=== PATIENT | female | born 1955 | race Caucasian/White ===

== ENCOUNTER → 2021-03-07 08:02 | Outpatient (CLI) | payer OTHER, SELFPAY ==
--- NOTE | ~2021-03-07 | XR_ITS ---
EXAMINATION: XR hip RT min 2V EXAM DATE: 03/07/2021 08:42 INDICATION: Pain in right hip joint . TECHNIQUE: Right hip frontal, 'frog leg' projections for interpretation. There is no prior study fo r comparison. FINDINGS: Smooth right hip femoral head contour, no radiographic evidence of avascular necrosis. The re is mild to moderate right hip primary osteoarthritis. There are no acute fractures or dislocations identified. There is no subcutaneous gas. The soft tissue is unremarkable. There are no radiopaq ue foreign bodies. IMPRESSION: Mild to moderate right hip osteoarthritis. Reviewed, dictated and finalized at location B.
--- NOTE | ~2021-03-07 | XR_ITS ---
EXAMINATION: XR shoulder LT min 2V EXAM DATE: 03/07/2021 08:42 INDICATION: Pain of left shoulder joint. TECHNIQUE: The following left shoulder projections obtained: frontal projection with internal rotatio n, frontal projection with external rotation, Grashey, and axillary (4+ views). There is no prior st udy for comparison. FINDINGS: No evidence of left shoulder rotator cuff calcific tendinosis. There is minimal glenohum eral joint, mild to moderate acromioclavicular joint primary osteoarthritis. There are no acute fract ures or dislocations identified. There is no subcutaneous gas. The soft tissue is unremarkable. T here are no radiopaque foreign bodies. IMPRESSION: Mild to moderate left acromioclavicular joint osteoarthritis. Reviewed, dictated and finalized at location B.
== END ==
PROVIDERS: PCP Nurse Practitioner Family; Visit Provider Nurse Practitioner Family
DX: M19.012 Primary osteoarthritis, left shoulder (principal); M16.11 Unilateral primary osteoarthritis, right hip
CPT/HCPCS: 73030; 73502

== ENCOUNTER → 2021-04-13 18:08 | Outpatient (CLI) | payer OTHER, SELFPAY ==
--- NOTE | ~2021-04-13 | DEXA_ITS ---
Bone Density Report Name: Celi Velasco Age: 65 Sex: Female Ethnicity: White Date of : 1955 Indication: postmenopausal; screening for osteoporosis; Referring Provider: Sonja, Deidra Sierra Study: Bone densitometry was performed. Exam Date: April 13, 2021 Accession number: [id number] Bone Density: Region BMD T-score Z-score Classification AP Spine (L1-L4) 1.060 0.1 1.8 Normal Femoral Neck (Left) 0.756 -0.8 0.6 Normal Total Hip (Left) 0.978 0.3 1.5 Normal Femoral Neck (Right) 0.764 -0.8 0.7 Normal Total Hip (Right) 0.937 0.0 1.2 Normal Total Hip Mean 0.958 0.2 1.4 Normal World Health Organization criteria for BMD impression classify patients as: Normal (T-score at or above -1.0), Osteopenia (T-score between -1.0 and -2.5), or Osteoporosis (T-score at or below -2.5). 10-year Fracture Risk: FRAX not reported because: All T-scores for Spine Total, Hip Total, Femoral Neck at or above -1.0 Previous Exams: Region Exam Age BMD T-score BMD Change BMD Change Date g/cm2 vs Baseline vs Previous AP Spine(L1-L4) 04/13/2021 65 1.060 0.1 -0.018 -0.018 02/11/2014 58 1.079 0.3 Total Hip(Left) 04/13/2021 65 0.978 0.3 -0.037* -0.005 02/11/2014 58 0.983 0.3 -0.032* -0.014 02/22/2010 54 0.997 0.4 -0.018 -0.018 01/28/2008 52 1.015 0.6 Total Hip(Right) 04/13/2021 65 0.937 0.0 -0.055* -0.031* 02/11/2014 58 0.969 0.2 -0.024 -0.006 02/22/2010 54 0.975 0.3 -0.017 -0.017 01/28/2008 52 0.993 0.4 *Denotes significance at 95% confidence level, LSC for AP Spine = 0.022 g/cm2, LSC for Total Hip = 0.027 g/cm2 Clinical Information Provided by Patient: Has used the following medications: Vitamin D, Calcium Patient maximum height was 67.7 Menopause Age: 49 No regular weight bearing exercise Drinks caffeinated beverages Onset of menses at age 13 Number of children 3 Impression: The patient has normal bone mass. The BMD for the Total Hip(Right) decreased, changing by -0.031 since the last DXA exam. Discussion: BONE DENSITY IS ABOVE THE MINIMUM DESIRABLE LEVEL AT ALL SKELETAL SITES TESTED. This patient?s bone mineral density is above the minimum desirable level (T-score -1.0 or better) at all sites measured. The patient should follow a healthful lifestyle (good nutrition with adequate calciu
== END ==
PROVIDERS: PCP Nurse Practitioner Family; Visit Provider Nurse Practitioner Family
DX: Z78.0 Asymptomatic menopausal state (principal)
CPT/HCPCS: 77080

== ENCOUNTER 2022-06-14 08:52 | Emergency (ER) | payer MEDICARE, SELFPAY ==
--- NOTE | ~2022-06-14 | CT_ITS ---
EXAMINATION: CTA chest PE protocol DATE: 06/14/2022 11:03 INDICATION: Chest pain. Elevated d-dimer. TECHNIQUE: Computed tomography (CT) pulmonary angiogram of the chest was performed with 100 mL Omnipa que-350 intravenous contrast. Additional 3D reconstructions utilizing coronal maximum intensity proje ction (MIP) were performed. Automated exposure control and iterative reconstruction technique were em ployed. The dose-length product was 342.49 mGy-cm. COMPARISON: None FINDINGS: Excellent contrast opacification of the pulmonary arteries. There is mild streak artifact from dense contrast in the superior vena cava and right atrium. Mild scattered respiratory motion artifact which does not significantly limit evaluation. No pulmonary embolism. Mild dependent atelectasis in the bi lateral lower lobes with additional small region of discoid atelectasis at the anterobasilar left low er lobe. Tiny left pleural effusion. No pneumonia, pulmonary edema, pneumothorax or right pleural eff usion. Heart size is normal. No pericardial effusion. Thoracic aorta is normal in caliber with no dis section. No pathologically enlarged thoracic lymphadenopathy. Bilateral breast implants. Visualized u pper abdomen is unremarkable. Minimal thoracic spondylosis. Nondisplaced lateral left fourth rib frac ture and mildly displaced lateral left fifth and sixth rib fractures. IMPRESSION: 1. Bilateral left fourth-sixth rib fractures with tiny left pleural effusion. No pulmonary embolism, pneumothorax or other acute cardiopulmonary disease. Reviewed, dictated and finalized at location B. IMPRESSION: 1. Bilateral left fourth-sixth rib fractures with tiny left pleural effusion. N o pulmonary embolism, pneumothorax or other acute cardiopulmonary disease.
--- NOTE | ~2022-06-14 | XR_ITS ---
EXAMINATION: XR ribs LT 2V w CXR 2V DATE: 06/14/2022 10:17 INDICATION: Left chest pain. TECHNIQUE: Frontal and lateral views of the chest and 2 views on 3 radiographs of the left ribs were obtained. COMPARISON: Chest radiograph 07/14/2018 FINDINGS: CHEST TWO VIEWS: There are airspace opacities at left lung base. There is a small left pleural effusi on. There is mild scarring at the lung apices. No pneumothorax. The heart size is normal. LEFT RIBS: There are fractures of left fourth-sixth ribs. IMPRESSION: 1. Acute fractures of left fourth-sixth ribs. 2. Small left pleural effusion. 3. Airspace opacities at left lung base, likely atelectasis. Reviewed, dictated and finalized at location A.
[2022-06-14 08:56] VITALS: PULSE 75; RESP 20; TEMP 36.8; O2SAT 99
--- NOTE | 2022-06-14 09:02 | ECG_ITS ---
Measurements Intervals Brick Rate: 68 P: 53 MO: 151 QRS: 2 QRSD: 89 T: 31 QT: 381 QTc: 408 Interpretive Statements SINUS RHYTHM LOW QRS VOLTAGE IN PRECORDIAL LEADS [QRS DEFLECTION < 1.0 mV IN CHEST LEADS] POSSIBLE ANTERIOR MYOCARDIAL INFARCTION , OF INDETERMINATE AGE [30 ms Q WAVE IN V3/V4, OR R < 0.2 mV IN V4] NO PREVIOUS ECG AVAILABLE FOR COMPARISON Electronically Signed On 06-14-2022 14:51:52 CDT by Hoang Winston M.D.
--- NOTE | 2022-06-14 09:12 | ED.FALL ---
HPI - Fall General Chief Complaint: Fall <BELÉN Townsend Last Filed: 06/14/22 14:19> Stated Complaint: Fall on saturday, chest pain <BELÉN Townsend Last Filed: 06/14/22 14:19> Time Seen by Provider: 06/14/22 08:57 <BELÉN Townsend Last Filed: 06/14/22 14:19> Source: patient <BELÉN Townsend Last Filed: 06/14/22 14:19> Mode of arrival: ambulatory <BELÉN Townsend Last Filed: 06/14/22 14:19> Limitations: no limitations <BELÉN Townsend Last Filed: 06/14/22 14:19> History of Present Illness HPI Narrative: Patient is a 66 y/o female who presents to the ED with c/o a fall. Patient reports she was walking down a hill at [facility] presents today which she tripped and fell. She did not hit her head or lose consciousness. No prodromal symptoms. She is unsure how she landed exactly. Since then, she has had pain in her left anterior chest pain under her left breast, radiating to her lateral chest wall. She states the pain aggravated with talking, movement, coughing, taking deep breaths. Patient takes meloxicam for arthritis and has not tried anything further for pain. Denies chest pain at rest. Denies shortness of breath. Denies abdominal pain, nausea, vomiting, headache. Patient has history of hyperlipidemia, but denies hypertension, diabetes, smoking, family history of heart disease. <BELÉN Townsend Last Filed: 06/14/22 14:19> Related Data Allergies/Adverse Reactions: Allergies Allergy/AdvReac Type Severity Reaction Status Date / Time naproxen AdvReac Unknown Nausea and Unverified 07/14/18 14:25 Vomiting <BELÉN Townsend Last Filed: 06/14/22 14:19> Review of Systems Review of Systems: CONSTITUTIONAL: Denies fever, chills, or sweats. EYES: Denies visual changes. CARDIOVASCULAR: Denies CP. RESPIRATORY: Reports pleuritic pain. Denies cough or dyspnea. GASTROINTESTINAL: Denies abdominal pain, nausea, vomiting, or diarrhea. MUSCULOSKELETAL: Reports L chest wall, rib pain. NEUROLOGIC: Denies HI, LOC, headache, numbness, or weakness. <Tila Acuña PA-C - Last Filed: 06/14/22 14:19> All systems reviewed & are unremarkable except as noted in HPI and below <Tila Acuña PA-C - Last Filed: 06/14/22 14:19> PMFSH Past Medical History Medical History: Medical History (Updated 06/14/22 @ 11:38 by Tila Acuña PA-C) Depression Glaucoma HLD (hyperlipidemia) <Tila Acuña PA-C - Last Filed: 06/14/22 14:19> Surgical History Surgical History: Surgical History (Updated 06/14/22 @ 09:16 by Tila Acuña PA-C) No pertinent past surgical history <Tila Acuña PA-C - Last Filed: 06/14/22 14:19> Social History Social History: Social History (Updated 06/14/22 @ 09:16 by Tila Acuña PA-C) Smoking status: Never smoker <Tila Acuña PA-C - Last Filed: 06/14/22 14:19> Exam Narrative: GENERAL: Well appearing, well-nourished, non-toxic, in no acute distress. HEAD: Normocephalic, atraumatic. NECK: Supple. No adenopathy, no masses. No midline spinal tenderness. RESPIRATORY: Airway patent, respirations nonlabored. Clear to auscultation bilaterally, no rales, rhonchi, wheezing. No splinting or decreased lung sounds. CARDIOVASCULAR: Regular rate and rhythm without murmurs, rubs, or gallops. Peripheral pulses 2+ and equal bilaterally. ABDOMINAL: Soft, nontender, nondistended, no hepatosplenomegaly. Normoactive BS. MUSCULOSKELETAL: Moves all extremities. Strength/ROM intact without gross deformities or TTP. No edema. No calf tenderness. TTP over left sided anterior chest wall, under left breast, laterally below axillary region. No significant posterior chest wall/rib cage tenderness. No midline spinal tenderness. SKIN: Warm, dry, normal color. No rashes. NEURO: A&O X3. Speech clear. Cranial nerves II-XI
[2022-06-14 09:48] LABS: Basophils Absolute Auto 0.1 K/mm3 (0.0-0.1); Basophils Percent Auto 1.2 % (0.2-1.2); Eosinophils Absolute Auto 0.2 K/mm3 (0-0.3); Eosinophils Percent Auto 3.6 % (0-4.4); Hematocrit 37.3 % (37.0-47.0); Hemoglobin 12.3 g/dL (12.0-15.0); Immature Granulocyte Absolute 0.01 K/mm3 (0.00-0.031); Immature Granulocyte Percent A 0.2 % (0-0.5); Lymphocytes Absolute Auto 1.32 K/mm3 (0.9-3.2); Lymphocytes Percent Auto 23.5 % (18.3-44.2); Mean Corpuscular Hemoglobin 30.4 pg (26-34); Mean Corpuscular Volume 92.3 fl (80-100); Mean Platelet Volume 9.1 fl (7.4-10.4); Monocytes Absolute Auto 0.4 K/mm3 (0.1-0.6); Monocytes Percent Auto 6.8 % (2.6-8.5); Neutrophils Absolute Auto 3.6 K/mm3 (1.3-6.7); Neutrophils Percent Auto 64.7 % (45.5-73.1); Platelet Count Result 210 k/mm3 (150-375); Red Blood Count 4.04 M/mm3 (4.2-5.4); Red Cell Distribution Width 12.6 % (11.5-14.5); White Blood Count 5.6 K/mm3 (4.5-10.0)
[2022-06-14 10:12] LABS: Alanine Aminotransferase 36 U/L (6-35); Albumin Level 4.2 g/dL (3.5-5.1); Alkaline Phosphatase 110 U/L (38-126); Anion Gap 6 mmol/L (8-16); Aspartate Amino Transferase 41 U/L (14-36); Bilirubin,Total 0.5 mg/dL (0.2-1.3); Blood Urea Nitrogen 21 mg/dL (7-17); Calcium 9.2 mg/dL (8.4-10.2); Carbon Dioxide 28 mmol/L (22-30); Chloride 102 mmol/L (98-107); Estimated Glomerular Filt Rate 56; Glucose 105 mg/dL (65-110); Potassium 4.3 mmol/L (3.4-5.0); Sodium 136 mmol/L (137-145)
[2022-06-14 10:14] LABS: Ovalocytes 1+ (NORMAL); Platelet Estimate Adequate (Adequate)
[2022-06-14 10:15] LABS: D Dimer 1.72 ug/mL (<0.48)
[2022-06-14 10:15] LABS: Schistocytes None Seen (NORMAL)
[2022-06-14 10:23] LABS: Troponin I < 0.012 ng/mL (0.000-0.034)
[2022-06-14 11:02] VITALS: BP 142/94; PULSE 70; RESP 18; O2SAT 99
[2022-06-14] MEDS: MORPHINE SULFATE (*CRX) 4 MG/ML INJ IV PUSH (12:01)
[2022-06-14] MEDS: ONDANSETRON INJ 4 MG/2 ML VIAL IV PUSH (12:02)
== END 2022-06-14 12:10 | disposition home or self-care (01) ==
PROVIDERS: Physician Assistant; Emergency Provider Emergency Medicine; PCP Nurse Practitioner Family
DX: S22.42XA Multiple fractures of ribs, left side, initial encounter for closed fracture (principal); E78.5 Hyperlipidemia, unspecified; M19.90 Unspecified osteoarthritis, unspecified site; H40.9 Unspecified glaucoma; R94.31 Abnormal electrocardiogram [ECG] [EKG]; W10.2XXA Fall (on)(from) incline, initial encounter
CPT/HCPCS: 36415; 71046; 71100; 71275; 80053; 84484; 85025; 85380; 93005; 96365; 96375; 99284; J0131; J2270; J2405; Q9967

== ENCOUNTER → 2022-12-25 10:56 | Outpatient (CLI) | payer MEDICARE, SELFPAY ==
--- NOTE | ~2022-12-25 | XR_ITS ---
EXAMINATION: XR hip RT min 2V DATE: 12/25/2022 11:31 INDICATION: Right hip pain TECHNIQUE: Two views of right hip were obtained. COMPARISON: 03/07/2021 FINDINGS: Bone alignment is normal. There is moderate osteoarthritis of the hip. No fracture is ident ified. IMPRESSION: 1. Moderate hip osteoarthritis without acute findings. Reviewed, dictated and finalized at location L.
== END ==
PROVIDERS: PCP Nurse Practitioner Family; Visit Provider Nurse Practitioner Family
DX: M16.11 Unilateral primary osteoarthritis, right hip (principal); M25.551 Pain in right hip
CPT/HCPCS: 73502

== ENCOUNTER 2023-05-03 10:02 | Inpatient (IN) | payer MEDICARE, SELFPAY ==
[2023-05-03] VITALS (15 sets, daily range): BP systolic 115–131; BP diastolic 64–85; PULSE 68–93; RESP 18–20; TEMP 36.6–36.9; O2SAT 92–100; BMI 25.1
--- NOTE | ~2023-05-03 | MR_ITS ---
EXAMINATION: MR MRCP wo/w con/w 3D wo ind DATE: 05/04/2023 09:25 INDICATION: Right upper quadrant pain TECHNIQUE: Magnetic resonance imaging (MRI) of the abdomen was performed without and with intravenous contrast. Sequences included coronal T2-weighted SS-FSE ARC, coronal T2-weighted FS SS-FSE, coronal T2-weighted 2D FS FIESTA, Water:Coronal LAVA-Flex, sagittal T2-weighted SS-FSE ARC, axial SSFSE ARC, axial 3D DualEcho, axial DWI B=600, axial T1-weighted LAVA, FAT:Coronal LAVA-Flex, and coronal in and opposed phase LAVA-Flex. Thick-slab T2-weighted FRFSE-XL images were obtained for magnetic resonance cholangiopancreatography (MRCP). Maximum intensity projection 3-D reconstructions of the volumetric data were created by the technologist. Postcontrast sequences included a time course of axial T1-weig hted LAVA, FAT:Coronal LAVA-Flex, coronal in and opposed phase LAVA-Flex, and Water:Coronal LAVA-Flex . COMPARISON: CT, 05/03/2023 CONTRAST: Multihance, 14 cc FINDINGS: ABDOMEN MRI: Bilateral breast implants are noted. The gallbladder is distended and contains multiple stones. There is wall thickening the gallbladder with small amount of pericholecystic fluid. The live r, spleen, pancreas, and adrenal glands are normal. There is no abnormal enhancement after contrast a dministration. No pathologically enlarged abdominal lymph nodes are identified. There are no dilated loops of bowel. ABDOMEN MRCP: There are no stones or stricture of the common bile duct. The pancreatic duct is normal in caliber. The normal common bile duct measures 6 mm. IMPRESSION: 1. Findings consistent with acute cholecystitis. 2. No stones or stricture of the common bile duct. Reviewed, dictated and finalized at location A.
--- NOTE | ~2023-05-03 | CT_ITS ---
CT of the Abdomen and Pelvis: Indication: Right upper quadrant pain Technique: 2.5 mm axial scans were obtained through the abdomen and pelvis following intravenous adm inistration of 100 cc of Omnipaque 350. Dose reduction technique was used on this scan by utilizing a utomated exposure control and iterative reconstruction technique. The dose-length product (DLP) was 5 92.12 mGy-cm. COMPARISON: 10/11/2008 Findings: Scans through the lung bases are unremarkable. The liver, spleen, pancreas, adrenals and kidneys are within normal limits. There is mild gallbladder wall thickening. Small gallstone present near the gallbladder neck. No evidence of aortic aneurysm. No lymphadenopathy. No bowel obstruction or bowel wall thickening. There is no evidence to suggest acute appendicitis. Th ere is colonic diverticulosis. Images through the pelvis were performed. Urinary bladder unremarkable. No adnexal mass seen. No asci aric. Impression: Cholelithiasis and mild gallbladder wall thickening. Findings could reflect acute cholecystitis. Taqueria elate clinically. Consider ultrasound and/or HIDA scan as indicated. Reviewed, dictated and finalized at location . Impression: Cholelithiasis and mild gallbladder wall thickening. Findings could reflect acu te cholecystitis. Correlate clinically. Consider ultrasound and/or HIDA scan as indicated.
--- NOTE | ~2023-05-03 | US_ITS ---
EXAMINATION: US right upper quadrant DATE: 05/03/2023 11:33 INDICATION: Cholecystitis TECHNIQUE: Multiple grayscale and Doppler ultrasound images of the abdomen were obtained. COMPARISON: 02/15/2014 FINDINGS: The body and visualized tail the pancreas are normal. Portions of the pancreatic head and distal most tail are excluded from the [id number]. The proximal abdominal aorta and inferior vena cava are no rmal. Liver has normal contour, with a smooth surface. There is increased parenchymal echogenicity an d coarsened echotexture consistent with diffuse hepatic steatosis. No intrahepatic biliary duct dilat ion suspected. Portal venous flow was seen in the hepatopetal, normal direction and has normal Dopple r waveform. There are a few small shadowing gallstones in the dependent aspect of the gallbladder whi ch is dilated to 4.3 cm in maximal diameter with borderline gallbladder wall thickening. The common b ile duct measures 5 mm, which is normal. Sonographic Kendrick sign was reported as positive by the sono grapher. IMPRESSION: 1. Mildly dilated gallbladder with borderline wall thickening, cholelithiasis and positive sonographi c Kendrick's sign consistent with acute cholecystitis. Reviewed, dictated and finalized at location A. IMPRESSION: 1. Mildly dilated gallbladder with borderline wall thickening, cholelithiasis a nd positive sonographic Kendrick's sign consistent with acute cholecystitis.
--- NOTE | 2023-05-03 10:21 | ED.NAVMDI ---
HPI - Nausea/Vomiting/Diarrhea General Chief complaint: Nausea/Vomiting/Diarrhea Stated complaint: Dr sent for gallbladder Time Seen by Provider: 05/03/23 10:20 Source: patient and family (boyfriend) Mode of arrival: ambulatory Limitations: no limitations History of Present Illness HPI Narrative: Patient is a pleasant 67-year-old female with a past medical hx of depression, glaucoma, thyroid disease and HLD who presents to the emergency department today ambulatory with a steady gait by private vehicle for evaluation of having a gallbladder attack. She has had 2 days of nausea, vomiting, pain. she denies diarrhea. she states that she has had this happen in the past 2-3 times. She denies fever, chills, urinary symptoms, alcohol use, chest pain, shortness of breath, dizziness, back pain, urinary symptoms. Related Data Home Medications Medication Instructions Recorded Confirmed atorvastatin 10 mg tablet 10 mg PO DIRECTED 05/03/23 05/03/23 brimonidine 0.2 %-timolol 0.5 % 2 drp EACH EYE DAILY 05/03/23 05/03/23 eye drops (Combigan) doxycycline monohydrate 100 mg 100 mg PO DAILY 05/03/23 05/03/23 tablet levothyroxine 75 mcg tablet 75 mcg PO DAILY 05/03/23 05/03/23 Allergies Allergy/AdvReac Type Severity Reaction Status Date / Time naproxen AdvReac Unknown Nausea and Verified 05/03/23 10:15 Vomiting Review of Systems Review of Systems: CONSTITUTIONAL: Denies fever, chills, or sweats. EYES: Denies visual changes, redness, or discharge. ENT: Denies rhinorrhea, congestion, sore throat, or otalgia. CARDIOVASCULAR: Denies chest pain, palpitations, or edema. RESPIRATORY: Denies cough or dyspnea. GASTROINTESTINAL: RUQ and epigastric abdominal pain, nausea, vomiting. denies diarrhea. GENITOURINARY: Denies dysuria or hematuria. SKIN: Denies rash or itching. MUSCULOSKELETAL: Denies back pain, joint pain, or myalgia. NEUROLOGIC: Denies headache, numbness, or weakness. PSYCHIATRIC: Denies anxiety or depression. All systems reviewed & are unremarkable except as noted in HPI and below PMFSH Past Medical History Medical History Depression Glaucoma HLD (hyperlipidemia) Mitral valve prolapse Osteoarthritis Surgical History Surgical History No pertinent past surgical history Family History Family History Mother Cholecystitis Sibling Cholecystitis Postoperative acute deep vein thrombosis (DVT) of lower extremity Social History Social History Smoking status: Never smoker Alcohol intake: never Substance use: never Lack of Transportation: No Lack of Food: Never True Current Housing: I Have Housing Concerned About Future Housing: No Difficulty Paying Gas/Electric Bills: No Difficulty Paying for Meds: No Currently Unemployed: YES Education: High School Diploma/GED Difficulty w/ Childcare or Family Care: No Living arrangements: with family Spiritual care concerns: No Exam Narrative: GENERAL: Well-appearing, well-nourished, and in no acute distress. HEAD: Normocephalic, atraumatic. EYES: PERRLA and EOMI. ENT: Nares clear, no rhinorrhea or epistaxis. Mucous membranes moist. NECK: Supple. CHEST: Clear to auscultation. No respiratory distress. HEART: Regular rate and rhythm. No murmur heard. Normal peripheral pulses. ABDOMEN: Soft, TTP to epigastric and RUQ, nondistended, normal active bowel sounds. EXTREMITIES: Normal range of motion. No edema. SKIN: Warm, dry, no rash. NEURO: No focal deficits. Alert and oriented x3. CN II-XII grossly intact PSYCH: Normal mood and affect. Course PALS SPECIALIST/PA Physician Supervision discussed admission with Mechelle Ambriz MD ED attending, aware of admission and agreeable Reevaluation(s) Reevaluation #1:
[2023-05-03 10:25] LABS: Basophils Percent Auto 0.6 % (0.2-1.2); Eosinophils Absolute Auto 0.2 K/mm3 (0-0.3); Eosinophils Percent Auto 2.2 % (0-4.4); Hematocrit 36.4 % (37.0-47.0); Hemoglobin 12.2 g/dL (12.0-15.0); Immature Granulocyte Absolute 0.02 K/mm3 (0.00-0.031); Immature Granulocyte Percent A 0.3 % (0-0.5); Lymphocytes Percent Auto 13.3 % (18.3-44.2); Mean Corpuscular HGB Conc 33.5 g/dl (32-36); Mean Corpuscular Hemoglobin 31.9 pg (26-34); Mean Platelet Volume 9.2 fl (7.4-10.4); Monocytes Absolute Auto 0.5 K/mm3 (0.1-0.6); Monocytes Percent Auto 6.7 % (2.6-8.5); Neutrophils Absolute Auto 5.2 K/mm3 (1.3-6.7); Neutrophils Percent Auto 76.9 % (45.5-73.1); Platelet Count Result 230 k/mm3 (150-375); Red Blood Count 3.83 M/mm3 (4.2-5.4); Red Cell Distribution Width 12.4 % (11.5-14.5); White Blood Count 6.8 K/mm3 (4.5-10.0)
[2023-05-03 10:27] LABS: Appearance Urine Clear (Clear); Bilirubin Urine Negative (Negative); Blood Urine Negative (Negative); Color Urine Yellow (Yellow); Glucose Urine UA Negative (Negative); Ketones Urine Negative (Negative); Leukocyte Esterase Ur Negative LEU/UL (Negative); Nitrate Urine Negative (Negative); Protein Urine Negative (Negative); Specific Grav Ur 1.015 (1.001-1.035); Urobilinogen Urine 0.2 mg/dL (<2.0)
[2023-05-03 10:31] LABS: Add Urine Microscopic? NO
[2023-05-03 10:41] LABS: Alanine Aminotransferase 517 U/L (6-35); Albumin Level 4.4 g/dL (3.5-5.1); Alkaline Phosphatase 99 U/L (38-126); Anion Gap 3 mmol/L (8-16); Aspartate Amino Transferase 613 U/L (14-36); Bilirubin,Total 0.9 mg/dL (0.2-1.3); Blood Urea Nitrogen 18 mg/dL (7-17); Calcium 9.6 mg/dL (8.4-10.2); Carbon Dioxide 32 mmol/L (22-30); Chloride 101 mmol/L (98-107); Estimated CRCL calculation 52 ml/min; Estimated Glomerular Filt Rate > 60; Glucose 108 mg/dL (65-110); Potassium 3.7 mmol/L (3.4-5.0); Sodium 136 mmol/L (137-145)
[2023-05-03 10:55] LABS: Amylase 1655 U/L (30-110)
[2023-05-03 11:33] LABS: Lipase 14579 U/L (23-300)
[2023-05-03] MEDS: SODIUM CHLORIDE 0.9% IV 1,000 ML 999 ML IV CONT (12:51)
[2023-05-03] MEDS: fentaNYL CITRATE INJ (*CRX) 100 MCG/2 ML VIAL 75 MCG IV PUSH (12:53)
[2023-05-03] MEDS: ONDANSETRON INJ 4 MG/2 ML VIAL IV PUSH (12:55)
[2023-05-03] MEDS: FAMOTIDINE 20 MG/2 ML VIAL IV PUSH (12:56)
[2023-05-03] MEDS: ceFAZolin 2 GM/D5W 50 ML 2 GM/50 ML BAG IVPB (13:07)
--- NOTE | 2023-05-03 13:56 | PM.IMHP ---
H&P: HPI History of Present Illness Date/Time: 05/03/23 13:56 Chief Complaint: Nausea, vomiting, abdominal pain Narrative: Patient is a 67-year-old female with past med history of hyperlipidemia, depression, osteoarthritis, mitral valve prolapse who presents to ED complaints of abdominal pain, nausea, and vomiting. This is patient's 3rd episode of having the symptoms of nausea, vomiting, diaphoresis, and abdominal pain. Her symptoms are yesterday started to ease up around 4:30. She called her PCP who directed her to the ED. patient is otherwise very active, lives with her is independent. She has family history of gallbladder issues with her mother and sister both having episodes of cholecystitis. She reports that her sister diet from a DVT after back surgery she is concerned that she is hypercoagulable. In the ED: No leukocytosis, she has significant elevated LFTs AST 613, ALT 517, amylase 1655, lipase 14,000. Right upper quadrant ultrasound shows mildly dilated gallbladder with wall thickening consistent with acute cholecystitis. Abdominal CT scan shows cholelithiasis and mild gallbladder thickening. General surgery was consulted who recommended ordering an MRCP and will see patient in consultation for cholecystectomy. Gastroenterology has been informed patient may need ERCP with concern of gallstone pancreatitis. Patient being admitted for further evaluation and treatment of acute cholecystitis, choledocholithiasis, gallstone pancreatitis. Review of Systems Review of Systems: Constitutional: No Fever, No Chills, No Night Sweats, endorses episode of diaphoresis ENT/Mouth: No Hearing Changes, No Ear Pain, No Nasal Congestion, No Sinus Pain, No Hoarseness, No sore throat, No Rhinorrhea, No Swallowing Difficulty Eyes: No Eye Pain, No Redness, No Vision Changes Cardiovascular: No Chest Pain, No Palpitations, No Dyspnea on Exertion, No Orthopnea, No Claudication, No Edema Respiratory: No Cough, No Sputum, No Wheezing, No Shortness of Breath Gastrointestinal: Endorses nausea, vomiting, abdominal pain Genitourinary: No Dysuria, No Urinary Frequency, No Hematuria, No Urinary Incontinence, No Urgency Musculoskeletal: No Arthralgias, No Myalgias, No Joint Swelling, No Joint Stiffness, No Back Pain Skin: No Skin Lesions, No Pruritis, No Hair Changes Neuro: No Weakness, No Numbness, No Paresthesias, No Loss of Consciousness, No Syncope, No Dizziness, No Headache Psych: No Anxiety/Panic, No Depression, No Insomnia Heme: No Bruising, No Bleeding Lymph: No Adenopathy Endocrine: No Polyuria, No Polydipsia, No Temperature Intolerance PMF Past Medical History Medical History Depression Glaucoma HLD (hyperlipidemia) Mitral valve prolapse Osteoarthritis Surgical History Surgical History No pertinent past surgical history Family History Family History Mother Cholecystitis Sibling Cholecystitis Postoperative acute deep vein thrombosis (DVT) of lower extremity Social History Social History Smoking status: Never smoker Substance use: never Living arrangements: with family Meds Home Medications and Allergies Home Medications Medication Instructions Recorded Confirmed Type hydrocodone 5 mg-acetaminophen 325 1 tablet PO Q6H PRN pain #20 tabs 06/14/22 Rx mg tablet Allergies Allergy/AdvReac Type Severity Reaction Status Date / Time naproxen AdvReac Unknown Nausea and Verified 05/03/23 10:15 Vomiting Vital Signs Vital Signs - 24 hr 05/03/23 10:10 05/03/23 12:11 05/03/23 12:12 Temperature 36.9 C Pulse Rate 93 Respiratory Rate 18 Blood Pressure 121/65 126/78 Pulse Oximetry 97 99 100 Oxygen Delivery Room Air 05/03/23 12:15 05/03/23
[2023-05-03] MEDS: LACTATED RINGERS 1,000 ML 100 ML IV CONT (16:16)
[2023-05-03] MEDS: MORPHINE SULFATE (*CRX) 2 MG/ML INJ IV PUSH (19:10)
[2023-05-03] MEDS: HYDROcodone/acetaminophen (*CRX) 5-325 MG TABLET 1 TAB PO (22:56)
[2023-05-04] MEDS: MORPHINE SULFATE (*CRX) 2 MG/ML INJ IV PUSH ×2 (04:01→11:05)
[2023-05-04 04:13] VITALS: BP 127/54; PULSE 81; RESP 20; TEMP 36.6; O2SAT 99
[2023-05-04 06:49] LABS: Basophils Percent Auto 0.8 % (0.2-1.2); Eosinophils Absolute Auto 0.2 K/mm3 (0-0.3); Eosinophils Percent Auto 5.3 % (0-4.4); Hematocrit 33.5 % (37.0-47.0); Hemoglobin 10.8 g/dL (12.0-15.0); Immature Granulocyte Absolute 0.01 K/mm3 (0.00-0.031); Immature Granulocyte Percent A 0.3 % (0-0.5); Lymphocytes Absolute Auto 0.88 K/mm3 (0.9-3.2); Lymphocytes Percent Auto 22.2 % (18.3-44.2); Mean Corpuscular HGB Conc 32.2 g/dl (32-36); Mean Corpuscular Hemoglobin 31.4 pg (26-34); Mean Corpuscular Volume 97.4 fl (80-100); Mean Platelet Volume 9.1 fl (7.4-10.4); Monocytes Absolute Auto 0.4 K/mm3 (0.1-0.6); Monocytes Percent Auto 10.3 % (2.6-8.5); Neutrophils Absolute Auto 2.4 K/mm3 (1.3-6.7); Neutrophils Percent Auto 61.1 % (45.5-73.1); Platelet Count Result 182 k/mm3 (150-375); Red Blood Count 3.44 M/mm3 (4.2-5.4); Red Cell Distribution Width 12.3 % (11.5-14.5)
[2023-05-04 06:57] LABS: Alanine Aminotransferase 331 U/L (6-35); Albumin Level 3.6 g/dL (3.5-5.1); Alkaline Phosphatase 93 U/L (38-126); Anion Gap 6 mmol/L (8-16); Aspartate Amino Transferase 274 U/L (14-36); Bilirubin,Total 0.5 mg/dL (0.2-1.3); Blood Urea Nitrogen 14 mg/dL (7-17); Calcium 8.7 mg/dL (8.4-10.2); Carbon Dioxide 31 mmol/L (22-30); Chloride 102 mmol/L (98-107); Estimated CRCL calculation 52 ml/min; Estimated Glomerular Filt Rate > 60; Glucose 89 mg/dL (65-110); Lipase 1913 U/L (23-300); Magnesium 2.1 mg/dL (1.6-2.3); Potassium 3.6 mmol/L (3.4-5.0); Sodium 139 mmol/L (137-145)
--- NOTE | 2023-05-04 08:19 | PM.IMPN ---
Progress Note: A&P Assessment and Plan (1) Acute gallstone pancreatitis: Code(s): K85.10 - Biliary acute pancreatitis without necrosis or infection Status: Acute Assessment and Plan: Third episode of abdominal pain likely recurrent cholecystitis. Now with acute cholecystitis now with elevated LFTs and pancreatic enzymes Abdominal CT scan and ultrasound consistent with acute cholecystitis AST and ALT on admission were 613/517 continue to trend Amylase elevated at 1655 and lipase elevated at 14,579; lipase trending down Will check MRCP to evaluate for possible retained stone and choledocholithiasis General surgery Dr. Frazier consulted for cholecystectomy GI Dr. Reyes consulted for possible ERCP (2) Cholelithiasis with acute cholecystitis: Qualifiers: Biliary obstruction: without biliary obstruction Qualified Code(s): K80.00 - Calculus of gallbladder with acute cholecystitis without obstruction Code(s): K80.00 - Calculus of gallbladder with acute cholecystitis without obstruction Status: Acute Assessment and Plan: Monitor vital signs, I and O's, check stool output, neuro status and patient is a fall risk Monitor serum electrolytes and CBC IV pain management IV fluid resuscitation Zosyn 3.375 mg every 6 hours Consult general surgery and GI for further evaluation, appreciate assistance and recommendation Diet:NPO MRCP ordered Plan chronic conditions -osteoarthritis -history of depression -history of hyperlipidemia -history of mitral valve prolapse -history of hypothyroidism continue Synthroid Subjective Date/time seen: 05/04/23 08:19 Interval history: Patient experiencing active nausea and headache. Abdominal pain has improved as well as her bloating but she is somewhat tender to palpation in the right upper quadrant. Awaiting further instruction from General surgery whether she will undergo cholecystectomy or not. Denies any fevers, vomiting, diarrhea, body aches and chills. Exam Narrative: GENERAL: uncomfortable, no acute distress HENMT: moist mucous membranes EYES: EOM intact b/l NECK: no lymphadenopathy RESPIRATORY: clear to auscultation CARDIO: RRR GI: soft, mild right upper quadrant tenderness to palpation, bowel sounds present SKIN: no rashes EXTREMITIES: no edema, redness or tenderness Objective Data Vital Signs Vital Signs: Vital Signs - 24 hr 05/03/23 10:10 05/03/23 12:11 05/03/23 12:12 Temperature 98.5 F Pulse Rate 93 Respiratory Rate 18 Blood Pressure 121/65 126/78 Pulse Oximetry 97 99 100 Oxygen Delivery Room Air 05/03/23 12:15 05/03/23 12:16 05/03/23 12:30 Temperature Pulse Rate Respiratory Rate Blood Pressure 115/68 131/67 Pulse Oximetry 100 100 99 Oxygen Delivery 05/03/23 12:31 05/03/23 12:45 05/03/23 13:00 Temperature Pulse Rate Respiratory Rate Blood Pressure Pulse Oximetry 99 99 98 Oxygen Delivery 05/03/23 13:17 05/03/23 13:30 05/03/23 14:32 Temperature Pulse Rate 68 80 Respiratory Rate 18 18 Blood Pressure 124/64 130/76 Pulse Oximetry 95 100 99 Oxygen Delivery 05/03/23 17:06 05/03/23 19:45 05/03/23 19:48 Temperature 97.8 F 97.8 F Pulse Rate 80 80 Respiratory Rate 20 20 Blood Pressure 131/75 131/75 Pulse Oximetry 100 100 Oxygen Delivery Room Air 05/03/23 19:55 05/03/23 19:55 05/03/23 20:00 Temperature 97.8 F 97.8 F Pulse Rate 76 86 Respiratory Rate 20 20 Blood Pressure 124/67 120/85 Pulse Oximetry 100 92 Oxygen Delivery Room Air 05/04/23 04:13 Temperature 97.8 F Pulse Rate 81 Respiratory Rate 20 Blood Pressure 127/54 L Pulse Oximetry 99 Oxygen Delivery Intake/Output Intake/Output: Intake & Output 05/01/23 05/02/23 05/03/23 05/04/23 23:59 23:59 23:59 23:59 Intake Total 50 0 Balance 50 0 Meds/Results Medications: Active Medications Generic Name Dose Rout
--- NOTE | 2023-05-04 08:55 | WPDGICN ---
Assessment and Plan Assessment and plan (1) Acute gallstone pancreatitis: Code(s): K85.10 - Biliary acute pancreatitis without necrosis or infection Status: Acute Assessment and Plan: admitted to hospital, pain is better denies alcohol use surgery to see will order MRCP to assess biliary system and rule out bile duct stones (2) Cholelithiasis with acute cholecystitis: Qualifiers: Biliary obstruction: without biliary obstruction Qualified Code(s): K80.00 - Calculus of gallbladder with acute cholecystitis without obstruction Code(s): K80.00 - Calculus of gallbladder with acute cholecystitis without obstruction Status: Acute Assessment and Plan: medical support surgery will assess (3) Elevated liver enzymes: Code(s): R74.8 - Abnormal levels of other serum enzymes Status: Acute Assessment and Plan: from acute presentation monitor and repeat liver enzymes normal bili (4) Upper abdominal pain: Code(s): R10.10 - Upper abdominal pain, unspecified Status: Acute Assessment and Plan: npo, GS pancreatitis GI Consult Note Consult date/time: 05/04/23 08:55 Reason for consult: GS pancreatitis, elevated liver enzymes HPI: Celi Velasco is a 67 year old female with almost 2 days of dyspepsia and intermittent abdominal discomfort, she had 2 episodes of moderate pain but was not enough to come to ER until she had severe pain in upper abdomen with nausea and vomiting, she finally came to ER after she talked to her PCP. ER evaluation without leukocytosis, she has significant elevated LFTs AST 613, ALT 517, amylase 1655, lipase 14,000. Right upper quadrant ultrasound shows mildly dilated gallbladder with wall thickening consistent with acute cholecystitis.? Abdominal CT scan shows cholelithiasis and mild gallbladder thickening. She has family history of gallbladder issues with her mother and sister both having episodes of cholecystitis.?Pain is better now. Review of Systems Constitutional: Constitutional: Denies chills Eyes: Eyes: Denies blurry vision ENT: Reports Normal hearing present Cardiovascular: Cardiovascular: Denies lightheadedness Respiratory: Respiratory: Denies cough Gastrointestinal: Gastrointestinal: Reports abdominal pain, Reports nausea and Reports vomiting Genitourinary: Genitourinary: Denies hematuria Musculoskeletal: Musculoskeletal: Denies neck pain Integumentary/Breasts: Skin/Breast: Denies rash Neurologic: Denies confusion Psychiatric: Psychiatric: Denies behavioral changes [facility] Past Medical History Medical History (Updated 05/04/23 @ 09:01 by Andrew Love MD) Depression Elevated liver enzymes Glaucoma HLD (hyperlipidemia) Mitral valve prolapse Osteoarthritis Upper abdominal pain Surgical History Surgical History No pertinent past surgical history Family History Family History Mother Cholecystitis Sibling Cholecystitis Postoperative acute deep vein thrombosis (DVT) of lower extremity Social History Social History Smoking status: Never smoker Alcohol intake: never Substance use: never Lack of Transportation: No Lack of Food: Never True Current Housing: I Have Housing Concerned About Future Housing: No Difficulty Paying Gas/Electric Bills: No Difficulty Paying for Meds: No Currently Unemployed: YES Education: High School Diploma/GED Difficulty w/ Childcare or Family Care: No Living arrangements: with family Spiritual care concerns: No Meds Home Medications and Allergies Home Medications Medication Instructions Recorded Confirmed Type All Day Calcium 600 mg PO DAILY 05/03/23 05/03/23 History [place] 3 Fish Oil 1,000 mg PO DAILY 05/03/23 05/03/23 History One-A-Da
[2023-05-04] MEDS: ONDANSETRON INJ 4 MG/2 ML VIAL IV PUSH (11:04)
[2023-05-04] MEDS: PIPERACILLN/TAZ 3.375GM/NS50ML 3.375 GM/50 ML BAG IVPB ×3 (11:15→22:05)
--- NOTE | 2023-05-04 11:44 | PHAR ---
Home med verified: Retaine MGD PF eye drops. No Rx information as the product is OTC
--- NOTE | 2023-05-04 13:54 | PM.CNGS ---
Assessment and Plan Assessment and plan (1) Acute gallstone pancreatitis: Code(s): K85.10 - Biliary acute pancreatitis without necrosis or infection Status: Acute Assessment and Plan: await ERCP, exam already improved, continue IV antibiotics, discussed with patient will need interval cholecystectomy History of Present Illness Consult details Consult date: 05/04/23 Reason for consult: abdominal pain Requesting physician: Siddharth Novak DO Narrative: The patient is a 67-year-old female that presented to the emergency department complaining of severe upper abdominal pain. The patient reports the pain has been ongoing for the last few days, however worsened acutely yesterday. Patient reports associated bloating, nausea, poor appetite. The patient reports intermittent symptoms in the past, however nothing this severe or long-lasting. Workup in the emergency department, including imaging, is significant for acute cholecystitis, biliary pancreatitis. The patient reports a strong family history of biliary disease. Review of Systems Review of Systems: All systems reviewed & are unremarkable except as noted in HPI and below PMFSH Past Medical History Medical History Depression Elevated liver enzymes Glaucoma HLD (hyperlipidemia) Mitral valve prolapse Osteoarthritis Upper abdominal pain Surgical History Surgical History No pertinent past surgical history Family History Family History Mother Cholecystitis Sibling Cholecystitis Postoperative acute deep vein thrombosis (DVT) of lower extremity Social History Social History Smoking status: Never smoker Alcohol intake: never Substance use: never Lack of Transportation: No Lack of Food: Never True Current Housing: I Have Housing Concerned About Future Housing: No Difficulty Paying Gas/Electric Bills: No Difficulty Paying for Meds: No Currently Unemployed: YES Education: High School Diploma/GED Difficulty w/ Childcare or Family Care: No Living arrangements: with family Spiritual care concerns: No Meds Home Medications and Allergies Home Medications Medication Instructions Recorded Confirmed Type All Day Calcium 600 mg PO DAILY 05/03/23 05/03/23 History [place] 3 Fish Oil 1,000 mg PO DAILY 05/03/23 05/03/23 History One-A-Day 50 Plus 1 tablet PO DAILY 05/03/23 05/03/23 History Retaine MGD (PF) 1 drp EACH EYE QID 05/03/23 05/03/23 History atorvastatin 10 mg tablet 10 mg PO DAILY 05/03/23 05/04/23 History brimonidine 0.2 %-timolol 0.5 % 2 drp EACH EYE DAILY 05/03/23 05/03/23 History eye drops (Combigan) cyclosporine 0.05 % eye drops in a 1 drp EACH EYE BID 05/03/23 05/04/23 History dropperette (Restasis) doxycycline monohydrate 100 mg 100 mg PO DAILY 05/03/23 05/03/23 History tablet levothyroxine 75 mcg tablet 75 mcg PO DAILY 05/03/23 05/03/23 History meloxicam 15 mg tablet 15 mg PO DAILY 05/03/23 05/03/23 History prednisolone acetate 1 % eye 1 drp EACH EYE QID PRN Eye 05/03/23 05/03/23 History drops,suspension Irritation travoprost 0.004 % eye drops 1 drp EACH EYE HS 05/03/23 05/03/23 History (Travatan Z) Ocuvite Adult 50 Plus 1 tablet BYMOUTH DAILY 05/04/23 05/04/23 History Allergies Allergy/AdvReac Type Severity Reaction Status Date / Time naproxen AdvReac Unknown Nausea and Verified 05/03/23 10:15 Vomiting Vital Signs Vital Signs - 24 hr 05/03/23 14:32 05/03/23 17:06 05/03/23 19:45 Temperature 36.6 C Pulse Rate 80 80 Respiratory Rate 18 20 Blood Pressure 130/76 131/75 Pulse Oximetry 99 100 Oxygen Delivery Room Air 05/03/23 19:48 05/03/23 19:55 05/03/23 19:55 Temperature 36.6 C 36.6 C 36.6 C Pulse Rate 80 76 86 Respiratory Rate 20 20 20 Blood Press
[2023-05-04] MEDS: KETOROLAC 30 MG/ML VIAL (*BKC) IV PUSH (13:58)
[2023-05-04 14:00] VITALS: BP 131/68; PULSE 68; RESP 16; TEMP 36.8; O2SAT 99
[2023-05-04] MEDS: LACTATED RINGERS 1,000 ML 100 ML IV CONT (14:10)
[2023-05-04] MEDS: BRIMONIDINE TARTRATE 0.2% OP SOLN 5 ML BTL 1 DROP EACH EYE (14:22)
[2023-05-04] MEDS: TIMOLOL MALEATE 0.5% OP SOLN 5 ML BOTTLE 1 DROP EACH EYE (14:22)
[2023-05-04] MEDS: cycloSPORINE 0.4 ML OPHTH SOLUTION 1 DROP EACH EYE (14:24)
[2023-05-04] MEDS: LEVOTHYROXINE SODIUM 75 MCG TABLET PO (18:01)
[2023-05-04 21:06] VITALS: BP 120/58; PULSE 73; RESP 18; TEMP 36.4; O2SAT 97
[2023-05-04] MEDS: LATANOPROST 0.005% OP SOLN 2.5 ML BTL 1 DROP EACH EYE (22:13)
[2023-05-05] MEDS: LACTATED RINGERS 1,000 ML 100 ML IV CONT ×2 (02:58→23:42)
[2023-05-05] MEDS: PIPERACILLN/TAZ 3.375GM/NS50ML 3.375 GM/50 ML BAG IVPB ×4 (02:58→20:59)
[2023-05-05] MEDS: ACETAMINOPHEN 325 MG TABLET 650 MG PO (02:59)
[2023-05-05] MEDS: ONDANSETRON INJ 4 MG/2 ML VIAL IV PUSH ×2 (02:59→09:35)
[2023-05-05] MEDS: LEVOTHYROXINE SODIUM 75 MCG TABLET PO (06:12)
[2023-05-05 06:17] VITALS: BP 118/60; PULSE 73; RESP 16; TEMP 36.5; O2SAT 96
[2023-05-05 06:28] LABS: Basophils Percent Auto 0.6 % (0.2-1.2); Eosinophils Absolute Auto 0.2 K/mm3 (0-0.3); Hemoglobin 10.2 g/dL (12.0-15.0); Immature Granulocyte Absolute 0.01 K/mm3 (0.00-0.031); Immature Granulocyte Percent A 0.2 % (0-0.5); Lymphocytes Absolute Auto 1.01 K/mm3 (0.9-3.2); Lymphocytes Percent Auto 19.2 % (18.3-44.2); Mean Corpuscular HGB Conc 32.9 g/dl (32-36); Mean Corpuscular Hemoglobin 31.6 pg (26-34); Mean Platelet Volume 8.9 fl (7.4-10.4); Monocytes Absolute Auto 0.5 K/mm3 (0.1-0.6); Monocytes Percent Auto 9.1 % (2.6-8.5); Neutrophils Absolute Auto 3.6 K/mm3 (1.3-6.7); Neutrophils Percent Auto 67.9 % (45.5-73.1); Platelet Count Result 169 k/mm3 (150-375); Red Blood Count 3.23 M/mm3 (4.2-5.4); Red Cell Distribution Width 11.9 % (11.5-14.5); White Blood Count 5.3 K/mm3 (4.5-10.0)
[2023-05-05 06:38] LABS: Alanine Aminotransferase 222 U/L (6-35); Albumin Level 3.4 g/dL (3.5-5.1); Alkaline Phosphatase 91 U/L (38-126); Anion Gap 10 mmol/L (8-16); Aspartate Amino Transferase 143 U/L (14-36); Bilirubin,Total 0.6 mg/dL (0.2-1.3); Blood Urea Nitrogen 18 mg/dL (7-17); Calcium 8.2 mg/dL (8.4-10.2); Carbon Dioxide 24 mmol/L (22-30); Chloride 102 mmol/L (98-107); Estimated CRCL calculation 59 ml/min; Estimated Glomerular Filt Rate > 60; Glucose 65 mg/dL (65-110); Lipase 934 U/L (23-300); Potassium 3.6 mmol/L (3.4-5.0); Sodium 136 mmol/L (137-145)
[2023-05-05] MEDS: TIMOLOL MALEATE 0.5% OP SOLN 5 ML BOTTLE 1 DROP EACH EYE ×2 (09:42→17:29)
[2023-05-05] MEDS: BRIMONIDINE TARTRATE 0.2% OP SOLN 5 ML BTL 1 DROP EACH EYE ×2 (09:42→17:29)
[2023-05-05] MEDS: cycloSPORINE 0.4 ML OPHTH SOLUTION 1 DROP EACH EYE ×2 (09:58→17:45)
--- NOTE | 2023-05-05 10:00 | PM.PNGS ---
Progress Note: A&P Assessment and Plan (1) Acute gallstone pancreatitis: Code(s): K85.10 - Biliary acute pancreatitis without necrosis or infection Status: Acute Assessment and Plan: labs and exam improving, MRCP reviewed, plan for interval cholecystectomy in am, clears today Subjective Subjective Date/Time Seen: 05/05/23 10:00 Interval history: feels ok, still c/o upper abd pressure/bloating, nausea Review of Systems Review of Systems: All systems reviewed & are unremarkable except as noted in HPI and below Exam Const: General: cooperative, no acute distress and uncomfortable Resp: Auscultation: clear to auscultation bilaterally Cardio: Rate: regular rate Rhythm: regular rhythm GI: Inspection: normal to inspection and distended GI Palp: Yes abdominal tenderness, Yes Soft to palpation, Yes Tenderness to palpation present (GI), No Guarding due to palpation present (GI) and No Rigid due to palpation Objective Data Vital Signs Vital Signs: Vital Signs - 24 hr 05/04/23 14:00 05/04/23 19:44 05/04/23 21:06 Temperature 36.8 C 36.4 C Pulse Rate 68 73 Respiratory Rate 16 18 Blood Pressure 131/68 120/58 L Pulse Oximetry 99 97 Oxygen Delivery Room Air 05/05/23 06:17 Temperature 36.5 C Pulse Rate 73 Respiratory Rate 16 Blood Pressure 118/60 Pulse Oximetry 96 Oxygen Delivery Intake/Output Intake/Output: Intake & Output 05/02/23 05/03/23 05/04/23 05/05/23 23:59 23:59 23:59 23:59 Intake Total 50 1150 1050 Output Total 4 Balance 50 1146 1050 Meds/Results Medications: Active Medications Generic Name Dose Route Start Last Admin Trade Name Freq PRN Reason Stop Dose Admin Acetaminophen 650 mg 05/03/23 13:55 05/05/23 02:59 Acetaminophen 325 Mg Tablet PO 650 mg Q4H PRN Administration Mild Pain (1-3) or Fever Hydrocodone Bitart/Acetaminophen 1 tab 05/03/23 13:55 05/03/23 22:56 Hydrocodone/Acetaminophen (*Crx) 5-325 Mg Tablet PO 1 tab Q4H PRN Administration Moderate Pain (4-6) Brimonidine Tartrate 1 drop 05/04/23 09:00 05/05/23 09:42 Brimonidine Tartrate 0.2% Op Soln 5 Ml Btl EACH EYE 1 drop BID ALEX Administration Cyclosporine 1 drop 05/04/23 09:00 05/05/23 09:58 Cyclosporine 0.4 Ml Ophth Solution EACH EYE 1 drop BID ALEX Administration Lactated Ringer's 1,000 mls @ 100 mls/hr 05/03/23 13:55 05/05/23 02:58 Lr - Lactated Ringers Iv IV CONT 100 mls/hr .Q10H ALEX Administration Piperacillin/Tazobactam/Dextrose 3.375 gm in 50 mls @ 100 mls/hr 05/04/23 09:00 05/05/23 09:43 Zosyn 3.375 Gm/Ns 50 Ml IVPB 100 mls/hr Q6H ALEX Administration Ketorolac Tromethamine 15 mg 05/05/23 09:23 Ketorolac 15 Mg/Ml Vial (*Bkc) IV PUSH Q6H PRN Headache Latanoprost 1 drop 05/04/23 21:00 05/04/23 22:13 Latanoprost 0.005% Op Soln 2.5 Ml Btl EACH EYE 1 drop HS ALEX Administration Levothyroxine Sodium 75 mcg 05/04/23 06:00 05/05/23 06:12 Levothyroxine Sodium 75 Mcg Tablet PO 75 mcg DAILY@0600 ALEX Administration Morphine Sulfate 2 mg 05/03/23 13:55 05/04/23 11:05 Morphine Sulfate (*Crx) 2 Mg/Ml Inj IV PUSH 2 mg Q4H PRN Administration Pain Rated 7-10 Naloxone HCl 0.1 mg 05/03/23 13:55 Naloxone Hcl 0.4 Mg/Ml Vial IV PUSH Q2M PRN Opiate Reversal Retaine Mgd (Pf) Eye 1 drop 05/04/23 13:00 05/04/23 22:14 Drops 1 Drop Each EACH EYE 06/03/23 12:59 1 drop Eye Qid Home Med QID ALEX Administration Ondansetron HCl 4 mg 05/03/23 13:55 05/05/23 09:35 Ondansetron Inj 4 Mg/2 Ml Vial IV PUSH 4 mg Q6H PRN Administration Nausea And Vomiting Prednisolone Acetate 1 drop 05/04/23 10:55 Prednisolone Acetate 1% Ophth 5 Ml EACH EYE QID PRN Eye Irritation Timolol Maleate 1 drop 05/04/23 09:00 05/05/23 09:42 Timolol Maleate 0.5% Op Soln 5 Ml Bottle EACH EYE 1 drop BID ALEX Administration Radiology Results: ITS
--- NOTE | 2023-05-05 10:07 | WPDGIPROGNO ---
Progress Note: A&P Assessment and Plan (1) Acute gallstone pancreatitis: Code(s): K85.10 - Biliary acute pancreatitis without necrosis or infection Status: Acute Assessment and Plan: normal bile duct without stones or stricture- no need of ercp mrcp reviewed, c/w cholecystitis surgery is planning lap kris soon (2) Elevated liver enzymes: Code(s): R74.8 - Abnormal levels of other serum enzymes Status: Acute Assessment and Plan: normal bili slowly trending down from cholecystitis (3) Upper abdominal pain: Code(s): R10.10 - Upper abdominal pain, unspecified Status: Acute (4) Nausea & vomiting: Code(s): R11.2 - Nausea with vomiting, unspecified Status: Acute Assessment and Plan: still symptomatic npo Subjective Date/time seen: 05/05/23 10:08 Interval history: earlier has headache that improved, still with nausea and some abdominal discomfort Review of Systems Review of Systems: All systems reviewed & are unremarkable except as noted in HPI and below Exam Const: General: cooperative, no acute distress and uncomfortable HENMT: Face/Nose/Sinus: Normal nares present Eyes: Sclera: sclerae normal Neck: Neck: supple Resp: Auscultation: clear to auscultation bilaterally Cardio: Rate: regular rate Rhythm: regular rhythm GI: Inspection: normal to inspection and distended GI Palp: Yes abdominal tenderness, Yes Soft to palpation, Yes Tenderness to palpation present (GI), No Guarding due to palpation present (GI) and No Rigid due to palpation Skin: General skin exam: normal color Neuro: Speech: normal speech Motor exam (neuro): 5/5 motor strength present throughout Extrem: General: normal to inspection Objective Data Vital Signs Vital Signs: Vital Signs - 24 hr 05/04/23 14:00 05/04/23 19:44 05/04/23 21:06 Temperature 98.3 F 97.6 F Pulse Rate 68 73 Respiratory Rate 16 18 Blood Pressure 131/68 120/58 L Pulse Oximetry 99 97 Oxygen Delivery Room Air 05/05/23 06:17 Temperature 97.7 F Pulse Rate 73 Respiratory Rate 16 Blood Pressure 118/60 Pulse Oximetry 96 Oxygen Delivery Intake/Output Intake/Output: Intake & Output 05/02/23 05/03/23 05/04/23 05/05/23 23:59 23:59 23:59 23:59 Intake Total 50 1150 1050 Output Total 4 Balance 50 1146 1050 Meds/Results Medications: Active Medications Generic Name Dose Route Start Last Admin Trade Name [place] PRN Reason Stop Dose Admin Acetaminophen 650 mg 05/03/23 13:55 05/05/23 02:59 Acetaminophen 325 Mg Tablet PO 650 mg Q4H PRN Administration Mild Pain (1-3) or Fever Hydrocodone Bitart/Acetaminophen 1 tab 05/03/23 13:55 05/03/23 22:56 Hydrocodone/Acetaminophen (*Crx) 5-325 Mg Tablet PO 1 tab Q4H PRN Administration Moderate Pain (4-6) Brimonidine Tartrate 1 drop 05/04/23 09:00 05/05/23 09:42 Brimonidine Tartrate 0.2% Op Soln 5 Ml Btl EACH EYE 1 drop BID ALEX Administration Cyclosporine 1 drop 05/04/23 09:00 05/05/23 09:58 Cyclosporine 0.4 Ml Ophth Solution EACH EYE 1 drop BID ALEX Administration Lactated Ringer's 1,000 mls @ 100 mls/hr 05/03/23 13:55 05/05/23 02:58 Lr - Lactated Ringers Iv IV CONT 100 mls/hr .Q10H ALEX Administration Piperacillin/Tazobactam/Dextrose 3.375 gm in 50 mls @ 100 mls/hr 05/04/23 09:00 05/05/23 09:43 Zosyn 3.375 Gm/Ns 50 Ml IVPB 100 mls/hr Q6H ALEX Administration Ketorolac Tromethamine 15 mg 05/05/23 09:23 Ketorolac 15 Mg/Ml Vial (*Bkc) IV PUSH Q6H PRN Headache Latanoprost 1 drop 05/04/23 21:00 05/04/23 22:13 Latanoprost 0.005% Op Soln 2.5 Ml Btl EACH EYE 1 drop HS ALEX Administration Levothyroxine Sodium 75 mcg 05/04/23 06:00 05/05/23 06:12 Levothyroxine Sodium 75 Mcg Tablet PO 75 mcg DAILY@0600 ALEX Administration Morphine Sulfate 2 mg 05/03/23 13:55 05/04/23 11:05 Morphine Sulfate (*Crx) 2 Mg/Ml Inj IV PUSH 2 m
--- NOTE | 2023-05-05 13:01 | PM.IMPN ---
Progress Note: A&P Assessment and Plan (1) Acute gallstone pancreatitis: Code(s): K85.10 - Biliary acute pancreatitis without necrosis or infection Status: Acute Assessment and Plan: Third episode of abdominal pain likely recurrent cholecystitis. Now with acute cholecystitis now with elevated LFTs and pancreatic enzymes Abdominal CT scan and ultrasound consistent with acute cholecystitis AST and ALT on admission were 613/517 continue to trend Amylase elevated at 1655 and lipase elevated at 14,579; lipase trending down General surgery Dr. Frazier consulted for cholecystectomy GI Dr. Reyes consulted MRCP did not reveal any stones or stricture in the common bile duct. (2) Cholelithiasis with acute cholecystitis: Qualifiers: Biliary obstruction: without biliary obstruction Qualified Code(s): K80.00 - Calculus of gallbladder with acute cholecystitis without obstruction Code(s): K80.00 - Calculus of gallbladder with acute cholecystitis without obstruction Status: Acute Assessment and Plan: Monitor vital signs, I and O's, check stool output, neuro status and patient is a fall risk Monitor serum electrolytes and CBC IV pain management IV fluid resuscitation Zosyn 3.375 mg every 6 hours Consult general surgery and GI for further evaluation, appreciate assistance and recommendation MRCP did not reveal any stones in the common bile duct. Surgery likely tomorrow. Plan chronic conditions -osteoarthritis -history of depression -history of hyperlipidemia -history of mitral valve prolapse -history of hypothyroidism continue Synthroid Subjective Date/time seen: 05/05/23 13:01 Interval history: Patient continues to have nausea and headache. MRCP did not reveal any common bile duct stones or strictures thus ERCP was not necessary. She is tentatively planned to have surgery tomorrow. She has not had any emesis, diarrhea, shortness of breath, chest pain, lightheadedness and dizziness. Her abdominal pain is manageable but there is some tenderness to epigastric and right upper quadrant palpation. Exam Narrative: GENERAL: uncomfortable, no acute distress HENMT: moist mucous membranes EYES: EOM intact b/l NECK: no lymphadenopathy RESPIRATORY: clear to auscultation CARDIO: RRR GI: soft, mild right upper quadrant tenderness to palpation, bowel sounds present SKIN: no rashes EXTREMITIES: no edema, redness or tenderness Objective Data Vital Signs Vital Signs: Vital Signs - 24 hr 05/04/23 14:00 05/04/23 19:44 05/04/23 21:06 Temperature 98.3 F 97.6 F Pulse Rate 68 73 Respiratory Rate 16 18 Blood Pressure 131/68 120/58 L Pulse Oximetry 99 97 Oxygen Delivery Room Air 05/05/23 06:17 Temperature 97.7 F Pulse Rate 73 Respiratory Rate 16 Blood Pressure 118/60 Pulse Oximetry 96 Oxygen Delivery Intake/Output Intake/Output: Intake & Output 05/02/23 05/03/23 05/04/23 05/05/23 23:59 23:59 23:59 23:59 Intake Total 50 1150 1050 Output Total 4 Balance 50 1146 1050 Meds/Results Medications: Active Medications Generic Name Dose Route Start Last Admin Trade Name Freq PRN Reason Stop Dose Admin Acetaminophen 650 mg 05/03/23 13:55 05/05/23 02:59 Acetaminophen 325 Mg Tablet PO 650 mg Q4H PRN Administration Mild Pain (1-3) or Fever Hydrocodone Bitart/Acetaminophen 1 tab 05/03/23 13:55 05/03/23 22:56 Hydrocodone/Acetaminophen (*Crx) 5-325 Mg Tablet PO 1 tab Q4H PRN Administration Moderate Pain (4-6) Brimonidine Tartrate 1 drop 05/04/23 09:00 05/05/23 09:42 Brimonidine Tartrate 0.2% Op Soln 5 Ml Btl EACH EYE 1 drop BID ALEX Administration Cyclosporine 1 drop 05/04/23 09:00 05/05/23 09:58 Cyclosporine 0.4 Ml Ophth Solution EACH EYE 1 drop BID ALEX Administration Lactated Ringer's 1,000 mls @ 100 mls/hr 05/03/23 13:55 05/05/23 02:58 Lr - Lactated Ringers
[2023-05-05 14:00] VITALS: BP 116/58; PULSE 76; RESP 18; TEMP 36.6; O2SAT 98
[2023-05-05] MEDS: LATANOPROST 0.005% OP SOLN 2.5 ML BTL 1 DROP EACH EYE (20:59)
[2023-05-05 21:59] VITALS: BP 111/90; PULSE 77; RESP 20; TEMP 36.3; O2SAT 100
[2023-05-05] MEDS: KETOROLAC 15 MG/ML VIAL (*BKC) IV PUSH (22:49)
[2023-05-05] MEDS: HYDROcodone/acetaminophen (*CRX) 5-325 MG TABLET 1 TAB PO (23:43)
[2023-05-06] VITALS (14 sets, daily range): BP systolic 118–160; BP diastolic 48–92; PULSE 62–95; RESP 12–18; TEMP 36.3–37.1; O2SAT 92–100
[2023-05-06] MEDS: PIPERACILLN/TAZ 3.375GM/NS50ML 3.375 GM/50 ML BAG IVPB (03:50)
[2023-05-06] MEDS: ONDANSETRON INJ 4 MG/2 ML VIAL IV PUSH ×3 (04:09→11:17)
[2023-05-06] MEDS: KETOROLAC 15 MG/ML VIAL (*BKC) IV PUSH ×2 (04:50→11:12)
[2023-05-06 05:50] LABS: Hemoglobin 9.9 g/dL (12.0-15.0); Mean Corpuscular Hemoglobin 31.3 pg (26-34); Mean Corpuscular Volume 94.9 fl (80-100); Mean Platelet Volume 9.1 fl (7.4-10.4); Platelet Count Result 171 k/mm3 (150-375); Red Blood Count 3.16 M/mm3 (4.2-5.4); Red Cell Distribution Width 12.1 % (11.5-14.5); White Blood Count 5.7 K/mm3 (4.5-10.0)
[2023-05-06 06:02] LABS: Alanine Aminotransferase 160 U/L (6-35); Albumin Level 3.2 g/dL (3.5-5.1); Alkaline Phosphatase 85 U/L (38-126); Anion Gap 4 mmol/L (8-16); Aspartate Amino Transferase 84 U/L (14-36); Bilirubin,Total 0.5 mg/dL (0.2-1.3); Blood Urea Nitrogen 11 mg/dL (7-17); Carbon Dioxide 31 mmol/L (22-30); Chloride 103 mmol/L (98-107); Estimated CRCL calculation 52 ml/min; Estimated Glomerular Filt Rate > 60; Glucose 110 mg/dL (65-110); Potassium 3.5 mmol/L (3.4-5.0); Sodium 138 mmol/L (137-145)
--- NOTE | 2023-05-06 07:10 | WPDHPUPDATE1 ---
History and Physical Update Update Date/Time: 05/06/23 07:10 History and Physical has been reviewed, including an updated exam of the patient. There are NO changes in the patient's condition. Risks, benefits, and alternatives have been discussed and questions answered. Patient agrees to proceed with procedure.
--- NOTE | 2023-05-06 07:36 | WPDANESEPPF ---
Anes - Initial Pre Proc Eval Procedure: Operation Date: 05/06/23 08:00 Proposed Procedures p Laparoscopic Cholecystectomy - Sylvie Frazier MD Date/Time: 05/06/23 07:36 Surgeon: Simeon Novak DO Pre Op Diagnosis: Cholelithiasis w Acute Cholecystitis Patient Data Age: 67 Gender: F Height: 1.7 m Weight: 72.7 kg Last Vital Signs Temp 36.3 C L 05/06/23 05:26 Pulse 81 05/06/23 05:26 Resp 18 05/06/23 05:26 BP 124/48 L 05/06/23 05:26 Pulse Ox 99 05/06/23 05:26 O2 Del Method Room Air 05/05/23 19:25 Allergies Allergy/AdvReac Type Severity Reaction Status Date / Time naproxen AdvReac Unknown Nausea and Verified 05/03/23 10:15 Vomiting Anesthetics - Amide Type - AdvReac Vomiting Verified 05/05/23 18:27 Select A Anesthetics - Heena Type- AdvReac Vomiting Verified 05/05/23 18:27 Parabens Home Medications Medication Instructions Recorded Confirmed Type All Day Calcium 600 mg PO DAILY 05/03/23 05/03/23 History [place] 3 Fish Oil 1,000 mg PO DAILY 05/03/23 05/03/23 History One-A-Day 50 Plus 1 tablet PO DAILY 05/03/23 05/03/23 History Retaine MGD (PF) 1 drp EACH EYE QID 05/03/23 05/03/23 History atorvastatin 10 mg tablet 10 mg PO DAILY 05/03/23 05/04/23 History brimonidine 0.2 %-timolol 0.5 % 2 drp EACH EYE DAILY 05/03/23 05/03/23 History eye drops (Combigan) cyclosporine 0.05 % eye drops in a 1 drp EACH EYE BID 05/03/23 05/04/23 History dropperette (Restasis) doxycycline monohydrate 100 mg 100 mg PO DAILY 05/03/23 05/03/23 History tablet levothyroxine 75 mcg tablet 75 mcg PO DAILY 05/03/23 05/03/23 History meloxicam 15 mg tablet 15 mg PO DAILY 05/03/23 05/03/23 History prednisolone acetate 1 % eye 1 drp EACH EYE QID PRN Eye 05/03/23 05/03/23 History drops,suspension Irritation travoprost 0.004 % eye drops 1 drp EACH EYE HS 05/03/23 05/03/23 History (Travatan Z) Ocuvite Adult 50 Plus 1 tablet BYMOUTH DAILY 05/04/23 05/04/23 History Laboratory Tests 05/06/23 05:25 WBC 5.7 K/mm3 (4.5-10.0) RBC 3.16 L M/mm3 (4.2-5.4) Hgb 9.9 L g/dL (12.0-15.0) Hct 30.0 L % (37.0-47.0) MCV 94.9 fl (80-100) MCH 31.3 pg (26-34) MCHC 33.0 g/dl (32-36) RDW 12.1 % (11.5-14.5) Plt Count 171 k/mm3 (150-375) MPV 9.1 fl (7.4-10.4) Sodium 138 mmol/L (137-145) Potassium 3.5 mmol/L (3.4-5.0) Chloride 103 mmol/L (98-107) Carbon Dioxide 31 H mmol/L (22-30) Anion Gap 4 L mmol/L (8-16) BUN 11 D mg/dL (7-17) Creatinine 0.90 mg/dL (0.7-1.0) Estim Creat Clear Calc 52 ml/min Estimated GFR > 60 (59 - ) Glucose 110 mg/dL (65-110) Calcium 8.0 L mg/dL (8.4-10.2) Total Bilirubin 0.5 mg/dL (0.2-1.3) AST 84 H U/L (14-36) ALT 160 H U/L (6-35) Alkaline Phosphatase 85 U/L (38-126) Total Protein 6.0 L g/dL (6.3-8.2) Albumin 3.2 L g/dL (3.5-5.1) Patient hx anesthesia problems: none Family hx anesthesia problems: none Results Review: All pre-operative results and documents have been reviewed as part of the pre-operative evaluation. [facility] Past Medical History Medical History Depression Elevated liver enzymes Glaucoma HLD (hyperlipidemia) Mitral valve prolapse Nausea & vomiting Osteoarthritis Upper abdominal pain Surgical History Surgical History (Updated 05/06/23 @ 07:37 by Ronn Cisneros MD) H/O breast augmentation History of section No pertinent past surgical history Family History Family History Mother Cholecystitis Sibling Cholecystitis Postoperative acute deep vein thrombosis (DVT) of lower extremity Social History Social History Smoking status: Never smoker Alcohol intake: never Substance use: never Lack of Transportation:
[2023-05-06] MEDS: LACTATED RINGERS 1,000 ML 30 ML IV CONT ×2 (07:40→09:35)
[2023-05-06] MEDS: BUPIVACAINE/EPINEPHRINE 0.25% 50 ML VIAL 30 ML INFILTRATE (08:18)
--- NOTE | 2023-05-06 08:35 | W.PM.PROC2 ---
Procedure Note - Detailed Date of Procedure 05/06/23 Pre-op Diagnosis acute cholecystitis, biliary pancreatitis Post-op Diagnosis Same Procedure Performed Laparoscopic cholecystectomy Surgeon Sylvie Frazier MD Anesthesia General Indications 67-year-old female presented to the hospital complaining of right upper quadrant abdominal pain associated with nausea and vomiting. Workup including imaging significant for biliary pancreatitis, acute cholecystitis, cholelithiasis. Findings acute cholecystitis with cholelithiasis Description of Procedure The patient was taken to the operating room placed in the supine position. After adequate induction of general anesthesia, the patient was prepped and draped in normal sterile fashion. A time-out was then performed to verify the patient's identity as well as the procedure being performed. I then made a 5 mm incision in the infraumbilical region. Through this, a Veress needle was placed into the peritoneal cavity and CO2 gas was then insufflated. After adequate pneumoperitoneum was achieved, the Veress needle was removed and a 5 mm optiview trocar was placed through this incision under direct visualization. I then placed the laparoscope through this trocar site and under direct visualization placed a further 12 mm subxiphoid port as well as 2 additional 5 mm ports in the right upper abdomen. The gallbladder was then identified and was noted to be inflamed, distended, and full of gallstones. I was able to place a grasper at the dome of the gallbladder and this was retracted anterior and cephalad up over the liver. A 2nd retractor was then placed at the infundibulum and retracted laterally, this allowed visualization of the triangle of Calot. I then was able to visualize the cystic duct in its entirety from its proximal insertion into the gallbladder, to its distal junction with the common hepatic/common bile duct junction. At this point, I carefully skeletonized the proximal cystic duct with the [place] dissector. I then clipped and transected the proximal cystic duct. Next I visualized the cystic artery. Again the artery was skeletonized, clipped, and transected. I then used the Bovie cautery to take down the peritoneal attachments of the gallbladder off the liver bed. This was somewhat difficult given the amount of inflammation in the posterior space. Once the gallbladder specimen was completely detached, an endo-pouch was placed through the 12 mm port site. I then placed the gallbladder specimen into the Endo pouch and removed the endo-pouch from the 12 mm port site. The specimen will now be sent to pathology for further review. I then copiously irrigated the right upper quadrant. Some mild oozing was noted in the liver bed and this was controlled with the bovie cautery. Hemostasis was noted in the liver bed, the clips were noted to be in good position on both the cystic duct stump and the cystic artery stump. No other pathology was noted in the right upper quadrant. I then moved the laparoscope to the subxiphoid port. No iatrogenic injury or other pathology was noted in the lower abdomen. I then closed the 12 mm trocar site under direct visualization using the Thony cone and 0 Vicryl suture. At this point, the abdomen was desufflated and all ports removed. All port sites were then closed with 4.O Monocryl subcuticular sutures. Dermabond was placed on each incision. The patient tolerated the procedure well, was extubated in the operating room postoperative and will be transferred to the recovery room in stable condition Estimated Blood Loss 5 Drains No Packing No Pathology Yes Complications No immediate complications Condition Stable Disposition PACU [facility] Billing Surgery - Charge Forward: Surgery Billing
[2023-05-06] MEDS: fentaNYL CITRATE INJ (*CRX) 100 MCG/2 ML VIAL 25 MCG IV PUSH ×4 (09:05→09:34)
[2023-05-06] MEDS: diphenhydrAMINE HCl INJ 50 MG/ML VIAL 6.25 MG IV PUSH ×2 (09:34→09:42)
[2023-05-06] MEDS: BRIMONIDINE TARTRATE 0.2% OP SOLN 5 ML BTL 1 DROP EACH EYE ×2 (11:18→17:58)
[2023-05-06] MEDS: TIMOLOL MALEATE 0.5% OP SOLN 5 ML BOTTLE 1 DROP EACH EYE ×2 (11:18→17:58)
--- NOTE | 2023-05-06 12:38 | PM.IMPN ---
Progress Note: A&P Assessment and Plan (1) Cholelithiasis with acute cholecystitis: Qualifiers: Biliary obstruction: without biliary obstruction Qualified Code(s): K80.00 - Calculus of gallbladder with acute cholecystitis without obstruction Code(s): K80.00 - Calculus of gallbladder with acute cholecystitis without obstruction Status: Acute Assessment and Plan: Monitor vital signs, I and O's, check stool output, neuro status and patient is a fall risk Monitor serum electrolytes and CBC IV pain management IV fluids discontinued. Pt tolerating diet. Consult general surgery and GI for further evaluation, appreciate assistance and recommendation MRCP did not reveal any stones in the common bile duct. Postop day 0 cholecystectomy Advanced diet as tolerated (2) Acute gallstone pancreatitis: Code(s): K85.10 - Biliary acute pancreatitis without necrosis or infection Status: Acute Assessment and Plan: Third episode of abdominal pain likely recurrent cholecystitis. Now with acute cholecystitis now with elevated LFTs and pancreatic enzymes Abdominal CT scan and ultrasound consistent with acute cholecystitis AST and ALT on admission were 613/517 continue to trend Amylase elevated at 1655 and lipase elevated at 14,579; lipase trending down General surgery Dr. Frazier consulted for cholecystectomy GI Dr. Reyes consulted MRCP did not reveal any stones or stricture in the common bile duct. Plan chronic conditions -osteoarthritis -history of depression -history of hyperlipidemia -history of mitral valve prolapse -history of hypothyroidism continue Synthroid Subjective Date/time seen: 05/06/23 12:38 Interval history: Doing well postoperatively. Still having some nausea and right upper quadrant pain. She has been started on clear liquids and will advance as tolerated. Continue to monitor her labs. Exam Narrative: GENERAL: uncomfortable, no acute distress HENMT: moist mucous membranes EYES: EOM intact b/l NECK: no lymphadenopathy RESPIRATORY: clear to auscultation CARDIO: RRR GI: soft, bowel sounds present, postsurgical tenderness, bandages dry and intact SKIN: no rashes EXTREMITIES: no edema, redness or tenderness Objective Data Vital Signs Vital Signs: Vital Signs - 24 hr 05/05/23 14:00 05/05/23 19:25 05/05/23 21:59 Temperature 98 F 97.4 F L Pulse Rate 76 77 Respiratory Rate 18 20 Blood Pressure 116/58 L 111/90 Pulse Oximetry 98 100 Oxygen Delivery Room Air Oxygen Flow Rate 05/06/23 05:26 05/06/23 08:50 05/06/23 09:05 Temperature 97.4 F L 97.8 F Pulse Rate 81 92 62 Respiratory Rate 18 12 12 Blood Pressure 124/48 L 145/76 H 160/79 H Pulse Oximetry 99 97 100 Oxygen Delivery Simple Face Mask Simple Face Mask Oxygen Flow Rate 8 8 05/06/23 09:20 05/06/23 09:35 05/06/23 09:50 Temperature Pulse Rate 65 74 71 Respiratory Rate 12 14 12 Blood Pressure 150/87 H 152/92 H 151/78 H Pulse Oximetry 100 94 95 Oxygen Delivery Simple Face Mask Room Air Room Air Oxygen Flow Rate 8 05/06/23 10:05 05/06/23 10:20 05/06/23 10:35 Temperature 97.9 F 98.1 F Pulse Rate 63 95 67 Respiratory Rate 18 14 14 Blood Pressure 140/82 149/68 H 143/79 H Pulse Oximetry 94 97 92 Oxygen Delivery Room Air Oxygen Flow Rate 05/06/23 11:05 05/06/23 12:05 Temperature 97.6 F 98.8 F Pulse Rate 72 70 Respiratory Rate 14 14 Blood Pressure 144/77 H 126/66 Pulse Oximetry 99 94 Oxygen Delivery Oxygen Flow Rate Intake/Output Intake/Output: Intake & Output 05/03/23 05/04/23 05/05/23 05/06/23 23:59 23:59 23:59 23:59 Intake Total 50 1150 3390 920 Output Total 4 Balance 50 1146 3390 920 Meds/Results Medications: Active Medications Generic Name Dose Route Start Last Admin Trade Name Freq PRN Reason Stop Dose Admin Acetaminophen 650 mg 05/03/23 13:55 05/05/23 02:59 Acetaminophen 325
--- NOTE | 2023-05-06 13:21 | WPDGIPROGNO ---
Progress Note: A&P Assessment and Plan (1) Acute gallstone pancreatitis: Code(s): K85.10 - Biliary acute pancreatitis without necrosis or infection Status: Acute Assessment and Plan: s/p lap kris diet per surgery did not require ercp will follow from [place] (2) Cholelithiasis with acute cholecystitis: Qualifiers: Biliary obstruction: without biliary obstruction Qualified Code(s): K80.00 - Calculus of gallbladder with acute cholecystitis without obstruction Code(s): K80.00 - Calculus of gallbladder with acute cholecystitis without obstruction Status: Acute Assessment and Plan: treated with surgery (3) Upper abdominal pain: Code(s): R10.10 - Upper abdominal pain, unspecified Status: Acute Subjective Date/time seen: 05/06/23 13:21 Interval history: lap kris this morning, expected abdominal discomfort from recent surgery Review of Systems Review of Systems: All systems reviewed & are unremarkable except as noted in HPI and below Exam Const: General: no acute distress Other: pain from recent surgery HENMT: Face/Nose/Sinus: Normal nares present Eyes: General: appearance normal, both eyes and all related structures Neck: Neck: supple Resp: Auscultation: clear to auscultation bilaterally Cardio: Rate: regular rate Rhythm: regular rhythm GI: Inspection: non-distended GI Palp: Yes Tenderness to palpation present (GI) (recent surgery) and No Guarding due to palpation present (GI) Skin: General skin exam: normal color Neuro: Speech: normal speech Motor exam (neuro): 5/5 motor strength present throughout Extrem: General: normal to inspection Psych: Mental Status: mental status grossly normal Objective Data Vital Signs Vital Signs: Vital Signs - 24 hr 05/05/23 14:00 05/05/23 19:25 05/05/23 21:59 Temperature 98 F 97.4 F L Pulse Rate 76 77 Respiratory Rate 18 20 Blood Pressure 116/58 L 111/90 Pulse Oximetry 98 100 Oxygen Delivery Room Air Oxygen Flow Rate 05/06/23 05:26 05/06/23 08:50 05/06/23 09:05 Temperature 97.4 F L 97.8 F Pulse Rate 81 92 62 Respiratory Rate 18 12 12 Blood Pressure 124/48 L 145/76 H 160/79 H Pulse Oximetry 99 97 100 Oxygen Delivery Simple Face Mask Simple Face Mask Oxygen Flow Rate 8 8 05/06/23 09:20 05/06/23 09:35 05/06/23 09:50 Temperature Pulse Rate 65 74 71 Respiratory Rate 12 14 12 Blood Pressure 150/87 H 152/92 H 151/78 H Pulse Oximetry 100 94 95 Oxygen Delivery Simple Face Mask Room Air Room Air Oxygen Flow Rate 8 05/06/23 10:05 05/06/23 10:20 05/06/23 10:35 Temperature 97.9 F 98.1 F Pulse Rate 63 95 67 Respiratory Rate 18 14 14 Blood Pressure 140/82 149/68 H 143/79 H Pulse Oximetry 94 97 92 Oxygen Delivery Room Air Oxygen Flow Rate 05/06/23 11:05 05/06/23 12:05 05/06/23 11:00 Temperature 97.6 F 98.8 F Pulse Rate 72 70 Respiratory Rate 14 14 Blood Pressure 144/77 H 126/66 Pulse Oximetry 99 94 Oxygen Delivery Room Air Oxygen Flow Rate Intake/Output Intake/Output: Intake & Output 05/03/23 05/04/23 05/05/23 05/06/23 23:59 23:59 23:59 23:59 Intake Total 50 1150 3390 1820 Output Total 4 1200 Balance 50 1146 3390 620 Meds/Results Medications: Active Medications Generic Name Dose Route Start Last Admin Trade Name Freq PRN Reason Stop Dose Admin Acetaminophen 650 mg 05/03/23 13:55 05/05/23 02:59 Acetaminophen 325 Mg Tablet PO 650 mg Q4H PRN Administration Mild Pain (1-3) or Fever Hydrocodone Bitart/Acetaminophen 1 tab 05/03/23 13:55 05/05/23 23:43 Hydrocodone/Acetaminophen (*Crx) 5-325 Mg Tablet PO 1 tab Q4H PRN Administration Moderate Pain (4-6) Brimonidine Tartrate 1 drop 05/04/23 09:00 05/06/23 11:18 Brimonidine Tartrate 0.2% Op Soln 5 Ml Btl EACH EYE 1 drop BID ALEX Administration Cyclosporine 1 drop 05/04/23 09:00 05/05/23 17:45 Cyclosporine 0.4 Ml Ophth Solu
[2023-05-06] MEDS: HYDROcodone/acetaminophen (*CRX) 5-325 MG TABLET 1 TAB PO (14:32)
[2023-05-06] MEDS: cycloSPORINE 0.4 ML OPHTH SOLUTION 1 DROP EACH EYE ×2 (14:34→18:08)
[2023-05-06] MEDS: LATANOPROST 0.005% OP SOLN 2.5 ML BTL 1 DROP EACH EYE (20:33)
[2023-05-07] MEDS: HYDROcodone/acetaminophen (*CRX) 5-325 MG TABLET 1 TAB PO ×2 (02:30→12:48)
[2023-05-07 05:19] VITALS: BP 109/51; PULSE 76; RESP 20; TEMP 36.4; O2SAT 97
[2023-05-07 05:50] LABS: Hematocrit 30.2 % (37.0-47.0); Hemoglobin 10.3 g/dL (12.0-15.0); Mean Corpuscular HGB Conc 34.1 g/dl (32-36); Mean Corpuscular Hemoglobin 32.4 pg (26-34); Mean Platelet Volume 9.5 fl (7.4-10.4); Platelet Count Result 193 k/mm3 (150-375); Red Blood Count 3.18 M/mm3 (4.2-5.4); Red Cell Distribution Width 12.6 % (11.5-14.5); White Blood Count 7.4 K/mm3 (4.5-10.0)
[2023-05-07] MEDS: LEVOTHYROXINE SODIUM 75 MCG TABLET PO (06:23)
[2023-05-07 06:29] LABS: Alanine Aminotransferase 135 U/L (6-35); Albumin Level 3.4 g/dL (3.5-5.1); Alkaline Phosphatase 87 U/L (38-126); Anion Gap 4 mmol/L (8-16); Aspartate Amino Transferase 85 U/L (14-36); Bilirubin,Total 0.4 mg/dL (0.2-1.3); Blood Urea Nitrogen 6 mg/dL (7-17); Calcium 8.1 mg/dL (8.4-10.2); Carbon Dioxide 31 mmol/L (22-30); Chloride 102 mmol/L (98-107); Estimated CRCL calculation 66 ml/min; Estimated Glomerular Filt Rate > 60; Glucose 111 mg/dL (65-110); Lipase 134 U/L (23-300); Potassium 3.4 mmol/L (3.4-5.0); Sodium 137 mmol/L (137-145)
[2023-05-07] MEDS: BRIMONIDINE TARTRATE 0.2% OP SOLN 5 ML BTL 1 DROP EACH EYE (10:04)
[2023-05-07] MEDS: TIMOLOL MALEATE 0.5% OP SOLN 5 ML BOTTLE 1 DROP EACH EYE (10:04)
[2023-05-07] MEDS: cycloSPORINE 0.4 ML OPHTH SOLUTION 1 DROP EACH EYE (10:11)
--- NOTE | 2023-05-07 13:30 | PM.DS ---
DS: Admitting Diagnosis Discharge Date 05/07/23 Admitting Diagnosis acute cholecystitis DS: Discharge Diagnosis Discharge Diagnosis (1) Cholelithiasis with acute cholecystitis: Qualifiers: Biliary obstruction: without biliary obstruction Qualified Code(s): K80.00 - Calculus of gallbladder with acute cholecystitis without obstruction Code(s): K80.00 - Calculus of gallbladder with acute cholecystitis without obstruction Status: Acute (2) Acute gallstone pancreatitis: Code(s): K85.10 - Biliary acute pancreatitis without necrosis or infection Status: Acute DS: Summary Hospital Course Hospital Course: This is a 67 year old female with a past medical history of hyperlipidemia, mitral valve prolapse, //osteoarthritis and hypothyroidism that presented to the ED on 05/03/23 with chief complaint of abdominal pain, nausea and vomiting. She had significant elevated LFTs AST 613, ALT 517, amylase 1655, lipase 14,000. CT abdomen and pelvis showing cholelithiasis and mild gallbladder wall thickening consistant with acute cholecystitis. Due to elevated LFTs and lipase GI was consulted. General surgery consulted for acute cholecystectomy. MRCP preformed and did not reveal any stone. Her LFT's trended down. Pt likely had a stone that passed. ERCP was not necessary. Patient underwent acute cholecystectomy on 05/06/23 and tolerated it well. Her diet was advanced as tolerated and she did well postoperatively. Her labs and vital signs are stable and she is medically cleared for discharge. Time Spent with Patient Time attestation: Total time spent providing and/or coordinating discharge services: Exam Narrative: GENERAL: uncomfortable, no acute distress HENMT: moist mucous membranes EYES: EOM intact b/l NECK: no lymphadenopathy RESPIRATORY: clear to auscultation CARDIO: RRR GI: soft, bowel sounds present, postsurgical tenderness, bandages dry and intact SKIN: no rashes EXTREMITIES: no edema, redness or tenderness DS: Data Data Completed and Pending Pending studies at discharge: Pending at discharge 05/06/23 08:11 Surgical [PTH] Routine Labs on day of discharge: Labs from last 24 hours 05/07/23 05:33 WBC 7.4 RBC 3.18 L Hgb 10.3 L Hct 30.2 L MCV 95.0 MCH 32.4 MCHC 34.1 RDW 12.6 Plt Count 193 MPV 9.5 Sodium 137 Potassium 3.4 Chloride 102 Carbon Dioxide 31 H Anion Gap 4 L BUN 6 L D Creatinine 0.70 Estim Creat Clear Calc 66 Estimated GFR > 60 Glucose 111 H Calcium 8.1 L Total Bilirubin 0.4 AST 85 H ALT 135 H Alkaline Phosphatase 87 Total Protein 6.0 L Albumin 3.4 L Lipase 134 Preliminary micro results at discharge 05/03/23 12:44 Blood Culture - Preliminary Blood 05/03/23 12:44 Blood Culture - Preliminary Blood Discharge Plan Discharge Attending physician on discharge: Ismael Ramos Consulting providers: Sylvie Frazier; Andrew Love; Petrona Snow Discharging Clinician: Emily Rodriguez Patient Disposition: Home, Self-Care Activity: may shower Diet: as tolerated Wound Care Instructions: incision open to air Discharge Instructions: DISCHARGE INSTRUCTION SHEET FOR HERNIA, GALLBLADDER AND APPENDIX SURGERIES DR. FRAZIER PATIENT TO TAKE HOME 1. May shower in 24 hours, no soaking in bath x 2weeks. 2. Call office for: Wound increasingly painful or bleeding Vomiting Fever of greater than 101 degrees 3. If no bowel movement for three days, take 1 oz. (30 ml) Milk of Magnesia or MiraLax 17g 1 to 2 times daily. 4. No heavy lifting > 10-15 pounds x 6 weeks for hernia repairs and 2 weeks for laparoscopic cholecystectomy or appendectomy. 5. No driving for 3 days or while taking narcotic pain medications. 6. Ice to surgical site for 48 hours (30 min on, then 30 min off). 7. Up walking 10-30 minutes three times pe
--- NOTE | 2023-05-07 14:50 | WPDANESPN ---
Anes - Prog Note Post-Op Date/Time: 05/07/23 14:50 Cardiovascular status: normal Respiratory status: normal Airway patency: baseline Mental status: baseline Post-Op hydration status: normal Vital Signs: Last Vital Signs Temp 36.4 C 05/07/23 05:19 Pulse 76 05/07/23 05:19 Resp 20 05/07/23 05:19 BP 109/51 L 05/07/23 05:19 Pulse Ox 97 05/07/23 05:19 O2 Del Method Room Air 05/07/23 10:00 O2 Flow Rate 8 05/06/23 09:20 Pain Score (VAS): 4/10 well controlled with norco. patient is ambulatory and states pain is tolerable. I/O: Intake & Output 05/06/23 05/07/23 05/07/23 23:59 07:59 15:59 Intake Total 840 390 120 Output Total 300 800 Balance 540 -410 120 Laboratory Tests 05/07/23 05:33 05/07/23 05:33 05/07/23 05:33 WBC 7.4 RBC 3.18 L Hgb 10.3 L Hct 30.2 L MCV 95.0 MCH 32.4 MCHC 34.1 RDW 12.6 Plt Count 193 MPV 9.5 Sodium 137 Potassium 3.4 Chloride 102 Carbon Dioxide 31 H Anion Gap 4 L BUN 6 L D Creatinine 0.70 Estim Creat Clear Calc 66 Estimated GFR > 60 Glucose 111 H Calcium 8.1 L Total Bilirubin 0.4 AST 85 H ALT 135 H Alkaline Phosphatase 87 Total Protein 6.0 L Albumin 3.4 L Lipase 134 Patient Feedback: Patient satisfied with anesthetic care.
== END 2023-05-07 15:20 | disposition home or self-care (01) | DRG 417 ==
LOC: ANHED 13:27 → ANH2MED 14:16
PROVIDERS: Preventive Medicine Aerospace Medicine; Surgery; Admitting Provider Student in an Organized Health Care Education/Training Program; Emergency Provider Nurse Practitioner; PCP Nurse Practitioner Family; Visit Provider Internal Medicine Critical Care Medicine
PROC: 0FT44ZZ Resection of Gallbladder, Percutaneous Endoscopic Approach (ICD-10-PCS; CPT 47562; principal; 2023-05-06 08:00)
DX: K80.00 Calculus of gallbladder with acute cholecystitis without obstruction (principal); K85.10 Biliary acute pancreatitis without necrosis or infection; I34.1 Nonrheumatic mitral (valve) prolapse; E78.5 Hyperlipidemia, unspecified; M19.90 Unspecified osteoarthritis, unspecified site; H40.9 Unspecified glaucoma; F32.A Depression, unspecified
CPT/HCPCS: 36415; 74177; 74183; 76376; 76705; 80053; 81003; 82150; 83690; 83735; 84443; 85025; 85027; 87040; 88304; 96365; 96375; 96376; 99285; A9270; A9577; G0378; J0330; J0690; J1100; J1200; J1885; J2250; J2270; J2405; J2543; J2704; J3010; J7030; J7120; Q9967

== ENCOUNTER 2023-05-11 10:17 | Emergency (ER) | payer MEDICARE, SELFPAY ==
[2023-05-11] VITALS (11 sets, daily range): BP systolic 129–157; BP diastolic 64–88; PULSE 66–91; RESP 17–18; TEMP 36.2–36.8; O2SAT 97–100
--- NOTE | ~2023-05-11 | US_ITS ---
EXAMINATION: US venous doppler LE RT DATE: 05/11/2023 13:08 INDICATION: post op, calf pain . TECHNIQUE: Grayscale images without and with compression and Doppler images of the right lower extrem ity veins were obtained. COMPARISON: None FINDINGS: The right common femoral vein, profunda (deep) femoral vein, femoral vein, popliteal vein, peroneal v ein, posterior tibial veins, gastrocnemius vein, and greater saphenous vein are patent. IMPRESSION: Patent right lower extremity veins. No evidence of deep venous thrombosis. Reviewed, dictated and finalized at location K.
--- NOTE | ~2023-05-11 | CT_ITS ---
EXAMINATION: CT abdomen pelvis w con DATE: 05/11/2023 12:23 INDICATION: Nausea following recent cholecystectomy TECHNIQUE: Computed tomography (CT) of the abdomen and pelvis was performed with 100 CC Omnipaque 350 intravenous contrast. Automated exposure control and iterative reconstruction technique were employe d. Exam dose: 525.89 mGy-cm total exam DLP. COMPARISON: 05/04/2023 MR/MRCP 05/03/2023 CT abdomen pelvis FINDINGS: The lung bases are clear of infiltrate or consolidation. Status post bilateral augmentation mammoplasty. Normal heart size. No pericardial or pleural effusion. Status post cholecystectomy. There is minimal fat stranding in the gallbladder fossa and duodenal are a and some thickening of the wall of the duodenum. Is mild abnormal perihepatic fat stranding at the hepatic flexure. No abscess collection is identified. No intraperitoneal free air is noted. Normal caliber of the bile ducts and pancreatic duct. There is hepatic steatosis. No hepatic, splenic, pancreatic, and adrenal or renal space-occupying mass lesion is detected. Normal caliber of the abdominal aorta. No intraperitoneal or retroperitoneal or pelvic mass lesion or adenopathy or ascites. The urinary bladder, uterus and adnexal areas are unremarkable. There is diverticulosis throughout the left and right colon. No CT evidence of diverticulitis. Normal appendix. No evidence of appendicitis. No bowel obstruction. Small fat-containing umbilical hernia. Moderately severe degenerative disc disease at L4-5 IMPRESSION: Minimal fat stranding in the right upper quadrant, likely secondary to recent cholecyste ctomy. No abscess or intraperitoneal free air Diverticulosis of left and right colon; no CT evidence of diverticulitis Normal appendix Hepatic steatosis Reviewed, dictated and finalized at Location A. Reviewed, dictated and finalized at location A. IMPRESSION: Minimal fat stranding in the right upper quadrant, likely secondar y to recent cholecystectomy. No abscess or intraperitoneal free air Diverticulosis of left and right colon; no CT evidence of diverticulitis Normal appendix Hepatic steatosis
[2023-05-11 10:37] LABS: Basophils Percent Auto 0.6 % (0.2-1.2); Eosinophils Absolute Auto 0.2 K/mm3 (0-0.3); Hematocrit 36.1 % (37.0-47.0); Immature Granulocyte Absolute 0.01 K/mm3 (0.00-0.031); Immature Granulocyte Percent A 0.1 % (0-0.5); Lymphocytes Absolute Auto 1.36 K/mm3 (0.9-3.2); Lymphocytes Percent Auto 19.2 % (18.3-44.2); Mean Corpuscular HGB Conc 33.2 g/dl (32-36); Mean Corpuscular Hemoglobin 31.2 pg (26-34); Mean Corpuscular Volume 93.8 fl (80-100); Monocytes Absolute Auto 0.6 K/mm3 (0.1-0.6); Monocytes Percent Auto 7.8 % (2.6-8.5); Neutrophils Absolute Auto 4.9 K/mm3 (1.3-6.7); Neutrophils Percent Auto 69.3 % (45.5-73.1); Platelet Count Result 318 k/mm3 (150-375); Red Blood Count 3.85 M/mm3 (4.2-5.4); Red Cell Distribution Width 12.4 % (11.5-14.5); White Blood Count 7.1 K/mm3 (4.5-10.0)
[2023-05-11 10:49] LABS: Alanine Aminotransferase 60 U/L (6-35); Albumin Level 3.9 g/dL (3.5-5.1); Alkaline Phosphatase 106 U/L (38-126); Anion Gap 10 mmol/L (8-16); Aspartate Amino Transferase 37 U/L (14-36); Bilirubin,Total 0.6 mg/dL (0.2-1.3); Blood Urea Nitrogen 14 mg/dL (7-17); Calcium 9.2 mg/dL (8.4-10.2); Carbon Dioxide 28 mmol/L (22-30); Chloride 98 mmol/L (98-107); Estimated CRCL calculation 59 ml/min; Estimated Glomerular Filt Rate > 60; Glucose 124 mg/dL (65-110); Lipase 91 U/L (23-300); Potassium 3.6 mmol/L (3.4-5.0); Sodium 136 mmol/L (137-145)
--- NOTE | 2023-05-11 11:20 | ED.NAVMDI ---
HPI - Nausea/Vomiting/Diarrhea General Chief complaint: Nausea/Vomiting/Diarrhea Stated complaint: vomiting, post-op Time Seen by Provider: 05/11/23 11:00 History of Present Illness HPI Narrative: 67-year-old female with a history of hyperlipidemia, depression, mitral valve prolapse, osteoarthritis and hypothyroidism reports for evaluation for nausea and vomiting. Patient was admitted from this ER on 05/03 for acute gallstone pancreatitis. She had an MRCP performed which did not reveal a stone. Her LFTs trended down on admission, she likely passed a stone. She had a cholecystectomy performed by Dr. Frazier on 05/06, tolerated well. She was discharged home on 05/07. Patient states she was feeling nauseous at discharge, however it has exponentially worsened in the past few days. She states that she has not eaten anything since yesterday at 11 AM because she cannot keep anything down. She reports 2 episodes of emesis last night. She has been taking her Zofran without improvement. Her last dose this morning was at 7:45 AM along with a Wilder at 1030. She is not having any abdominal pain, but is reporting generalized abdominal soreness which she is attributing to vomiting. She is also reporting right calf pain for the past few days. She does report a history of a DVT in 1969. She is not currently anticoagulated. She denies fever, bodies or chills, chest pain or shortness of breath, dysuria or hematuria, lower extremity edema. Last bowel movement yesterday was normal. Related Data Home Medications Medication Instructions Recorded Confirmed All Day Calcium 600 mg PO DAILY 05/03/23 05/03/23 [place] 3 Fish Oil 1,000 mg PO DAILY 05/03/23 05/03/23 One-A-Day 50 Plus 1 tablet PO DAILY 05/03/23 05/03/23 Retaine MGD (PF) 1 drp EACH EYE QID 05/03/23 05/03/23 atorvastatin 10 mg tablet 10 mg PO DAILY 05/03/23 05/04/23 brimonidine 0.2 %-timolol 0.5 % 2 drp EACH EYE DAILY 05/03/23 05/03/23 eye drops (Combigan) cyclosporine 0.05 % eye drops in a 1 drp EACH EYE BID 05/03/23 05/04/23 dropperette (Restasis) doxycycline monohydrate 100 mg 100 mg PO DAILY 05/03/23 05/03/23 tablet levothyroxine 75 mcg tablet 75 mcg PO DAILY 05/03/23 05/03/23 meloxicam 15 mg tablet 15 mg PO DAILY 05/03/23 05/03/23 prednisolone acetate 1 % eye 1 drp EACH EYE QID PRN Eye 05/03/23 05/03/23 drops,suspension Irritation travoprost 0.004 % eye drops 1 drp EACH EYE HS 05/03/23 05/03/23 (Travatan Z) Ocuvite Adult 50 Plus 1 tablet BYMOUTH DAILY 05/04/23 05/04/23 Allergies Allergy/AdvReac Type Severity Reaction Status Date / Time naproxen AdvReac Unknown Nausea and Verified 05/03/23 10:15 Vomiting Anesthetics - Amide Type - AdvReac Vomiting Verified 05/05/23 18:27 Select A Anesthetics - Heena Type- AdvReac Vomiting Verified 05/05/23 18:27 Parabens Review of Systems Review of Systems: CONSTITUTIONAL: Denies fever, chills EYES: Denies visual changes, redness, or discharge. ENT: Denies rhinorrhea, congestion, sore throat, or otalgia. CARDIOVASCULAR: Denies chest pain, palpitations, or edema. RESPIRATORY: Denies cough or dyspnea. GASTROINTESTINAL: See HPI GENITOURINARY: Denies dysuria or hematuria. SKIN: Denies rash or itching. MUSCULOSKELETAL: See HPI NEUROLOGIC: Denies headache, numbness, dizziness, or weakness. PSYCHIATRIC: Denies anxiety or depression. [facility] Past Medical History Medical History Depression Elevated liver enzymes Glaucoma HLD (hyperlipidemia) Mitral valve prolapse Nausea & vomiting Osteoarthritis Upper abdominal pain Surgical History Surgical History H/O breast augmentation History of section No pertinent past surgical history Family History Family History Mother Cholecystitis Sibling Cholecystitis Postoperative acute deep vein thrombosis
[2023-05-11] MEDS: SODIUM CHLORIDE 0.9% IV 1,000 ML 999 ML IV CONT ×2 (11:40→13:50)
[2023-05-11] MEDS: ONDANSETRON INJ 4 MG/2 ML VIAL IV PUSH (11:41)
[2023-05-11 12:21] LABS: Appearance Urine Clear (Clear); Bacteria Urine None Seen /hpf; Bilirubin Urine 2+ (Negative); Blood Urine Negative (Negative); Color Urine Dark Yellow (Yellow); Glucose Urine UA Negative (Negative); Ketones Urine Trace mg/dL (Negative); Leukocyte Esterase Ur Negative LEU/UL (Negative); Need Manual Microscopic Reviewed; Nitrate Urine Negative (Negative); Protein Urine 1+ mg/dL (Negative); Specific Grav Ur 1.036 (1.001-1.035); Squamous Epithelial Cell Urine Few /hpf (Few); WBC Urine 0-5 /hpf; pH Urine 5.5 (5.0-9.0)
[2023-05-11 12:22] LABS: Add Urine Microscopic? YES
[2023-05-11] MEDS: MORPHINE SULFATE (*CRX) 4 MG/ML INJ IV PUSH (13:49)
[2023-05-11] MEDS: METOCLOPRAMIDE HCL INJ 10 MG/2 ML VIAL IV PUSH (13:50)
--- NOTE | 2023-05-11 15:22 | PC.NURSE ---
Marylou informed that pt c/o nausea.
[2023-05-11] MEDS: diphenhydrAMINE HCl INJ 50 MG/ML VIAL 25 MG IV PUSH (16:29)
--- NOTE | 2023-05-11 18:15 | PC.NURSE ---
Pt tolerated crackers, juice & pop cycle.
--- NOTE | 2023-05-14 13:54 | ECG_ITS ---
Measurements Intervals [place] Rate: 92 P: 26 FL: 139 QRS: 30 QRSD: 85 T: 6 QT: 357 QTc: 443 Interpretive Statements SINUS RHYTHM MINIMAL Q WAVES- HIGH LATERAL LEADS BORDERLINE T WAVE ABNORMALITY- INFERIOR LEADS BORDERLINE ECG COMPARED TO ECG 06/14/2022 08:59:05 NO SIGNIFICANT CHANGES Electronically Signed On 05-14-2023 14:06:54 CDT by Catrachito Bose D.O.
== END 2023-05-11 18:30 | disposition home or self-care (01) ==
PROVIDERS: Emergency Medicine; Emergency Provider Physician Assistant; PCP Nurse Practitioner Family
DX: R11.2 Nausea with vomiting, unspecified (principal); M79.661 Pain in right lower leg; I34.1 Nonrheumatic mitral (valve) prolapse; E78.5 Hyperlipidemia, unspecified; E03.9 Hypothyroidism, unspecified; M19.90 Unspecified osteoarthritis, unspecified site; H40.9 Unspecified glaucoma; Z90.49 Acquired absence of other specified parts of digestive tract; K76.0 Fatty (change of) liver, not elsewhere classified; K57.90 Diverticulosis of intestine, part unspecified, without perforation or abscess without bleeding; R94.31 Abnormal electrocardiogram [ECG] [EKG]
CPT/HCPCS: 36415; 74177; 80053; 81001; 83690; 85025; 93005; 93971; 96361; 96374; 96375; 99284; J1200; J2270; J2405; J2765; J7030; Q9967

== ENCOUNTER 2023-05-17 10:08 | Outpatient (CLI) | payer MEDICARE, SELFPAY ==
--- NOTE | ~2023-05-17 | NM_ITS ---
EXAMINATION: NM hepatobiliary wo pharm DATE: 05/17/2023 11:49 INDICATION: Nausea and vomiting after cholecystectomy. COMPARISON: CT abdomen and pelvis 05/11/2023 TECHNIQUE: 4.7 mCi Tc-99m mebrofenin (Choletec) was administered intravenously. Scintigraphic images of the abdomen were obtained for one hour. FINDINGS: There is normal clearance of radiotracer from the blood pool. There is increased activity i n the liver at the gallbladder fossa, consistent with inflammation. Activity progresses to the bowel. There is no bile leak. IMPRESSION: 1. No bile leak. Reviewed, dictated and finalized at location A. IMPRESSION: 1. No bile leak.
== END 2023-05-17 10:09 | disposition home or self-care (01) ==
PROVIDERS: PCP Nurse Practitioner Family; Visit Provider Surgery
DX: R11.2 Nausea with vomiting, unspecified (principal)
CPT/HCPCS: 78226; A9537

== ENCOUNTER 2023-05-17 12:07 | Inpatient (IN) | payer MEDICARE, SELFPAY ==
[2023-05-17] VITALS (13 sets, daily range): BP systolic 82–155; BP diastolic 52–88; PULSE 87–103; RESP 15–18; TEMP 36.8; O2SAT 98–100; BMI 25.8
[2023-05-17 13:01] LABS: Basophils Percent Auto 0.5 % (0.2-1.2); Eosinophils Absolute Auto 0.1 K/mm3 (0-0.3); Eosinophils Percent Auto 1.1 % (0-4.4); Hematocrit 38.4 % (37.0-47.0); Hemoglobin 12.7 g/dL (12.0-15.0); Immature Granulocyte Absolute 0.03 K/mm3 (0.00-0.031); Immature Granulocyte Percent A 0.4 % (0-0.5); Lymphocytes Absolute Auto 0.93 K/mm3 (0.9-3.2); Lymphocytes Percent Auto 11.7 % (18.3-44.2); Mean Corpuscular HGB Conc 33.1 g/dl (32-36); Mean Corpuscular Hemoglobin 31.1 pg (26-34); Mean Corpuscular Volume 94.1 fl (80-100); Mean Platelet Volume 8.6 fl (7.4-10.4); Monocytes Absolute Auto 0.6 K/mm3 (0.1-0.6); Monocytes Percent Auto 7.4 % (2.6-8.5); Neutrophils Absolute Auto 6.3 K/mm3 (1.3-6.7); Neutrophils Percent Auto 78.9 % (45.5-73.1); Platelet Count Result 431 k/mm3 (150-375); Red Blood Count 4.08 M/mm3 (4.2-5.4); Red Cell Distribution Width 12.1 % (11.5-14.5)
[2023-05-17 13:02] LABS: Alanine Aminotransferase 31 U/L (6-35); Albumin Level 4.5 g/dL (3.5-5.1); Alkaline Phosphatase 121 U/L (38-126); Anion Gap 14 mmol/L (8-16); Aspartate Amino Transferase 38 U/L (14-36); Bilirubin,Total 0.6 mg/dL (0.2-1.3); Blood Urea Nitrogen 14 mg/dL (7-17); Calcium 9.6 mg/dL (8.4-10.2); Carbon Dioxide 28 mmol/L (22-30); Chloride 93 mmol/L (98-107); Estimated CRCL calculation 60 ml/min; Estimated Glomerular Filt Rate > 60; Glucose 99 mg/dL (65-110); Lipase 71 U/L (23-300); Potassium 3.5 mmol/L (3.4-5.0); Sodium 135 mmol/L (137-145)
[2023-05-17 13:10] LABS: Appearance Urine Clear (Clear); Bacteria Urine None Seen /hpf; Bilirubin Urine Negative (Negative); Blood Urine Negative (Negative); Color Urine Yellow (Yellow); Glucose Urine UA Negative (Negative); Ketones Urine 4+ mg/dL (Negative); Leukocyte Esterase Ur Negative LEU/UL (Negative); Mucus Urine Present /lpf; Nitrate Urine Negative (Negative); Protein Urine 1+ mg/dL (Negative); Specific Grav Ur 1.028 (1.001-1.035); Squamous Epithelial Cell Urine Occasional /hpf (Few); WBC Urine 0-5 /hpf; pH Urine 5.5 (5.0-9.0)
[2023-05-17 13:11] LABS: Add Urine Microscopic? YES
--- NOTE | 2023-05-17 14:17 | ED.NAVMDI ---
HPI - Nausea/Vomiting/Diarrhea General Chief complaint: Nausea/Vomiting/Diarrhea <Shital Tillman APRN - Last Filed: 05/17/23 18:24> Stated complaint: nausea <Shital Tillman PATIENT ASSISTANT - Last Filed: 05/17/23 18:24> Time Seen by Provider: 05/17/23 13:50 <Shital Tillman PATIENT ASSISTANT - Last Filed: 05/17/23 18:24> Source: patient <Shital Tillman APRN - Last Filed: 05/17/23 18:24> Mode of arrival: ambulatory <Shital Tillman APRN - Last Filed: 05/17/23 18:24> Limitations: no limitations <Shital Tillman PATIENT ASSISTANT - Last Filed: 05/17/23 18:24> History of Present Illness HPI Narrative: 67-year-old female presents today with continued nausea and vomiting. Patient previously seen here in this ER on May 03 with complaints of abdominal pain and nausea. During the hospital stay patient did have a laparoscopic cholecystectomy done by Dr. Frazier. Patient was discharged on 05 07 states that she continued with nausea but was discharged followed up with Dr. Frazier then was seen here in the emergency department on 05/11 with continued nausea and vomiting. Patient was using Zofran and during that hospital stay prescribed Compazine. Since then patient is still continued with nausea vomiting unable to keep fluids down per patient HIDA scan done today. She was told by the surgeon that she could either go home and wait results or come to the ER. Patient decided to come to the ER. She is tired of being nauseated and vomiting. Appears unwell eyes sunken in and appears tired. Non toxic appearing. Denies any pain <Shital Tillman, PATIENT ASSISTANT - Last Filed: 05/17/23 18:24> Related Data Home medications: Home Medications Medication Instructions Recorded Confirmed All Day Calcium 600 mg PO DAILY 05/03/23 05/03/23 [place] 3 Fish Oil 1,000 mg PO DAILY 05/03/23 05/03/23 One-A-Day 50 Plus 1 tablet PO DAILY 05/03/23 05/03/23 Retaine MGD (PF) 1 drp EACH EYE QID 05/03/23 05/03/23 atorvastatin 10 mg tablet 10 mg PO DAILY 05/03/23 05/04/23 brimonidine 0.2 %-timolol 0.5 % 2 drp EACH EYE DAILY 05/03/23 05/03/23 eye drops (Combigan) cyclosporine 0.05 % eye drops in a 1 drp EACH EYE BID 05/03/23 05/04/23 dropperette (Restasis) doxycycline monohydrate 100 mg 100 mg PO DAILY 05/03/23 05/03/23 tablet levothyroxine 75 mcg tablet 75 mcg PO DAILY 05/03/23 05/03/23 meloxicam 15 mg tablet 15 mg PO DAILY 05/03/23 05/03/23 prednisolone acetate 1 % eye 1 drp EACH EYE QID PRN Eye 05/03/23 05/03/23 drops,suspension Irritation travoprost 0.004 % eye drops 1 drp EACH EYE HS 05/03/23 05/03/23 (Travatan Z) Ocuvite Adult 50 Plus 1 tablet BYMOUTH DAILY 05/04/23 05/04/23 <Shital Tillman, PATIENT ASSISTANT - Last Filed: 05/17/23 18:24> Allergies/Adverse reactions: Allergies Allergy/AdvReac Type Severity Reaction Status Date / Time naproxen AdvReac Unknown Nausea and Verified 05/03/23 10:15 Vomiting Anesthetics - Amide Type - AdvReac Vomiting Verified 05/05/23 18:27 Select A Anesthetics - Heena Type- AdvReac Vomiting Verified 05/05/23 18:27 Parabens <Shital Tillman, PATIENT ASSISTANT - Last Filed: 05/17/23 18:24> Review of Systems Review of Systems: All systems reviewed & are unremarkable except as noted in HPI and below <Shital Tillman, PATIENT ASSISTANT - Last Filed: 05/17/23 18:24> FOR[facility]LY [facility] Past Medical History Medical History: Medical History Depression Elevated liver enzymes Glaucoma HLD (hyperlipidemia) Mitral valve prolapse Nausea & vomiting Osteoarthritis Upper abdominal pain <Shital Tillman PATIENT ASSISTANT - Last Filed: 05/17/23 18:24> Surgical History Surgical History: Surgical History H/O breast augmentation History of section No pertinent past surgical history <Shital Tillman, PATIENT ASSISTANT - Last Filed: 05/17/23 18:24> Family History Family History: Family History (Reviewed 05/11/23 @ 11:25 by Marylou Smith
[2023-05-17] MEDS: LACTATED RINGERS 1,000 ML 999 ML IV CONT (14:32)
[2023-05-17] MEDS: PROCHLORPERAZINE EDISYLATE 10 MG/2 ML VIAL IV PUSH (14:33)
[2023-05-17] MEDS: PANTOPRAZOLE SODIUM IV 40 MG VIAL IV PUSH (14:34)
[2023-05-17] MEDS: LACTATED RINGERS 1,000 ML 125 ML IV CONT (17:55)
--- NOTE | 2023-05-17 21:00 | ADMGEN ---
This patient, Celi Velasco, was admitted to Medical Room 342-01. Patient/family oriented to hospital policies and general routines including ID bracelet, bed and alarms, visiting hours, pain management, procedures, bathroom and other care routines, personal items, smoking policy, room service/diet, and visiting hours. Information on how to activate the Rapid Response Team has been discussed. Patient/Family are encouraged to report perceived risks to care and to ask questions if they do not understand what they are told or what they should do.
--- NOTE | 2023-05-17 23:20 | PM.IMHP ---
H&P: HPI History of Present Illness Date/Time: 05/17/23 23:20 Chief Complaint: Nausea/Vomiting Narrative: 67 y/o F presents here with persistent nausea and vomiting for 3 weeks with PMH recent gallstone pancreatitis with subsequent cholecystectomy on 05/06, HLD, depression, MVP, OA, and hypothyroidism. Patient presents here with persistent nausea/vomiting for the past 3 weeks. home interventions include brat diet, ODT Zofran, PO Compazine without effect. Endorsing epigastric pain which she describes as constant. Can obtain some relief when she lays on her left side. due to nausea has not been able to take her oral medications. Denies diarrhea or constipation. No recent foreign travel. Recent cholecystectomy, see below summary of care. Patient was seen on 05/03 with nausea, vomiting, RUQ tenderness, and abdominal pain and subsequently admitted. CT of abdomen showed cholelithiasis and mild gallbladder wall thickening. Ultrasound showed mildly dilated gallbladder with borderline wall thickening cholelithiasis and positive Kendrick sign. LFTs were elevated, trended down during stay, r/t suspected acute gallstone pancreatitis. Cholecystectomy done on 05/06 and discharged home on 05/07. Per chart review, patient was nauseous at discharge, however nausea has worsened and persisted since d/c. Returned to the ER on 05/11 with nausea, vomiting, abdominal soreness, and right calf pain. No changes in bowel movements. Ultrasound of right lower extremity negative for DVT. Repeat CT of abdomen pelvis showed minimal fat stranding in the right upper quadrant, likely secondary to recent choley, no abscess or intraperitoneal free air, diverticulosis of left and right colon without evidence of diverticulitis, normal appendix, hepatic steatosis. AST and ALT back at baseline. UA consistent with dehydration. Patient offered admission, declined and would like to trial symptomatic control at home. discharge home with the oral Compazine. Review of Systems Review of Systems: All systems reviewed & are unremarkable except as noted in HPI and below PMFSH Past Medical History Medical History (Updated 05/18/23 @ 00:25 by Princess Diego APRN) Depression Elevated liver enzymes secondary to gallstone, LFTs returned to baseline. 05/03-05/08 admission. Glaucoma HLD (hyperlipidemia) Mitral valve prolapse Nausea & vomiting Osteoarthritis Surgical History Surgical History (Updated 05/18/23 @ 00:25 by Princess Diego APRN) History of breast augmentation History of section History of cholecystectomy 05/06/23 Family History Family History Mother Cholecystitis Sibling Cholecystitis Postoperative acute deep vein thrombosis (DVT) of lower extremity Social History Social History (Updated 05/18/23 @ 00:26 by Princess Diego APRN) Social History: Currently lives at home with her . Full code. Surrogate decision maker - Meliton Velasco (). Smoking status: Never smoker Alcohol intake: current Alcohol use details: occasional Substance use: never Substance use type: does not use Lack of Transportation: No Lack of Food: Never True Current Housing: I Have Housing Concerned About Future Housing: No Difficulty Paying Gas/Electric Bills: No Difficulty Paying for Meds: No Currently Unemployed: No Education: Associate Degree Difficulty w/ Childcare or Family Care: No Living arrangements: with family Spiritual care concerns: No Meds Home Medications and Allergies Home Medications Medication Instructions Recorded Confirmed Type All Day Calcium 1,800 mg PO DAILY 05/03/23 05/17/23 History [place] 3 Fish Oil 1,000 mg PO DAILY 05/03/23 05/17/23 History One-A-Day 50 Plus 1 tablet PO DAILY 05/03/23 05/17/23 History Retaine MGD (PF) 1 drp EACH EYE QID 05/03/23 05/17/23 History atorvastatin 10 mg tablet 10 mg PO DAILY 05/03/23 05/17/23 History merry
[2023-05-17] MEDS: BELLADONNA ALK/PHENOB ELIX 10 ML, MAG HYDROX/ALUMINUM HYD/SIMETH 30 ML, LIDOCAINE HCL 2... PO (23:58)
[2023-05-18 04:43] VITALS: BP 125/61; PULSE 85; RESP 16; TEMP 36.1; O2SAT 97
[2023-05-18] MEDS: LACTATED RINGERS 1,000 ML 125 ML IV CONT (04:55)
[2023-05-18 06:04] LABS: Basophils Percent Auto 0.8 % (0.2-1.2); Eosinophils Absolute Auto 0.1 K/mm3 (0-0.3); Eosinophils Percent Auto 2.5 % (0-4.4); Hematocrit 30.7 % (37.0-47.0); Hemoglobin 10.1 g/dL (12.0-15.0); Immature Granulocyte Absolute 0.02 K/mm3 (0.00-0.031); Immature Granulocyte Percent A 0.4 % (0-0.5); Lymphocytes Absolute Auto 1.28 K/mm3 (0.9-3.2); Lymphocytes Percent Auto 24.5 % (18.3-44.2); Mean Corpuscular HGB Conc 32.9 g/dl (32-36); Mean Corpuscular Hemoglobin 31.3 pg (26-34); Mean Platelet Volume 8.8 fl (7.4-10.4); Monocytes Absolute Auto 0.6 K/mm3 (0.1-0.6); Monocytes Percent Auto 10.7 % (2.6-8.5); Neutrophils Absolute Auto 3.2 K/mm3 (1.3-6.7); Neutrophils Percent Auto 61.1 % (45.5-73.1); Platelet Count Result 317 k/mm3 (150-375); Red Blood Count 3.23 M/mm3 (4.2-5.4); Red Cell Distribution Width 12.2 % (11.5-14.5); White Blood Count 5.2 K/mm3 (4.5-10.0)
[2023-05-18 06:12] LABS: Anion Gap 8 mmol/L (8-16); Blood Urea Nitrogen 11 mg/dL (7-17); Calcium 8.5 mg/dL (8.4-10.2); Carbon Dioxide 28 mmol/L (22-30); Chloride 98 mmol/L (98-107); Estimated CRCL calculation 76 ml/min; Estimated Glomerular Filt Rate > 60; Glucose 82 mg/dL (65-110); Potassium 3.1 mmol/L (3.4-5.0); Sodium 134 mmol/L (137-145)
[2023-05-18] MEDS: PANTOPRAZOLE SODIUM IV 40 MG VIAL IV PUSH ×2 (08:33→21:02)
[2023-05-18] MEDS: ENOXAPARIN 40 MG/0.4 ML SYRINGE SUB-Q (08:33)
[2023-05-18 11:27] LABS: Free T4 Free Thyroxine Reflex 1.48 ng/dL (0.78-2.19)
--- NOTE | 2023-05-18 12:12 | PM.IMPN ---
Progress Note: A&P Assessment and Plan (1) Nausea & vomiting: Code(s): R11.2 - Nausea with vomiting, unspecified Status: Acute Assessment and Plan: Failed home Zofran and Compazine - IV Compazine minimally effective trial GI Cocktail and Haldol 5mg/50mL of NS for nausea CT abdomen pelvis revealing postoperative changes from recent cholecystectomy. No abscess or intraperitoneal free fluid. HIDA scan done today, no bile leak IV pantoprazole Q 12 H LR 125 ml/hr for maintenance consult GI (2) Upper abdominal pain: Code(s): R10.10 - Upper abdominal pain, unspecified Status: Acute Assessment and Plan: Patient with recent cholecystectomy. Have not have invited cause of abdominal pain other than postoperative cholecystectomy. Improving with pain medications and antiemetics. Closely monitor a.m. labs daily (3) Dehydration: Code(s): E86.0 - Dehydration Status: Acute Assessment and Plan: 4+ ketones in UA consistent with persistent vomiting and subsequent dehydration/poor PO intake Continue IV fluids Orthostatics positive likely due to dehydration. Check Q shift (4) Hypothyroidism: Code(s): E03.9 - Hypothyroidism, unspecified Status: Acute Assessment and Plan: TSH elevated to 6.8. Patient has not been taking her medications and this is likely why TSH is elevated. Continue Synthroid Subjective Date/time seen: 05/18/23 12:12 Interval history: Patient continues to have persistent nausea although there is no sign of any bile leak on imaging test. Will continue to closely monitor patient's labs. she denies any diarrhea, dizziness, lightheadedness, chest pain shortness of breath. She does feel overall very weak but has had decreased appetite over the past several days. Exam Narrative: GENERAL: Comfortable, no acute distress HENMT: moist mucous membranes EYES: EOM intact b/l NECK: no lymphadenopathy RESPIRATORY: clear to auscultation CARDIO: RRR GI: soft, nontender, bowel sounds present SKIN: no rashes EXTREMITIES: no edema, redness or tenderness Objective Data Vital Signs Vital Signs: Vital Signs - 24 hr 05/17/23 15:15 05/17/23 15:00 05/17/23 14:45 Temperature Pulse Rate 87 91 103 H Respiratory Rate 18 18 18 Blood Pressure 149/79 H 146/57 H 139/81 Pulse Oximetry 99 99 99 05/17/23 14:35 05/17/23 15:30 05/17/23 15:45 Temperature Pulse Rate 101 H 97 89 Respiratory Rate 18 18 16 Blood Pressure 128/69 155/61 H 149/84 H Pulse Oximetry 98 100 99 05/17/23 16:00 05/17/23 19:14 05/17/23 20:38 Temperature Pulse Rate 97 102 H 98 Respiratory Rate 16 15 15 Blood Pressure 149/71 H 130/78 126/84 Pulse Oximetry 99 100 100 05/17/23 20:49 05/17/23 20:51 05/17/23 20:53 Temperature 98.3 F Pulse Rate 96 Respiratory Rate 18 Blood Pressure 130/67 134/73 82/52 L Pulse Oximetry 99 05/18/23 04:43 Temperature 97 F L Pulse Rate 85 Respiratory Rate 16 Blood Pressure 125/61 Pulse Oximetry 97 Intake/Output Intake/Output: Intake & Output 05/15/23 05/16/23 05/17/23 05/18/23 23:59 23:59 23:59 23:59 Intake Total 1000 1480 Output Total 500 Balance 1000 980 Meds/Results Medications: Active Medications Generic Name Dose Route Start Last Admin Trade Name Freq PRN Reason Stop Dose Admin Enoxaparin Sodium 40 mg 05/18/23 09:00 05/18/23 08:33 Enoxaparin 40 Mg/0.4 Ml Syringe SUB-Q 40 mg DAILY ALEX Administration Lactated Ringer's 1,000 mls @ 125 mls/hr 05/17/23 15:05 05/18/23 04:55 Lr - Lactated Ringers Iv IV CONT 125 mls/hr .Q8H ALEX Administration Lorazepam 1 mg 05/18/23 12:11 Lorazepam Inj (*Crx) 2 Mg/Ml Vial IV PUSH Q6H PRN Anxiety Prochlorperazine Edisylate 10 mg 05/17/23 15:02 Prochlorperazine Edisylate 10 Mg/2 Ml Vial IV PUSH Q6H PRN Nausea And Vomiting Labs Labs: Laboratory Results
[2023-05-18 12:15] LABS: Total Triiodothyronine (T3) 0.92 NG/ML (0.97-1.69)
[2023-05-18 14:00] VITALS: BP 112/62; PULSE 105; RESP 18; TEMP 36.6; O2SAT 97
[2023-05-18 14:14] LABS: Lipase 69 U/L (23-300)
[2023-05-18] MEDS: LACTATED RINGERS 1,000 ML 100 ML IV CONT (16:06)
[2023-05-18 20:12] VITALS: BP 114/65; PULSE 86; RESP 18; TEMP 36.7; O2SAT 98
[2023-05-18] MEDS: HALOPERIDOL LACTATE 5 MG/ML VIAL 2.5 MG IV PUSH (21:03)
[2023-05-19] MEDS: LORazepam INJ (*CRX) 2 MG/ML VIAL 1 MG IV PUSH ×2 (00:29→21:14)
[2023-05-19 04:22] VITALS: BP 123/60; PULSE 85; RESP 14; TEMP 36.6; O2SAT 100
[2023-05-19 06:06] LABS: Hemoglobin 9.3 g/dL (12.0-15.0); Mean Corpuscular HGB Conc 33.2 g/dl (32-36); Mean Corpuscular Hemoglobin 31.2 pg (26-34); Mean Platelet Volume 8.8 fl (7.4-10.4); Platelet Count Result 308 k/mm3 (150-375); Red Blood Count 2.98 M/mm3 (4.2-5.4); Red Cell Distribution Width 12.4 % (11.5-14.5); White Blood Count 5.6 K/mm3 (4.5-10.0)
[2023-05-19 06:16] LABS: Alanine Aminotransferase 22 U/L (6-35); Albumin Level 3.2 g/dL (3.5-5.1); Alkaline Phosphatase 80 U/L (38-126); Anion Gap 4 mmol/L (8-16); Aspartate Amino Transferase 32 U/L (14-36); Bilirubin,Total 0.4 mg/dL (0.2-1.3); Blood Urea Nitrogen 5 mg/dL (7-17); Calcium 8.3 mg/dL (8.4-10.2); Carbon Dioxide 33 mmol/L (22-30); Chloride 101 mmol/L (98-107); Estimated CRCL calculation 76 ml/min; Estimated Glomerular Filt Rate > 60; Glucose 89 mg/dL (65-110); Potassium 3.1 mmol/L (3.4-5.0); Sodium 138 mmol/L (137-145)
[2023-05-19 08:38] LABS: Transferrin 135 mg/dL (206-381)
[2023-05-19] MEDS: PANTOPRAZOLE SODIUM IV 40 MG VIAL IV PUSH ×2 (09:20→21:14)
[2023-05-19] MEDS: ENOXAPARIN 40 MG/0.4 ML SYRINGE SUB-Q (09:20)
[2023-05-19] MEDS: POTASSIUM CHLORIDE INJ 40 MEQ in SODIUM CHLORIDE 0.9% IV 500 ML 130 MEQ IVPB (09:21)
[2023-05-19 09:34] LABS: Folic Acid > 20.0 ng/mL (2.76->20)
[2023-05-19 11:56] LABS: Iron 34 ug/dL (37-170)
[2023-05-19 12:05] LABS: Percent Iron Saturation 15 % (20-50)
--- NOTE | 2023-05-19 12:09 | PM.IMPN ---
Progress Note: A&P Assessment and Plan (1) Nausea & vomiting: Code(s): R11.2 - Nausea with vomiting, unspecified Status: Acute Assessment and Plan: Failed home Zofran and Compazine - IV Compazine minimally effective trial GI Cocktail and Haldol 5mg/50mL of NS for nausea CT abdomen pelvis revealing postoperative changes from recent cholecystectomy. No abscess or intraperitoneal free fluid. HIDA scan done today, no bile leak IV pantoprazole Q 12 H consult GI (2) Upper abdominal pain: Code(s): R10.10 - Upper abdominal pain, unspecified Status: Acute Assessment and Plan: Patient with recent cholecystectomy. Have not have invited cause of abdominal pain other than postoperative cholecystectomy. Improving with pain medications and antiemetics. Closely monitor a.m. labs daily (3) Dehydration: Code(s): E86.0 - Dehydration Status: Acute Assessment and Plan: 4+ ketones in UA consistent with persistent vomiting and subsequent dehydration/poor PO intake Continue IV fluids Orthostatics positive likely due to dehydration. Check Q shift (4) Hypothyroidism: Code(s): E03.9 - Hypothyroidism, unspecified Status: Acute Assessment and Plan: TSH elevated to 6.8. Patient has not been taking her medications and this is likely why TSH is elevated. Continue Synthroid Subjective Date/time seen: 05/19/23 12:09 Interval history: Patient states that she is feeling a little better. Will plan to advance her diet to see if she can tolerate it. Does not complain of any active nausea, vomiting or abdominal pain at this time. Exam Narrative: GENERAL: Comfortable, no acute distress HENMT: moist mucous membranes EYES: EOM intact b/l NECK: no lymphadenopathy RESPIRATORY: clear to auscultation CARDIO: RRR GI: soft, nontender, bowel sounds present SKIN: no rashes EXTREMITIES: no edema, redness or tenderness Objective Data Vital Signs Vital Signs: Vital Signs - 24 hr 05/18/23 14:00 05/18/23 20:12 05/19/23 04:22 Temperature 97.9 F 98.1 F 97.9 F Pulse Rate 105 H 86 85 Respiratory Rate 18 18 14 Blood Pressure 112/62 114/65 123/60 Pulse Oximetry 97 98 100 Intake/Output Intake/Output: Intake & Output 05/16/23 05/17/23 05/18/23 05/19/23 23:59 23:59 23:59 23:59 Intake Total 1000 3400 900 Output Total 1000 Balance 1000 2400 900 Meds/Results Medications: Active Medications Generic Name Dose Route Start Last Admin Trade Name Freq PRN Reason Stop Dose Admin Enoxaparin Sodium 40 mg 05/18/23 09:00 05/19/23 09:20 Enoxaparin 40 Mg/0.4 Ml Syringe SUB-Q 40 mg DAILY ALEX Administration Haloperidol Lactate 2.5 mg 05/18/23 14:28 05/18/23 21:03 Haloperidol Lactate 5 Mg/Ml Vial IV PUSH 2.5 mg Q8H PRN Administration nausea Lorazepam 1 mg 05/18/23 12:11 05/19/23 00:29 Lorazepam Inj (*Crx) 2 Mg/Ml Vial IV PUSH 1 mg Q6H PRN Administration Anxiety Pantoprazole Sodium 40 mg 05/18/23 21:00 05/19/23 09:20 Pantoprazole Sodium Iv 40 Mg Vial IV PUSH 40 mg Q12HR ALEX Administration Prochlorperazine Edisylate 10 mg 05/17/23 15:02 Prochlorperazine Edisylate 10 Mg/2 Ml Vial IV PUSH Q6H PRN Nausea And Vomiting Labs Labs: Laboratory Results - last 24 hr 05/18/23 05/18/23 05/19/23 05:40 05:43 05:25 WBC RBC Hgb Hct MCV MCH MCHC RDW Plt Count MPV Sodium Potassium Chloride Carbon Dioxide Anion Gap BUN Creatinine Estim Creat Clear Calc Estimated GFR Glucose Calcium Iron TIBC Transferrin 135 L Total Bilirubin AST ALT Alkaline Phosphatase Total Protein Albumin Lipase 69 Vitamin B12 983.0 H Folate > 20.0 H Total T3 0.92 L 05/19/23 05/19/23 05:27 08:41 WBC 5.6 RBC 2.98 L Hgb 9.3 L Hct 28.0 L MCV 94.0 M
[2023-05-19 14:00] VITALS: BP 116/53; PULSE 88; RESP 18; TEMP 36.9; O2SAT 99
[2023-05-19] MEDS: FERROUS GLUCONATE 324 MG TABLET PO (14:17)
[2023-05-19 21:29] VITALS: BP 96/58; PULSE 80; RESP 18; TEMP 36.8; O2SAT 97
[2023-05-20 05:49] VITALS: BP 110/46; PULSE 76; RESP 18; TEMP 36.1; O2SAT 96
[2023-05-20 05:51] LABS: Hemoglobin 9.2 g/dL (12.0-15.0); Mean Corpuscular HGB Conc 32.9 g/dl (32-36); Mean Corpuscular Hemoglobin 31.6 pg (26-34); Mean Corpuscular Volume 96.2 fl (80-100); Mean Platelet Volume 8.7 fl (7.4-10.4); Platelet Count Result 252 k/mm3 (150-375); Red Blood Count 2.91 M/mm3 (4.2-5.4); Red Cell Distribution Width 12.5 % (11.5-14.5); White Blood Count 4.5 K/mm3 (4.5-10.0)
[2023-05-20 06:03] LABS: Alanine Aminotransferase 22 U/L (6-35); Alkaline Phosphatase 80 U/L (38-126); Anion Gap 4 mmol/L (8-16); Aspartate Amino Transferase 29 U/L (14-36); Bilirubin,Total 0.3 mg/dL (0.2-1.3); Blood Urea Nitrogen 4 mg/dL (7-17); Calcium 8.2 mg/dL (8.4-10.2); Carbon Dioxide 28 mmol/L (22-30); Chloride 103 mmol/L (98-107); Estimated CRCL calculation 76 ml/min; Estimated Glomerular Filt Rate > 60; Glucose 100 mg/dL (65-110); Potassium 3.3 mmol/L (3.4-5.0); Sodium 135 mmol/L (137-145)
[2023-05-20] MEDS: PANTOPRAZOLE SODIUM IV 40 MG VIAL IV PUSH (08:45)
[2023-05-20] MEDS: POTASSIUM CHLORIDE INJ 40 MEQ in SODIUM CHLORIDE 0.9% IV 500 ML 130 MEQ IVPB (08:45)
[2023-05-20] MEDS: ENOXAPARIN 40 MG/0.4 ML SYRINGE SUB-Q (08:46)
[2023-05-20] MEDS: FERROUS GLUCONATE 324 MG TABLET PO (08:46)
--- NOTE | 2023-05-20 10:22 | PM.IMPN ---
Subjective Date/time seen: 05/20/23 10:22 Objective Data Vital Signs Vital Signs: Vital Signs - 24 hr 05/19/23 14:00 05/19/23 21:29 05/20/23 05:49 Temperature 98.4 F 98.2 F 97 F L Pulse Rate 88 80 76 Respiratory Rate 18 18 18 Blood Pressure 116/53 L 96/58 L 110/46 L Pulse Oximetry 99 97 96 Intake/Output Intake/Output: Intake & Output 05/17/23 05/18/23 05/19/23 05/20/23 23:59 23:59 23:59 23:59 Intake Total 1000 3400 900 250 Output Total 1000 Balance 1000 2400 900 250 Meds/Results Medications: Active Medications Generic Name Dose Route Start Last Admin Trade Name Freq PRN Reason Stop Dose Admin Enoxaparin Sodium 40 mg 05/18/23 09:00 05/20/23 08:46 Enoxaparin 40 Mg/0.4 Ml Syringe SUB-Q 40 mg DAILY ALEX Administration Ferrous Gluconate 324 mg 05/20/23 08:00 05/20/23 08:46 Ferrous Gluconate 324 Mg Tablet PO 324 mg DAILY@0800 ALEX Administration Potassium Chloride 40 meq/ 520 mls @ 130 mls/hr 05/20/23 07:31 05/20/23 08:45 Sodium Chloride IVPB 05/20/23 11:30 130 mls/hr ONCE ONE Administration Lorazepam 0.5 mg 05/20/23 07:32 Lorazepam Inj (*Crx) 2 Mg/Ml Vial IV PUSH Q6H PRN Anxiety Pantoprazole Sodium 40 mg 05/18/23 21:00 05/20/23 08:45 Pantoprazole Sodium Iv 40 Mg Vial IV PUSH 40 mg Q12HR ALEX Administration Prochlorperazine Edisylate 10 mg 05/17/23 15:02 Prochlorperazine Edisylate 10 Mg/2 Ml Vial IV PUSH Q6H PRN Nausea And Vomiting Labs Labs: Laboratory Results - last 24 hr 05/19/23 05/20/23 08:41 05:23 WBC 4.5 RBC 2.91 L Hgb 9.2 L Hct 28.0 L MCV 96.2 MCH 31.6 MCHC 32.9 RDW 12.5 Plt Count 252 MPV 8.7 Sodium 135 L Potassium 3.3 L Chloride 103 Carbon Dioxide 28 Anion Gap 4 L BUN 4 L Creatinine 0.60 L Estim Creat Clear Calc 76 Estimated GFR > 60 Glucose 100 Calcium 8.2 L Iron 34 L TIBC 226 L % Saturation 15 L Ferritin 86.40 Total Bilirubin 0.3 AST 29 ALT 22 Alkaline Phosphatase 80 Total Protein 6.0 L Albumin 3.0 L
--- NOTE | 2023-05-20 13:03 | PCNWS ---
Weekly nutritional screen. Patient is tolerating current diet with adequate intake. No nutritional needs at this time.
[2023-05-20 14:00] VITALS: BP 105/66; PULSE 96; RESP 18; TEMP 37.1; O2SAT 99
--- NOTE | 2023-05-20 14:45 | PM.DS ---
DS: Admitting Diagnosis Discharge Date 05/20/23 Admitting Diagnosis Nausea, vomiting DS: Discharge Diagnosis Discharge Diagnosis (1) Nausea & vomiting: Code(s): R11.2 - Nausea with vomiting, unspecified Status: Acute (2) Upper abdominal pain: Code(s): R10.10 - Upper abdominal pain, unspecified Status: Acute (3) Dehydration: Code(s): E86.0 - Dehydration Status: Acute (4) Hypothyroidism: Code(s): E03.9 - Hypothyroidism, unspecified Status: Acute DS: Summary Hospital Course Hospital Course: This is a 67-year-old female that presented to the ED on 05/17/2023 due to persistent nausea vomiting postoperative cholecystectomy on 05/06/2023. Patient has a past medical history of hyperlipidemia, depression, about prolapse, and hypothyroidism. Patient had been given [place] and Compazine to go home with. Patient stated that neither of those medications helped her. CT abdomen pelvis revealed minimal fat stranding in the right upper quadrant likely secondary to cholecystectomy, no abscess or intraperitoneal free air, diverticulosis of left and right colon without evidence of diverticulitis, normal appendix and hepatic steatosis. HIDA scan performed and did not reveal any biliary leak. UA consistent with dehydration. Patient was started on IV fluids, analgesics and antiemetics. Patient's nausea vomiting improved with IV fluids. Patient very anxious about returning home and the us she was given Ativan due to her increased anxiety. Patient seemed to do well. She was able to tolerate her diet. She was started on clear liquids and increased to a low-fiber diet. Patient only had 1 episode of emesis in the hospital and that was immediately after admission. She has been 2 days without emesis and tolerating her diet well. Her labs and vital signs have remained stable. GI was originally consulted but there was no coverage over the weekend. I have discussed this case with dispatch associate and due to her nausea vomiting resolving they do not think it is necessary that she stays in the hospital. Will refer her to GI outpatient if she continues to have any issues. Patient's labs and vital signs are stable and she is medically clear for discharge at this time. Time Spent with Patient Time attestation: Total time spent providing and/or coordinating discharge services: Exam Narrative: GENERAL: Comfortable, no acute distress HENMT: moist mucous membranes EYES: EOM intact b/l NECK: no lymphadenopathy RESPIRATORY: clear to auscultation CARDIO: RRR GI: soft, nontender, bowel sounds present SKIN: no rashes EXTREMITIES: no edema, redness or tenderness DS: Data Data Completed and Pending Labs on day of discharge: Labs from last 24 hours 05/20/23 05:23 WBC 4.5 RBC 2.91 L Hgb 9.2 L Hct 28.0 L MCV 96.2 MCH 31.6 MCHC 32.9 RDW 12.5 Plt Count 252 MPV 8.7 Sodium 135 L Potassium 3.3 L Chloride 103 Carbon Dioxide 28 Anion Gap 4 L BUN 4 L Creatinine 0.60 L Estim Creat Clear Calc 76 Estimated GFR > 60 Glucose 100 Calcium 8.2 L Total Bilirubin 0.3 AST 29 ALT 22 Alkaline Phosphatase 80 Total Protein 6.0 L Albumin 3.0 L Discharge Plan Discharge Attending physician on discharge: Ismael Ramos Consulting providers: Andrew Love Discharging Clinician: Emily Rodriguez Patient Disposition: Home, Self-Care Activity: as tolerated Diet: bland and low fat Discharge Instructions: Medications: Pantoprazole 40 mg twice daily. Reglan 10 mg as needed every 6 hours. Can call gastroenterology office to make an appointment if you continue to have abdominal discomfort and or nausea. Have attached their office information. Take all medications as prescribed even if feeling better Stay plenty hydrated with water, Pedialyte and or Gatorade. Wear a mask in public, and stay away from large crowds Diet: [employer]
--- NOTE | 2023-05-20 16:22 | WPDGICN ---
Assessment and Plan Assessment and plan (1) Nausea & vomiting: Code(s): R11.2 - Nausea with vomiting, unspecified Status: Acute Assessment and Plan: this has improved, she is going home with antiemetics will set up EGD as outpatient (2) S/P cholecystectomy: Code(s): Z90.49 - Acquired absence of other specified parts of digestive tract Status: Acute Assessment and Plan: CT scan reviewed, liver enzymes normal no more abdominal pain (3) Upper abdominal pain: Code(s): R10.10 - Upper abdominal pain, unspecified Status: Acute (4) Dehydration: Code(s): E86.0 - Dehydration Status: Acute Assessment and Plan: treated and resolved (5) GERD (gastroesophageal reflux disease): Code(s): K21.9 - Gastro-esophageal reflux disease without esophagitis Status: Acute GI Consult Note Consult date/time: 05/20/23 16:22 Reason for consult: nausea and vomiting HPI: Celi Velasco is a 67 year old female who I met about 3 weeks ago when she was admitted because gallstone pancreatitis and elevated liver enzymes with subsequent cholecystectomy on 05/06 (no evidence of choledocholithiasis). Since has been having intermittent nausea and vomiting for the past 3 weeks.?she has been on brat diet, ODT Zofran, PO Compazine. She had repeat CT of abdomen pelvis showed minimal fat stranding in the right upper quadrant, likely secondary to recent choley, no abscess or intraperitoneal free air, diverticulosis of left and right colon without evidence of diverticulitis, normal appendix, hepatic steatosis.? AST and ALT back at baseline. Also has been having reflux symptoms. Right now doing much better with antiemetics, able to eat and she is going home with ppi and antiemetics, had EGD but years ago. Review of Systems Review of Systems: CONSTITUTIONAL: Denies fever, chills EYES: Denies visual changes, redness, or discharge. ENT: Denies rhinorrhea, congestion, sore throat, or otalgia. CARDIOVASCULAR: Denies chest pain, palpitations, or edema. RESPIRATORY: Denies cough or dyspnea. GASTROINTESTINAL: See HPI GENITOURINARY: Denies dysuria or hematuria. SKIN: Denies rash or itching. MUSCULOSKELETAL: See HPI NEUROLOGIC: Denies headache, numbness, dizziness, or weakness. PSYCHIATRIC: Denies anxiety or depression. PMFSH Past Medical History Medical History (Updated 05/20/23 @ 16:27 by Andrew Love MD) Depression Elevated liver enzymes secondary to gallstone, LFTs returned to baseline. 05/03-05/08 admission. GERD (gastroesophageal reflux disease) Glaucoma HLD (hyperlipidemia) Hypothyroidism Mitral valve prolapse Nausea & vomiting Osteoarthritis Surgical History Surgical History (Updated 05/18/23 @ 00:25 by Princess Diego APRN) History of breast augmentation History of section History of cholecystectomy 05/06/23 Family History Family History Mother Cholecystitis Sibling Cholecystitis Postoperative acute deep vein thrombosis (DVT) of lower extremity Social History Social History (Updated 05/18/23 @ 00:26 by Princess Diego APRN) Social History: Currently lives at home with her . Full code. Surrogate decision maker - Meliton Velasco (). Smoking status: Never smoker Alcohol intake: current Alcohol use details: occasional Substance use: never Substance use type: does not use Lack of Transportation: No Lack of Food: Never True Current Housing: I Have Housing Concerned About Future Housing: No Difficulty Paying Gas/Electric Bills: No Difficulty Paying for Meds: No Currently Unemployed: No Education: Associate Degree Difficulty w/ Childcare or Family Care: No Living arrangements: with family Spiritual care concerns: No Meds Home Medications and Allergies Home Medications Medication Instructions Recorded Confirmed Type All Day Calc
== END 2023-05-20 18:30 | disposition home or self-care (01) | DRG 392 ==
LOC: ANHED 14:20 → ANH3MEDSUR 17:02 → ANH3MED 19:58
PROVIDERS: Preventive Medicine Aerospace Medicine; Student in an Organized Health Care Education/Training Program; Admitting Provider Internal Medicine; Emergency Provider Nurse Practitioner Family; PCP Nurse Practitioner Family; Visit Provider Internal Medicine Critical Care Medicine
DX: K91.0 Vomiting following gastrointestinal surgery (principal); E86.0 Dehydration; E78.5 Hyperlipidemia, unspecified; E03.9 Hypothyroidism, unspecified; I34.1 Nonrheumatic mitral (valve) prolapse; H40.9 Unspecified glaucoma; M19.90 Unspecified osteoarthritis, unspecified site; Z90.49 Acquired absence of other specified parts of digestive tract
CPT/HCPCS: 36415; 78226; 80048; 80053; 81001; 82607; 82728; 82746; 83540; 83550; 83690; 84439; 84443; 84466; 84480; 85025; 85027; 86038; 86039; 96361; 96372; 96374; 96375; 96376; 99285; A9270; A9537; C9113; G0378; J0780; J1630; J1650; J2060; J3480; J7040; J7120

== ENCOUNTER 2023-11-25 16:01 | Outpatient (CLI) | payer MEDICARE, SELFPAY ==
--- NOTE | ~2023-11-25 | XR_ITS ---
EXAMINATION: XR abdomen/kub 1V INDICATION: Abdominal pain TECHNIQUE: Supine views of the abdomen were obtained on 2 radiographs. COMPARISON: CT, 05/11/2023 FINDINGS: The bowel gas pattern is normal. There is a moderate volume of colonic stool. There is mode rate right and mild left hip osteoarthritis. Cholecystectomy clips are noted. There is no free intrap eritoneal gas. No dilated loops of bowel are identified. IMPRESSION: 1. No radiographic correlate for the patient's symptoms. Reviewed, dictated and finalized at location F.
[2023-11-25 16:27] LABS: Hematocrit 34.7 % (37.0-47.0); Hemoglobin 10.7 g/dL (12.0-15.0); Mean Corpuscular HGB Conc 30.8 g/dl (32-36); Mean Corpuscular Hemoglobin 27.9 pg (26-34); Mean Corpuscular Volume 90.6 fl (80-100); Mean Platelet Volume 8.7 fl (7.4-10.4); Platelet Count Result 326 k/mm3 (150-375); Red Blood Count 3.83 M/mm3 (4.2-5.4); Red Cell Distribution Width 14.6 % (11.5-14.5); White Blood Count 7.6 K/mm3 (4.5-10.0)
[2023-11-25 16:36] LABS: Alanine Aminotransferase 19 U/L (6-35); Albumin Level 4.4 g/dL (3.5-5.1); Alkaline Phosphatase 108 U/L (38-126); Anion Gap 6 mmol/L (8-16); Aspartate Amino Transferase 26 U/L (14-36); Bilirubin,Total 0.5 mg/dL (0.2-1.3); Blood Urea Nitrogen 19 mg/dL (7-17); Calcium 10.7 mg/dL (8.4-10.2); Carbon Dioxide 29 mmol/L (22-30); Chloride 102 mmol/L (98-107); Estimated Glomerular Filt Rate > 60; Glucose 99 mg/dL (65-110); Potassium 3.9 mmol/L (3.4-5.0); Sodium 137 mmol/L (137-145)
== END 2023-11-25 16:02 | disposition home or self-care (01) ==
PROVIDERS: PCP Nurse Practitioner Family; Visit Provider Nurse Practitioner Family
DX: R19.8 Other specified symptoms and signs involving the digestive system and abdomen (principal); K59.00 Constipation, unspecified; H40.9 Unspecified glaucoma; E78.2 Mixed hyperlipidemia
CPT/HCPCS: 36415; 74018; 80053; 84443; 85027

== ENCOUNTER 2023-12-03 07:47 | Outpatient (CLI) | payer MEDICARE, SELFPAY ==
--- NOTE | ~2023-12-03 | CT_ITS ---
CT of the Abdomen and Pelvis: Indication: Other specified symptoms and signs involvement of the digestive system Technique: 2.5 mm axial scans were obtained through the abdomen and pelvis following intravenous adm inistration of 100 cc of Omnipaque 350. Dose reduction technique was used on this scan by utilizing a utomated exposure control and iterative reconstruction technique. The dose-length product (DLP) was 3 86.00 mGy-cm. Findings: Scans through the lung bases are unremarkable. The liver, spleen, pancreas, adrenals and kidneys are within normal limits. Cholecystectomy clips are present. No evidence of aortic aneurysm. No lymphadenopathy. There is wall thickening and pericolic inflammatory change of the distal sigmoid colon/rectum. There is an irregular abscess tracking along the left pericolonic region in the low pelvis (axial images 15 0-169), measuring approximately 5.5 cm in craniocaudal extent. Images through the pelvis were performed. Urinary bladder unremarkable. No pelvic mass seen. No ascit es. Impression: Findings consistent with distal sigmoid/rectal diverticulitis, with associated irregular abscess trac alejandro along the left pericolic region and low pelvis, as detailed above. Consider colonoscopy after in terval therapy to better exclude underlying malignancy. Reviewed, dictated and finalized at location . Impression: Findings consistent with distal sigmoid/rectal diverticulitis, with associated irregular abscess tracking along the left pericolic region and low pelvis, as d etailed above. Consider colonoscopy after interval therapy to better exclude un derlying malignancy.
== END 2023-12-03 07:48 | disposition home or self-care (01) ==
PROVIDERS: PCP Nurse Practitioner Family; Visit Provider Nurse Practitioner Family
DX: R19.8 Other specified symptoms and signs involving the digestive system and abdomen (principal)
CPT/HCPCS: 74177; Q9967

== ENCOUNTER 2023-12-11 10:59 | Outpatient (CLI) | payer MEDICARE, SELFPAY ==
--- NOTE | ~2023-12-11 | CT_ITS ---
EXAMINATION: CT abdomen pelvis w con DATE: 12/11/2023 11:51 INDICATION: Diverticulitis of intestine, part unspecified. TECHNIQUE: Computed tomography (CT) of the abdomen and pelvis was performed with 100 mL Omnipaque 350 intravenous contrast. Automated exposure control and iterative reconstruction technique were employe d. The dose-length product was 576.47 mGy-cm. COMPARISON: CT abdomen and pelvis 12/03/2023 FINDINGS: The visualized portions of the lung bases demonstrate mild atelectasis. No pleural effusion . The heart size is normal. No pericardial effusion. There are bilateral breast implants. The liver i s normal. There are changes of cholecystectomy. The spleen, pancreas, adrenal glands, and kidneys are normal. There are scattered diverticula in the colon. There is a network of fistulas between portion s of the rectosigmoid containing gas and less than 1 mL of fluid. The fistulas abut the vagina. The a ppendix is normal. There are no pathologically enlarged lymph nodes. There is no free intraperitoneal fluid. There is severe spondylosis at L4-L5. IMPRESSION: 1. Chronic rectosigmoid diverticulitis with fistulas. Reviewed, dictated and finalized at location A.
== END 2023-12-11 11:00 | disposition home or self-care (01) ==
LOC: ANHIMG 10:59
PROVIDERS: PCP Nurse Practitioner Family; Visit Provider Surgery
DX: K57.80 Diverticulitis of intestine, part unspecified, with perforation and abscess without bleeding (principal)
CPT/HCPCS: 74177; Q9967

== ENCOUNTER 2024-01-13 08:02 | Outpatient (CLI) | payer MEDICARE, SELFPAY | END 2024-01-13 08:03 | disposition home or self-care (01) | LOC: ANHSURGERY 08:06 | PROVIDERS: PCP Nurse Practitioner Family; Visit Provider Surgery | DX: K57.80 Diverticulitis of intestine, part unspecified, with perforation and abscess without bleeding (principal) | CPT/HCPCS: 36415; 86850; 86900; 86901 ==

== ENCOUNTER 2024-01-20 14:34 | Inpatient (IN) | payer MEDICARE, SELFPAY ==
[2024-01-13 08:11] VITALS: BMI 26.1
--- NOTE | 2024-01-13 08:45 | PC.NURSE ---
Report to the Outpatient Waiting Room, entrance under the green pavilion located off [facility], at time ___1000____ on date _01/20/24 . Planned Procedure Time: __1200 . Time changes happen often and if your time is changed the preop area will call you the afternoon before. - You and your visitor will be asked to self-screen and do not enter if you have any COVID symptoms. - A mask is optional within the hospital at this time. Patients may have clear liquids (water, carbonated beverages, clear teas, apple juice) until 3 hours prior to surgery ( 9:00 am)with a maximum of 20 ounces. - No food from midnight until time of surgery - Infants may have breast milk until 4 hours before surgery, infant formula 6 hours prior to surgery. - Children will be allowed to drink immediately following surgery. If applicable, please bring a bottle or sippy cup to assist with drinking. Juice, water, soda, and popsicles are readily available. For infants on formula, please bring formula the day of surgery. Pacifiers are allowed. Take the following medications with a SIP of water the morning of surgery: __morning eye drops,escitalopram,levothyroxine DO NOT STOP ANY OF YOUR OTHER PRESCRIPTION MEDICATIONS PRIOR TO SURGERY ?EXCEPT THE FOLLOWING Medications to discontinue per physician __MELOXICAM 7 DAYS PRE OP PER DR TANNER LAST DOSE 01/12/24____HOLD ALL VITAMINS AND SUPPLEMENTS AND PROBIOTIC 3 DAYS PRE OP.LAST DOSE 01/16/24 HIBICLENS SHOWER DAY BEFORE SURGERY AND MORNING OF SURGERY Please no make-up, nail luxembourgish, hairspray, perfume, deodorant, or body powder the day of surgery. No jewelry (including any body piercings) or valuables the day of surgery, leave them at home. Please take a shower or bath the night before, or the morning of, surgery with an antibacterial soap. Wear comfortable, loose fitting clothing. Children are encouraged to wear pajamas. - Jewelry must be removed prior to entering the operating room. Rings and piercings that are not removed may be cut off. - The hospital will not accept responsibility for valuables. - Please leave all valuables, including medications, at home the day of surgery. If you are going home after surgery, a licensed automobile drivers must drive you home. - NO public transportation without another adult if you receive anesthesia. - We recommend that an adult stay with you for 24 hours following discharge. - We also recommend that you do not drive, make important decision, drink alcoholic beverages, or take any drugs that were not prescribed by your health care provider for at least 24 hours after your discharge time. Follow any additional instructions given to you from your surgeon. If you or anyone in your household have experienced Covid symptoms in the past week, please notify your surgeon or the nurse liaison at the phone number below for possible testing. VERBAL AND WRITTEN instructions given to _PATIENT and asked if any additional questions and then verbalized understanding. Patient advised to call surgeon office or pre surgery nurse liaison [phone] if any additional questions.
[2024-01-13 09:12] VITALS: BP 134/71; PULSE 64; RESP 18; TEMP 37.3; O2SAT 97
[2024-01-20] VITALS (12 sets, daily range): BP systolic 133–147; BP diastolic 50–85; PULSE 62–86; RESP 12–17; TEMP 36.3–36.8; O2SAT 95–100
--- NOTE | 2024-01-20 11:03 | WPDHPUPDATE1 ---
History and Physical Update Update Date/Time: 01/20/24 11:03 History and Physical has been reviewed, including an updated exam of the patient. There are NO changes in the patient's condition. Risks, benefits, and alternatives have been discussed and questions answered. Patient agrees to proceed with procedure.
[2024-01-20] MEDS: LACTATED RINGERS 1,000 ML 30 ML IV CONT ×2 (11:05→15:17)
[2024-01-20] MEDS: ACETAMINOPHEN 500 MG TABLET 1000 MG PO (11:09)
[2024-01-20] MEDS: KETOROLAC 15 MG/ML VIAL (*BKC) IV PUSH (11:12)
--- NOTE | 2024-01-20 11:42 | WPDANESEPPF ---
Anes - Initial Pre Proc Eval Procedure: Operation Date: 01/20/24 12:00 Proposed Procedures p Hand Assisted Laparoscopic Sigmoid Colectomy - Sylvie Frazier MD Date/Time: 01/20/24 11:42 Surgeon: Sylvie Frazier MD Pre Op Diagnosis: diverticulitis with abscess Patient Data Age: 68 Gender: F Height: 1.71 m Weight: 73.1 kg Last Vital Signs Temp 99.1 F 01/13/24 09:12 Pulse 64 01/13/24 09:12 Resp 18 01/13/24 09:12 BP 134/71 01/13/24 09:12 Pulse Ox 97 01/13/24 09:12 O2 Del Method Room Air 01/13/24 09:12 Allergies Allergy/AdvReac Type Severity Reaction Status Date / Time naproxen AdvReac Unknown Nausea and Verified 01/20/24 11:17 Vomiting adhesive tape AdvReac Other Verified 01/20/24 11:17 Home Medications Medication Instructions Recorded Confirmed Type [place] 3 Fish Oil 1,000 mg PO DAILY 05/03/23 01/20/24 History One-A-Day 50 Plus 1 tablet PO HS 05/03/23 01/20/24 History Retaine MGD (PF) 1 drp EACH EYE QID 05/03/23 01/20/24 History atorvastatin 10 mg tablet 10 mg PO HS 05/03/23 01/20/24 History brimonidine 0.2 %-timolol 0.5 % 1 drp EACH EYE BID 05/03/23 01/20/24 History eye drops (Combigan) cyclosporine 0.05 % eye drops in a 1 drp EACH EYE BID 05/03/23 01/20/24 History dropperette (Restasis) meloxicam 15 mg tablet 15 mg PO DAILY 05/03/23 01/20/24 History prednisolone acetate 1 % eye 1 drp EACH EYE PRN PRN Eye 05/03/23 01/13/24 History drops,suspension Irritation travoprost 0.004 % eye drops 1 drp EACH EYE HS 05/03/23 01/20/24 History (Travatan Z) Ocuvite Adult 50 Plus 1 tablet BYMOUTH DAILY 05/04/23 01/20/24 History Tumeric 1 tablet BYMOUTH DAILY 11/05/23 01/20/24 History doxycycline monohydrate 100 mg 100 mg PO DAILY 11/05/23 01/20/24 History tablet ascorbate calcium (vitamin C) 500 500 mg PO HS 11/29/23 01/20/24 History mg tablet escitalopram oxalate 10 mg tablet 10 mg PO DAILY #90 tabs 12/02/23 01/20/24 Rx cholecalciferol (vitamin D3) 50 50 mcg PO DAILY 01/13/24 01/20/24 History mcg (2,000 unit) tablet ferrous sulfate 325 mg (65 mg 325 mg PO HS 01/13/24 01/20/24 History iron) tablet,delayed release lactobacillus combination no.8 3 3 cell PO DAILY 01/13/24 01/20/24 History billion cell capsule levothyroxine 75 mcg tablet 75 mcg PO DAILY 01/13/24 01/20/24 History varenicline 0.03 mg/spray nasal 1 spray intranasal BID 01/13/24 01/20/24 History spray (Tyrvaya) Patient hx anesthesia problems: post op nausea/vomiting (W GA approx 37 years ago. ) Family hx anesthesia problems: none Results Review: All pre-operative results and documents have been reviewed as part of the pre-operative evaluation. [facility] Past Medical History Medical History Bronchitis Constipation Depression Diverticulitis Elevated liver enzymes secondary to gallstone, LFTs returned to baseline. 05/03-05/08 admission. GERD (gastroesophageal reflux disease) Glaucoma HLD (hyperlipidemia) Hypothyroidism Iron deficiency anemia Mitral valve prolapse Nausea & vomiting Osteoarthritis Rectal abscess Rectal pressure Surgical History Surgical History H/O laminectomy History of back surgery History of breast augmentation History of section History of cholecystectomy 05/06/23 Family History Family History Mother Cholecystitis Carcinoma of colon Diabetes mellitus Thyroid disease Sibling Cholecystitis Postoperative acute deep vein thrombosis (DVT) of lower extremity Father Facial basal cell cancer Grandparent Heart disease Cerebrovascular accident Social History Social History Social History: Currently lives at home with her . Full code. Surrogate decision maker - Meliton Velasco (). Smoking status:
[2024-01-20] MEDS: ceFAZolin 2 GM/D5W 50 ML 2 GM/50 ML BAG IVPB ×2 (13:39→22:49)
--- NOTE | 2024-01-20 15:24 | W.PM.PROC2 ---
Procedure Note - Detailed Date of Procedure 01/20/24 Pre-op Diagnosis diverticulitis with abscess Post-op Diagnosis Same Procedure Performed hand assisted laparoscopic sigmoid colectomy with mobilization of the splenic flexure Surgeon Sylvie Frazier MD Anesthesia General Indications 68-year-old female with complicated diverticulitis and abscess Findings extensive sigmoid diverticulitis with noted area of abscess and perforation Description of Procedure The patient was taken to the operating room and placed in the modified lithotomy position.? After adequate induction of general anesthesia, the patient was prepped and draped in the normal sterile fashion.? A time-out was then done to verify the patient's identity, as well as the procedure being performed.? I began by making a hand port incision around the umbilicus.? This incision was carried down into the peritoneal cavity and some lower midline adhesions were noted.? These adhesions were taken down sharply under direct visualization to allow placement of the hand port.? At this point, the hand port was placed and the abdomen was insufflated.? I then placed a trocar through this site and under direct visualization placed a 5 mm and 12 mm ports in the right lower abdomen.? There were adhesions of the small bowel and cecum to the pelvis and these were taken down with the LigaSure device.? I was then able to sweep the small bowel out of the operative field.? I then identified the area of previous perforation and abscess in the sigmoid colon. There was noted to still be a small abscess cavity. This area was extensively irrigated and cleaned.? There was also noted to be further diverticula in the sigmoid colon.? Given these findings, I used a medial dissection to free up the left colon.? I made a small incision in the mesentery and was able to identify the left ureter as well the left colic vessels.? The ureter was then swept posteriorly.? I then took down the left colic vessels with the LigaSure device.? Continuing in this plane I was able to free the mesentery from the underlying retroperitoneal structures.? This plane was carried to the level of the splenic flexure.? I then took down the white line of Toldt laterally along the sigmoid and descending colon.? The splenic flexure was taken down under direct visualization including taken down the omental attachments to the transverse and descending colon.? I then took the dissection to the level of the distal sigmoid upper rectum.? I then dissected laterally by taking down the white line of Toldt in this area.? Also dissected around the area of the distal sigmoid and upper rectum.? I was then able to get around circumferentially in the distal sigmoid upper rectal area.? I then transected the distal sigmoid with upper rectum using a echelon stapler.? Of note this did take 2 staple loads.? At this point I was able to extracorporealyze the specimen.? I then identified the area of the previous perforation and abscess in the sigmoid colon.? The proximal transection was done approximately 10 cm proximal to this area.? I then prepared the proximal colon for our colorectal anastomosis.? Using the EEA sizers, it was noted a 28 EEA stapler would be used for the anastomosis.? I then used a auto pursestring device after transecting the proximal colon and placing the 28 anvil in the proximal colon.? We then reinsufflated the abdomen and noted adequate length of the proximal colon for our anastomosis.? The rectum was then dilated 1st digitally then with the EEA sizers.? Once adequately done, the 28 EEA stapler was placed through the rectum and brought out through the middle of the previous staple line.? I then completed a 28 EEA colorectal anastomosis.? We then did an air leak test using the proctoscope and no leak was noted.? The anastomosis was noted to be widely patent and tension-free.? I then examined the rest of the abdomen and no other pathology was noted.? Then copiously irrigated t
[2024-01-20] MEDS: fentaNYL CITRATE INJ (*CRX) 100 MCG/2 ML VIAL 25 MCG IV PUSH ×6 (15:42→16:28)
--- NOTE | 2024-01-20 16:40 | ADMGEN ---
This patient, Celi Velasco, was admitted to Medical Room 248-. Patient/family oriented to hospital policies and general routines including ID bracelet, bed and alarms, visiting hours, pain management, procedures, bathroom and other care routines, personal items, smoking policy, room service/diet, and visiting hours. Information on how to activate the Rapid Response Team has been discussed. Patient/Family are encouraged to report perceived risks to care and to ask questions if they do not understand what they are told or what they should do.
[2024-01-20] MEDS: HYDROmorphone HCL INJ (*CRX) 1 MG/ML SYR IV PUSH ×2 (17:25→21:50)
[2024-01-20] MEDS: LACTATED RINGERS 1,000 ML 100 ML IV CONT (17:26)
[2024-01-20] MEDS: HYDROcodone/acetaminophen (*CRX) 5-325 MG TABLET 1 TAB PO (19:40)
[2024-01-20] MEDS: FAMOTIDINE 20 MG/2 ML VIAL IV PUSH (19:42)
[2024-01-21] VITALS (8 sets, daily range): BP systolic 113–136; BP diastolic 52–64; PULSE 69–85; RESP 16–20; TEMP 36–36.8; O2SAT 97–100
[2024-01-21] MEDS: HYDROmorphone HCL INJ (*CRX) 1 MG/ML SYR IV PUSH ×2 (02:43→08:30)
[2024-01-21] MEDS: LACTATED RINGERS 1,000 ML 100 ML IV CONT ×2 (04:04→15:12)
[2024-01-21] MEDS: ceFAZolin 2 GM/D5W 50 ML 2 GM/50 ML BAG IVPB (05:17)
[2024-01-21] MEDS: HYDROcodone/acetaminophen (*CRX) 5-325 MG TABLET 1 TAB PO ×4 (05:21→23:36)
[2024-01-21 05:48] LABS: Anion Gap 6 mmol/L (4-12); Blood Urea Nitrogen 13 mg/dL (7-17); Carbon Dioxide 26 mmol/L (22-30); Chloride 103 mmol/L (98-107); Estimated CRCL calculation 67 ml/min; Estimated Glomerular Filt Rate > 60; Glucose 176 mg/dL (65-110); Potassium 4.3 mmol/L (3.4-5.0); Sodium 135 mmol/L (137-145)
[2024-01-21 05:50] LABS: Hematocrit 33.5 % (37.0-47.0); Hemoglobin 10.3 g/dL (12.0-15.0); Mean Corpuscular HGB Conc 30.7 g/dl (32-36); Mean Corpuscular Hemoglobin 29.1 pg (26-34); Mean Corpuscular Volume 94.6 fl (80-100); Mean Platelet Volume 9.8 fl (7.4-10.4); Platelet Count Result 198 k/mm3 (150-375); Red Blood Count 3.54 M/mm3 (4.2-5.4); Red Cell Distribution Width 15.3 % (11.5-14.5); White Blood Count 9.5 K/mm3 (4.5-10.0)
[2024-01-21] MEDS: ENOXAPARIN 40 MG/0.4 ML SYRINGE SUB-Q (08:30)
[2024-01-21] MEDS: FAMOTIDINE 20 MG/2 ML VIAL IV PUSH ×2 (08:30→20:29)
[2024-01-21] MEDS: IBUPROFEN IV 800 MG/200 ML 800 MG/200 ML BAG 400 MG IVPB (12:42)
--- NOTE | 2024-01-21 15:13 | PM.PNGS ---
Progress Note: A&P Assessment and Plan (1) Diverticulitis of intestine with abscess: Qualifiers: Diverticulitis site: large intestine Diverticulitis bleeding: unspecified bleeding status Qualified Code(s): K57.20 - Diverticulitis of large intestine with perforation and abscess without bleeding Code(s): K57.80 - Diverticulitis of intestine, part unspecified, with perforation and abscess without bleeding Status: Acute Assessment and Plan: doing well, ALLISON barnes, encourage OOB/IS Subjective Subjective Date/Time Seen: 01/21/24 15:13 Interval history: feels good overall, incisional soreness Review of Systems Review of Systems: All systems reviewed & are unremarkable except as noted in HPI and below Exam Const: General: cooperative, comfortable and no acute distress Resp: Auscultation: clear to auscultation bilaterally Cardio: Rate: regular rate Rhythm: regular rhythm GI: Inspection: normal to inspection and non-distended GI Palp: Yes abdominal tenderness, Yes Soft to palpation, Yes Tenderness to palpation present (GI), No Guarding due to palpation present (GI) and No Rigid due to palpation Objective Data Vital Signs Vital Signs: Vital Signs - 24 hr 01/20/24 15:17 01/20/24 15:30 01/20/24 15:45 Temperature 36.3 C L Pulse Rate 81 73 77 Respiratory Rate 16 14 14 Blood Pressure 139/71 137/67 139/76 Pulse Oximetry 97 98 100 Oxygen Delivery Simple Face Mask Simple Face Mask Simple Face Mask Oxygen Flow Rate 8 8 8 01/20/24 16:00 01/20/24 16:15 01/20/24 16:30 Temperature Pulse Rate 62 67 65 Respiratory Rate 14 14 12 Blood Pressure 139/73 133/85 147/83 H Pulse Oximetry 99 100 100 Oxygen Delivery Nasal Cannula Nasal Cannula Nasal Cannula Oxygen Flow Rate 2 2 2 01/20/24 15:19 01/20/24 16:19 01/20/24 20:19 Temperature 36.4 C 36.7 C 36.8 C Pulse Rate 78 86 72 Respiratory Rate 16 12 17 Blood Pressure 143/76 H 136/60 138/50 L Pulse Oximetry 99 95 99 Oxygen Delivery Oxygen Flow Rate 01/20/24 20:00 01/21/24 00:19 01/21/24 03:41 Temperature 36.4 C Pulse Rate 85 Respiratory Rate 18 Blood Pressure 136/64 Pulse Oximetry 99 97 Oxygen Delivery Nasal Cannula Room Air Oxygen Flow Rate 2 01/21/24 04:19 01/21/24 08:19 01/21/24 08:00 Temperature 36.6 C 36.8 C Pulse Rate 70 78 Respiratory Rate 17 18 Blood Pressure 115/52 L 123/53 L Pulse Oximetry 98 98 98 Oxygen Delivery Room Air Oxygen Flow Rate 01/21/24 12:01 Temperature 36.7 C Pulse Rate 77 Respiratory Rate 18 Blood Pressure 113/57 L Pulse Oximetry 98 Oxygen Delivery Oxygen Flow Rate Intake/Output Intake/Output: Intake & Output 01/18/24 01/19/24 01/20/24 01/21/24 23:59 23:59 23:59 23:59 Intake Total 450 3530 Output Total 30 3650 Balance 420 -120 Meds/Results Medications: Active Medications Generic Name Dose Route Start Last Admin Trade Name Freq PRN Reason Stop Dose Admin Hydrocodone Bitart/Acetaminophen 1 tab 01/20/24 14:34 01/21/24 05:21 Hydrocodone/Acetaminophen (*Crx) 5-325 Mg Tablet PO 1 tab Q4H PRN Administration Pain Rated 4-6 Enoxaparin Sodium 40 mg 01/21/24 09:00 01/21/24 08:30 Enoxaparin 40 Mg/0.4 Ml Syringe SUB-Q 40 mg DAILY ALEX Administration Famotidine 20 mg 01/20/24 21:00 01/21/24 08:30 Famotidine 20 Mg/2 Ml Vial IV PUSH 20 mg Q12HR ALEX Administration Hydromorphone HCl 1 mg 01/20/24 14:34 01/21/24 08:30 Hydromorphone Hcl Inj (*Crx) 1 Mg/Ml Syr IV PUSH 1 mg Q2H PRN Administration Breakthrough Pain Rated 7-10 or NPO Hydromorphone HCl 0.5 mg 01/20/24 14:34 Hydromorphone Hcl Inj (*Crx) 1 Mg/Ml Syr IV PUSH Q2H PRN Breakthrough Pain Rated 4-6 or NPO Lactated Ringer's 1,000 mls @ 100 mls/hr 01/20/24 14:35 01/21/24 15:12 Lr - Lactated Ringers Iv IV CONT 100 mls/hr .Q10H ALEX Administration Ibuprofen 800 mg in 200 mls @ 400 mls/hr 01/20/24 14:34 01/20/
[2024-01-21] MEDS: diphenhydrAMINE HCl CAP 25 MG CAPSULE PO (19:54)
[2024-01-22] MEDS: LACTATED RINGERS 1,000 ML 100 ML IV CONT ×3 (01:21→21:05)
[2024-01-22 03:45] VITALS: BP 134/67; PULSE 82; RESP 20; TEMP 36.4; O2SAT 10
[2024-01-22] MEDS: HYDROcodone/acetaminophen (*CRX) 5-325 MG TABLET 1 TAB PO ×3 (04:00→18:16)
[2024-01-22] MEDS: diphenhydrAMINE HCl CAP 25 MG CAPSULE PO ×3 (04:02→18:16)
[2024-01-22] MEDS: LEVOTHYROXINE SODIUM 75 MCG TABLET PO (05:37)
[2024-01-22] MEDS: ENOXAPARIN 40 MG/0.4 ML SYRINGE SUB-Q (09:09)
[2024-01-22] MEDS: FAMOTIDINE 20 MG/2 ML VIAL IV PUSH ×2 (09:09→20:21)
[2024-01-22] MEDS: TIMOLOL MALEATE 0.5% OP SOLN 5 ML BOTTLE 1 DROP EACH EYE ×2 (09:10→20:21)
[2024-01-22] MEDS: cycloSPORINE 0.4 ML OPHTH SOLUTION 1 DROP EACH EYE ×2 (09:10→20:21)
[2024-01-22] MEDS: BRIMONIDINE TARTRATE 0.2% OP SOLN 5 ML BTL 1 DROP EACH EYE ×2 (09:10→20:21)
--- NOTE | 2024-01-22 12:26 | PM.PNGS ---
Progress Note: A&P Assessment and Plan (1) Diverticulitis of intestine with abscess: Qualifiers: Diverticulitis site: large intestine Diverticulitis bleeding: unspecified bleeding status Qualified Code(s): K57.20 - Diverticulitis of large intestine with perforation and abscess without bleeding Code(s): K57.80 - Diverticulitis of intestine, part unspecified, with perforation and abscess without bleeding Status: Acute Assessment and Plan: cont routine postop care, ADAT, OOB/IS Subjective Subjective Date/Time Seen: 01/22/24 12:26 Interval history: feels ok, some burning and incisional pain Review of Systems Review of Systems: All systems reviewed & are unremarkable except as noted in HPI and below Exam Const: General: cooperative, comfortable and no acute distress Resp: Auscultation: clear to auscultation bilaterally Cardio: Rate: regular rate Rhythm: regular rhythm GI: Inspection: normal to inspection, distended and incision GI Palp: Yes abdominal tenderness, Yes Soft to palpation and Yes Tenderness to palpation present (GI) Objective Data Vital Signs Vital Signs: Vital Signs - 24 hr 01/21/24 16:17 01/21/24 20:48 01/21/24 21:30 Temperature 36.6 C 36.0 C L Pulse Rate 69 83 Respiratory Rate 16 20 Blood Pressure 130/58 L 127/53 L Pulse Oximetry 98 100 99 Oxygen Delivery Room Air 01/21/24 20:30 01/22/24 03:45 Temperature 36.4 C Pulse Rate 82 Respiratory Rate 20 Blood Pressure 134/67 Pulse Oximetry 10 L Oxygen Delivery Room Air Intake/Output Intake/Output: Intake & Output 01/19/24 01/20/24 01/21/24 01/22/24 23:59 23:59 23:59 23:59 Intake Total 450 4520 2963.3 Output Total 30 3650 Balance 705 480 2373.3 Meds/Results Medications: Active Medications Generic Name Dose Route Start Last Admin Trade Name Freq PRN Reason Stop Dose Admin Hydrocodone Bitart/Acetaminophen 1 tab 01/20/24 14:34 01/22/24 11:01 Hydrocodone/Acetaminophen (*Crx) 5-325 Mg Tablet PO 1 tab Q4H PRN Administration Pain Rated 4-6 Artificial Tears 1 drop 01/22/24 09:00 01/22/24 09:18 Artificial Tears Ophth Soln 15 Ml Bottle EACH EYE 02/21/24 08:59 Not Given QID ALEX Brimonidine Tartrate 1 drop 01/22/24 09:00 01/22/24 09:10 Brimonidine Tartrate 0.2% Op Soln 5 Ml Btl EACH EYE 1 drop Q12HR ALEX Administration Cyclosporine 1 drop 01/22/24 09:00 01/22/24 09:10 Cyclosporine 0.4 Ml Ophth Solution EACH EYE 1 drop Q12HR ALEX Administration Diphenhydramine HCl 25 mg 01/21/24 19:42 01/22/24 11:01 Diphenhydramine Hcl Cap 25 Mg Capsule PO 25 mg Q6H PRN Administration Itching Enoxaparin Sodium 40 mg 01/21/24 09:00 01/22/24 09:09 Enoxaparin 40 Mg/0.4 Ml Syringe SUB-Q 40 mg DAILY ALEX Administration Famotidine 20 mg 01/20/24 21:00 01/22/24 09:09 Famotidine 20 Mg/2 Ml Vial IV PUSH 20 mg Q12HR ALEX Administration Hydromorphone HCl 1 mg 01/20/24 14:34 01/21/24 08:30 Hydromorphone Hcl Inj (*Crx) 1 Mg/Ml Syr IV PUSH 1 mg Q2H PRN Administration Breakthrough Pain Rated 7-10 or NPO Hydromorphone HCl 0.5 mg 01/20/24 14:34 Hydromorphone Hcl Inj (*Crx) 1 Mg/Ml Syr IV PUSH Q2H PRN Breakthrough Pain Rated 4-6 or NPO Lactated Ringer's 1,000 mls @ 100 mls/hr 01/20/24 14:35 01/22/24 11:05 Lr - Lactated Ringers Iv IV CONT 100 mls/hr .Q10H ALEX Administration Ibuprofen 800 mg in 200 mls @ 400 mls/hr 01/20/24 14:34 01/21/24 13:12 Caldolor 800 Mg/200 Ml IVPB Infused Q6H PRN Infusion Breakthrough Pain Rated 1-3 or NPO Latanoprost 1 drop 01/22/24 21:00 Latanoprost 0.005% Op Soln 2.5 Ml Btl EACH EYE 02/21/24 20:59 HS ALEX Levothyroxine Sodium 75 mcg 01/22/24 06:30 01/22/24 05:37 Levothyroxine Sodium 75 Mcg Tablet PO 75 mcg DAILY@0630 ALEX Administration Naloxone HCl 0.1 mg 01/20/24 14:34 Naloxone Hcl 0.4 Mg/Ml Vial IV PUSH Q2M PRN
[2024-01-22 14:00] VITALS: BP 127/59; PULSE 90; RESP 16; TEMP 37.2; O2SAT 98
[2024-01-22] MEDS: LATANOPROST 0.005% OP SOLN 2.5 ML BTL 1 DROP EACH EYE (20:21)
[2024-01-22 20:27] VITALS: BP 141/66; PULSE 93; RESP 16; TEMP 36.9; O2SAT 97
[2024-01-22 21:05] VITALS: O2SAT 96
[2024-01-22] MEDS: HYDROmorphone HCL INJ (*CRX) 1 MG/ML SYR IV PUSH (21:07)
[2024-01-23 05:16] VITALS: BP 134/66; PULSE 81; RESP 14; TEMP 36.9; O2SAT 97
[2024-01-23] MEDS: LEVOTHYROXINE SODIUM 75 MCG TABLET PO (05:30)
[2024-01-23] MEDS: diphenhydrAMINE HCl CAP 25 MG CAPSULE PO (05:34)
[2024-01-23] MEDS: HYDROcodone/acetaminophen (*CRX) 5-325 MG TABLET 1 TAB PO ×3 (05:34→17:37)
[2024-01-23 08:04] VITALS: BP 134/60; PULSE 72; RESP 16; TEMP 36.7; O2SAT 100
[2024-01-23] MEDS: ENOXAPARIN 40 MG/0.4 ML SYRINGE SUB-Q (09:37)
[2024-01-23] MEDS: FAMOTIDINE 20 MG/2 ML VIAL IV PUSH ×2 (09:37→20:04)
[2024-01-23] MEDS: cycloSPORINE 0.4 ML OPHTH SOLUTION 1 DROP EACH EYE ×2 (09:38→20:04)
[2024-01-23] MEDS: TIMOLOL MALEATE 0.5% OP SOLN 5 ML BOTTLE 1 DROP EACH EYE ×2 (09:40→20:06)
[2024-01-23] MEDS: BRIMONIDINE TARTRATE 0.2% OP SOLN 5 ML BTL 1 DROP EACH EYE ×2 (09:40→20:06)
[2024-01-23] MEDS: LACTATED RINGERS 1,000 ML 100 ML IV CONT ×2 (09:41→17:38)
--- NOTE | 2024-01-23 10:01 | PM.PNGS ---
Progress Note: A&P Assessment and Plan (1) Diverticulitis: Code(s): K57.92 - Diverticulitis of intestine, part unspecified, without perforation or abscess without bleeding Status: Acute Assessment and Plan: doing well, exam largely benign, encourage OOB/IS, home in am c po analgesia Subjective Subjective Date/Time Seen: 01/23/24 10:01 Interval history: feels pretty good, still some incisional pain and burnig luis c movement Review of Systems Review of Systems: All systems reviewed & are unremarkable except as noted in HPI and below Exam Const: General: cooperative, comfortable and no acute distress Resp: Auscultation: clear to auscultation bilaterally Cardio: Rate: regular rate Rhythm: regular rhythm GI: Inspection: normal to inspection, distended and incision GI Palp: Yes abdominal tenderness, Yes Soft to palpation, Yes Tenderness to palpation present (GI), No Guarding due to palpation present (GI) and No Rigid due to palpation Objective Data Vital Signs Vital Signs: Vital Signs - 24 hr 01/22/24 14:00 01/22/24 19:42 01/22/24 20:27 Temperature 37.2 C 36.9 C Pulse Rate 90 93 Respiratory Rate 16 16 Blood Pressure 127/59 L 141/66 H Pulse Oximetry 98 97 Oxygen Delivery Room Air 01/22/24 21:05 01/23/24 05:16 01/23/24 08:04 Temperature 36.9 C 36.7 C Pulse Rate 81 72 Respiratory Rate 14 16 Blood Pressure 134/66 134/60 Pulse Oximetry 96 97 100 Oxygen Delivery Room Air Intake/Output Intake/Output: Intake & Output 01/20/24 01/21/24 01/22/24 01/23/24 23:59 23:59 23:59 23:59 Intake Total 450 4520 5783.3 1400 Output Total 30 3650 Balance 441 707 6366.3 1400 Meds/Results Medications: Active Medications Generic Name Dose Route Start Last Admin Trade Name Freq PRN Reason Stop Dose Admin Hydrocodone Bitart/Acetaminophen 1 tab 01/20/24 14:34 01/23/24 09:43 Hydrocodone/Acetaminophen (*Crx) 5-325 Mg Tablet PO 1 tab Q4H PRN Administration Pain Rated 4-6 Artificial Tears 1 drop 01/22/24 09:00 01/23/24 09:40 Artificial Tears Ophth Soln 15 Ml Bottle EACH EYE 02/21/24 08:59 Not Given QID ALEX Brimonidine Tartrate 1 drop 01/22/24 09:00 01/23/24 09:40 Brimonidine Tartrate 0.2% Op Soln 5 Ml Btl EACH EYE 1 drop Q12HR ALEX Administration Cyclosporine 1 drop 01/22/24 09:00 01/23/24 09:38 Cyclosporine 0.4 Ml Ophth Solution EACH EYE 1 drop Q12HR ALEX Administration Diphenhydramine HCl 25 mg 01/21/24 19:42 01/23/24 05:34 Diphenhydramine Hcl Cap 25 Mg Capsule PO 25 mg Q6H PRN Administration Itching Enoxaparin Sodium 40 mg 01/21/24 09:00 01/23/24 09:37 Enoxaparin 40 Mg/0.4 Ml Syringe SUB-Q 40 mg DAILY ALXE Administration Famotidine 20 mg 01/20/24 21:00 01/23/24 09:37 Famotidine 20 Mg/2 Ml Vial IV PUSH 20 mg Q12HR ALEX Administration Hydromorphone HCl 1 mg 01/20/24 14:34 01/22/24 21:07 Hydromorphone Hcl Inj (*Crx) 1 Mg/Ml Syr IV PUSH 1 mg Q2H PRN Administration Breakthrough Pain Rated 7-10 or NPO Hydromorphone HCl 0.5 mg 01/20/24 14:34 Hydromorphone Hcl Inj (*Crx) 1 Mg/Ml Syr IV PUSH Q2H PRN Breakthrough Pain Rated 4-6 or NPO Lactated Ringer's 1,000 mls @ 100 mls/hr 01/20/24 14:35 01/23/24 09:41 Lr - Lactated Ringers Iv IV CONT 100 mls/hr .Q10H ALEX Administration Ibuprofen 800 mg in 200 mls @ 400 mls/hr 01/20/24 14:34 01/21/24 13:12 Caldolor 800 Mg/200 Ml IVPB Infused Q6H PRN Infusion Breakthrough Pain Rated 1-3 or NPO Latanoprost 1 drop 01/22/24 21:00 01/22/24 20:21 Latanoprost 0.005% Op Soln 2.5 Ml Btl EACH EYE 06/21/24 20:59 1 drop HS ALEX Administration Levothyroxine Sodium 75 mcg 01/22/24 06:30 01/23/24 05:30 Levothyroxine Sodium 75 Mcg Tablet PO 75 mcg DAILY@0630 ALEX Administration Naloxone HCl 0.1 mg 01/20/24 14:34 Naloxone Hcl 0.4 Mg/Ml Vial IV PUSH Q2M PRN Opiate Reversal Ondansetron
[2024-01-23 13:38] VITALS: BP 133/61; PULSE 78; RESP 16; TEMP 36.6; O2SAT 99
[2024-01-23 17:34] VITALS: BP 156/88; PULSE 79; RESP 17; TEMP 36.9; O2SAT 100
[2024-01-23 19:34] VITALS: BP 149/63; PULSE 74; RESP 18; TEMP 36.6; O2SAT 99
[2024-01-23] MEDS: LATANOPROST 0.005% OP SOLN 2.5 ML BTL 1 DROP EACH EYE (20:05)
[2024-01-23] MEDS: HYDROmorphone HCL INJ (*CRX) 1 MG/ML SYR 0.5 MG IV PUSH (23:25)
[2024-01-24] MEDS: LEVOTHYROXINE SODIUM 75 MCG TABLET PO (05:13)
[2024-01-24 05:28] VITALS: BP 147/81; PULSE 75; RESP 17; TEMP 36.8; O2SAT 96
[2024-01-24 09:16] LABS: Basophils Percent Auto 0.5 % (0.2-1.2); Eosinophils Absolute Auto 0.2 K/mm3 (0-0.3); Eosinophils Percent Auto 3.1 % (0-4.4); Hematocrit 32.9 % (37.0-47.0); Hemoglobin 10.3 g/dL (12.0-15.0); Immature Granulocyte Absolute 0.04 K/mm3 (0.00-0.031); Immature Granulocyte Percent A 0.7 % (0-0.5); Lymphocytes Absolute Auto 0.79 K/mm3 (0.9-3.2); Mean Corpuscular HGB Conc 31.3 g/dl (32-36); Mean Corpuscular Hemoglobin 29.8 pg (26-34); Mean Corpuscular Volume 95.1 fl (80-100); Mean Platelet Volume 9.2 fl (7.4-10.4); Monocytes Absolute Auto 0.5 K/mm3 (0.1-0.6); Monocytes Percent Auto 7.8 % (2.6-8.5); Neutrophils Absolute Auto 4.5 K/mm3 (1.3-6.7); Neutrophils Percent Auto 74.9 % (45.5-73.1); Platelet Count Result 209 k/mm3 (150-375); Red Blood Count 3.46 M/mm3 (4.2-5.4); Red Cell Distribution Width 15.4 % (11.5-14.5); White Blood Count 6.1 K/mm3 (4.5-10.0)
[2024-01-24 09:30] LABS: Alanine Aminotransferase 56 U/L (6-35); Albumin Level 3.8 g/dL (3.5-5.1); Alkaline Phosphatase 78 U/L (38-126); Anion Gap 4 mmol/L (4-12); Aspartate Amino Transferase 59 U/L (14-36); Bilirubin,Total 0.5 mg/dL (0.2-1.3); Blood Urea Nitrogen 16 mg/dL (7-17); Calcium 9.5 mg/dL (8.4-10.2); Carbon Dioxide 32 mmol/L (22-30); Chloride 102 mmol/L (98-107); Estimated CRCL calculation 59 ml/min; Estimated Glomerular Filt Rate > 60; Glucose 123 mg/dL (65-110); Potassium 4.1 mmol/L (3.4-5.0); Sodium 138 mmol/L (137-145)
[2024-01-24] MEDS: ENOXAPARIN 40 MG/0.4 ML SYRINGE SUB-Q (09:44)
[2024-01-24] MEDS: FAMOTIDINE 20 MG/2 ML VIAL IV PUSH (09:44)
[2024-01-24] MEDS: cycloSPORINE 0.4 ML OPHTH SOLUTION 1 DROP EACH EYE (09:44)
[2024-01-24] MEDS: BRIMONIDINE TARTRATE 0.2% OP SOLN 5 ML BTL 1 DROP EACH EYE (09:45)
[2024-01-24] MEDS: TIMOLOL MALEATE 0.5% OP SOLN 5 ML BOTTLE 1 DROP EACH EYE (09:45)
[2024-01-24] MEDS: HYDROcodone/acetaminophen (*CRX) 5-325 MG TABLET 1 TAB PO (10:06)
[2024-01-24 10:08] VITALS: BP 143/65; PULSE 86; RESP 16; TEMP 36.9; O2SAT 95
--- NOTE | 2024-01-24 10:18 | PM.DS ---
DS: Admitting Diagnosis Discharge Date 01/24/2024 Admitting Diagnosis complicated diverticulitis with abscess DS: Discharge Diagnosis Discharge Diagnosis (1) Diverticulitis of intestine with abscess: Qualifiers: Diverticulitis site: large intestine Diverticulitis bleeding: unspecified bleeding status Qualified Code(s): K57.20 - Diverticulitis of large intestine with perforation and abscess without bleeding Code(s): K57.80 - Diverticulitis of intestine, part unspecified, with perforation and abscess without bleeding Status: Acute Assessment and Plan: status post sigmoid colectomy, doing well, continue routine postoperative care, home with p.o. analgesia, path reviewed, follow-up 2 weeks DS: Summary Hospital Course Reason for hospitalization: complicated diverticulitis with abscess Hospital Course: The patient is a 68-year-old female well known to my service from previous admission with complicated diverticulitis and abscess. The patient was set up for interval sigmoid colectomy. On 01/19 the patient was taken to the operating and hand assisted laparoscopic sigmoid colectomy was performed. Please see full operative report for details of that procedure. Operatively the patient did well and was transferred to the surgical floor. Over the next few days the patient continued to improve having her Perez removed and having her diet advanced. She did complain of incisional pain which was able to be controlled with both p.o. and IV analgesia. The patient was up and ambulating without difficulty. Today the patient is tolerating a diet and having normal bowel function. Pain is well controlled with p.o. analgesia. She will be discharged home with p.o. analgesia. She will follow-up with me in 2 weeks. Status at Discharge Functional status at discharge: independent ambulation Overall status at discharge: patient is progressing back to baseline Time Spent with Patient Time attestation: Total time spent providing and/or coordinating discharge services: Time spent: Less than 30 minutes Exam Const: General: cooperative, comfortable and no acute distress Resp: Auscultation: clear to auscultation bilaterally Cardio: Rate: regular rate Rhythm: regular rhythm GI: Inspection: normal to inspection, distended and incision GI Palp: Yes abdominal tenderness, Yes Soft to palpation, Yes Tenderness to palpation present (GI), No Guarding due to palpation present (GI) and No Rigid due to palpation DS: Data Data Completed and Pending Completed studies during hospitalization: Pending at discharge 01/20/24 14:42 Surgical [PTH] Routine Labs on day of discharge: Labs from last 24 hours 01/24/24 09:06 WBC 6.1 RBC 3.46 L Hgb 10.3 L Hct 32.9 L MCV 95.1 MCH 29.8 MCHC 31.3 L RDW 15.4 H Plt Count 209 MPV 9.2 Immature Gran % (Auto) 0.7 H Neut % (Auto) 74.9 H Lymph % (Auto) 13.0 L Cameron % (Auto) 7.8 Eos % (Auto) 3.1 Baso % (Auto) 0.5 Lymph # (Auto) 0.79 L Cameron # (Auto) 0.5 Eos # (Auto) 0.2 Baso # (Auto) 0.0 Abs Immat Gran (auto) 0.04 H Absolute Neuts (auto) 4.5 Absolute Nucleated RBC 0.000 Nucleated RBC % 0.0 Sodium 138 Potassium 4.1 Chloride 102 Carbon Dioxide 32 H Anion Gap 4 BUN 16 Creatinine 0.80 Estim Creat Clear Calc 59 Estimated GFR > 60 Glucose 123 H Calcium 9.5 Total Bilirubin 0.5 AST 59 H ALT 56 H Alkaline Phosphatase 78 Total Protein 7.0 Albumin 3.8 Discharge Plan Discharge Attending physician on discharge: Sylvie Frazier Discharging Clinician: Sylvie Frazier Anticipated Discharge Date/Time: 01/24/24 13:00 Patient Disposition: Home, Self-Care Activity: no straining Diet: as tolerated Patient Instructions: Antibiotic Form Stand Alone Forms: General Discharge Information Follow-up/Referrals: Sylvie Frazier MD [Physician] - 2 Weeks Discharge Medications: New hydrocodone-acetaminophen 5-325 mg tab
== END 2024-01-24 12:00 | disposition home or self-care (01) | DRG 331 ==
LOC: ANH2MED 16:42
PROVIDERS: Admitting Provider Surgery; PCP Nurse Practitioner Family; Visit Provider Surgery
PROC: 0D1E4Z4 Bypass Large Intestine to Cutaneous, Percutaneous Endoscopic Approach (ICD-10-PCS; principal; 2024-01-20 12:00)
DX: K57.20 Diverticulitis of large intestine with perforation and abscess without bleeding (principal); K21.9 Gastro-esophageal reflux disease without esophagitis; H40.9 Unspecified glaucoma; E78.5 Hyperlipidemia, unspecified; E03.9 Hypothyroidism, unspecified; D50.9 Iron deficiency anemia, unspecified; M19.90 Unspecified osteoarthritis, unspecified site; Z90.49 Acquired absence of other specified parts of digestive tract
CPT/HCPCS: 36415; 80048; 80053; 85025; 85027; 88307; A9270; C1729; J0690; J1100; J1170; J1650; J1741; J1885; J2250; J2405; J2704; J3010; J7030; J7120

== ENCOUNTER 2024-04-14 14:05 | Outpatient (CLI) | payer MEDICARE, SELFPAY ==
--- NOTE | ~2024-04-14 | CT_ITS ---
EXAMINATION: CT abdomen pelvis wo con DATE: 04/14/2024 14:27 INDICATION: Diverticulitis of intestine, part unspecified. Pain with sitting. TECHNIQUE: Computed tomography (CT) of the abdomen and pelvis was performed without intravenous contr ast. Automated exposure control and iterative reconstruction technique were employed. The dose-length product was 578.78 mGy-cm. COMPARISON: CT abdomen and pelvis 12/11/2023 FINDINGS: The visualized portions of the lung bases demonstrate mild atelectasis. No pleural effusion . The heart size is normal. No pericardial effusion. There are bilateral breast implants. There is di ffuse hepatic steatosis. There are changes of cholecystectomy. The spleen, pancreas, adrenal glands, and kidneys are normal. There is no urolithiasis. There is an anastomosis of the sigmoid colon. There is diverticulosis of the colon without evidence of diverticulitis. There are no dilated loops of bow el. The appendix is normal. There is a periumbilical ventral hernia containing fat. There are no path ologically enlarged lymph nodes. There is no free intraperitoneal fluid. There is severe lumbar spond ylosis. IMPRESSION: 1. Periumbilical ventral hernia containing fat. Reviewed, dictated and finalized at location A.
== END 2024-04-14 14:06 | disposition home or self-care (01) ==
PROVIDERS: PCP Nurse Practitioner Family; Visit Provider Surgery
DX: K43.9 Ventral hernia without obstruction or gangrene (principal); K57.80 Diverticulitis of intestine, part unspecified, with perforation and abscess without bleeding
CPT/HCPCS: 74176

== ENCOUNTER 2024-04-16 04:56 | Emergency (ER) | payer MEDICARE, SELFPAY ==
[2024-04-16] VITALS (16 sets, daily range): BP systolic 107–160; BP diastolic 61–84; PULSE 59–78; RESP 11–22; TEMP 36.5; O2SAT 93–100
--- NOTE | ~2024-04-16 | CT_ITS ---
EXAMINATION: CTA chest PE protocol DATE: 04/16/2024 07:19 INDICATION: Chest pain and shortness of breath. TECHNIQUE: Computed tomography angiography (CTA) of the chest was performed with 100 mL Omnipaque-350 intravenous contrast timed to evaluate the pulmonary arteries. Coronal maximum intensity projection 3D-reconstructions were created by the technologist. Automated exposure control and iterative reconst ruction technique were employed. The dose-length product was 346.55 mGy-cm. COMPARISON: Chest CT 06/14/2022 FINDINGS: There is mild scarring at the lung apices. There is mild dependent atelectasis bilaterally. No pleural effusion. The heart size is normal. No pericardial effusion. There is no pulmonary embolu s. There are bilateral breast implants. There is mild thoracic spondylosis. IMPRESSION: 1. No pulmonary embolus. Reviewed, dictated and finalized at location A. IMPRESSION: 1. No pulmonary embolus.
--- NOTE | ~2024-04-16 | XR_ITS ---
EXAMINATION: XR chest 2V DATE: 04/16/2024 05:59 INDICATION: Left chest pain. TECHNIQUE: Frontal and lateral views of the chest were obtained. COMPARISON: Chest 2 views 06/14/2022 FINDINGS: There is mild scarring at the lung apices. No pleural effusion, or pneumothorax. The heart size is normal. Surgical clips in the right upper quadrant are likely from cholecystectomy. IMPRESSION: 1. Stable mild scarring at the lung apices. Reviewed, dictated and finalized at location A.
--- NOTE | 2024-04-16 05:00 | ECG_ITS ---
Test Date: 2024-04-16 05:04:13 Measurements Intervals [place] Rate: 65 P: 39 [place]: 157 QRS: -20 QRSD: 89 T: 19 QT: 399 QTc: 417 Interpretive Statements SINUS RHYTHM LOW QRS VOLTAGE IN PRECORDIAL LEADS [QRS DEFLECTION < 1.0 mV IN CHEST LEADS] ANTEROSEPTAL MYOCARDIAL INFARCTION , OF INDETERMINATE AGE [40+ ms Q WAVE IN V1-V4] No previous ECG available for comparison Electronically Signed On 04-16-2024 09:56:55 CDT by Hoang Winston M.D.
--- NOTE | 2024-04-16 05:10 | ED.CHESTPAIN ---
HPI - Chest Pain General Chief Complaint: Chest Pain <Korin Tilley MD - Last Filed: 04/16/24 18:44> Stated Complaint: chest pain <Korin Tilley MD - Last Filed: 04/16/24 18:44> Time Seen by Provider: 04/16/24 05:10 <Korin Tilley MD - Last Filed: 04/16/24 18:44> Source: patient and family <Korin Tilley MD - Last Filed: 04/16/24 18:44> Mode of arrival: ambulatory <Korin Tilley MD - Last Filed: 04/16/24 18:44> Limitations: no limitations <Korin Tilley MD - Last Filed: 04/16/24 18:44> History of Present Illness HPI narrative: Frida presents with CP. She has a chronic dry cough no changes recently. With this episode she did feel short of breath. She denies any nausea or vomiting. Pain is described as a squeezing, nonradiating occurring in the middle of her chest and described as 8/10 in severity. She states this happens approximately 2x/year. Patient states there was concern about a decade ago that she had had a myocardial infarction based on EKG. Multiple EKGs were performed as well as a stress test however was ultimately declared that she did not have a myocardial infarction and patient has no stents. She does not regularly follow with a supervisor [employer]. She has a history of mitral valve prolapse which she previously been taking medications for but these were discontinued. She has a history of a DVT in her right lower extremity in the 19 70s for which she had been on anticoagulation at 1 point but this was discontinued. Her sister of a pulmonary embolism 2 years ago. No immediate family history of myocardial infarction <65yo though she did have a cousin who his 40s or 50s. Patient has hyperlipidemia for which she takes atorvastatin. No diagnosis of hypertension, nonsmoker, no prior history of TIA/CVA/CAD/PAD. <Korin Tilley MD - Last Filed: 04/16/24 18:44> Related Data Home Medications: Home Medications Medication Instructions Recorded Confirmed [place] 3 Fish Oil 1,000 mg PO DAILY 05/03/23 04/07/24 One-A-Day 50 Plus 1 tablet PO HS 05/03/23 04/07/24 Retaine MGD (PF) 1 drp EACH EYE QID 05/03/23 04/07/24 atorvastatin 10 mg tablet 10 mg PO HS 05/03/23 04/07/24 brimonidine 0.2 %-timolol 0.5 % 1 drp EACH EYE BID 05/03/23 04/07/24 eye drops (Combigan) cyclosporine 0.05 % eye drops in a 1 drp EACH EYE BID 05/03/23 04/07/24 dropperette (Restasis) meloxicam 15 mg tablet 15 mg PO DAILY 05/03/23 04/07/24 prednisolone acetate 1 % eye 1 drp EACH EYE PRN PRN Eye 05/03/23 04/07/24 drops,suspension Irritation travoprost 0.004 % eye drops 1 drp EACH EYE HS 05/03/23 04/07/24 (Travatan Z) Ocuvite Adult 50 Plus 1 tablet BYMOUTH DAILY 05/04/23 04/07/24 Tumeric 1 tablet BYMOUTH DAILY 11/05/23 04/07/24 doxycycline monohydrate 100 mg 100 mg PO DAILY 11/05/23 04/07/24 tablet ascorbate calcium (vitamin C) 500 500 mg PO HS 11/29/23 04/07/24 mg tablet cholecalciferol (vitamin D3) 50 50 mcg PO DAILY 01/13/24 04/07/24 mcg (2,000 unit) tablet lactobacillus combination no.8 3 3 cell PO DAILY 01/13/24 04/07/24 billion cell capsule varenicline 0.03 mg/spray nasal 1 spray intranasal BID 01/13/24 04/07/24 spray (Tyrvaya) <Korin Tilley MD - Last Filed: 04/16/24 18:44> Allergies/Adverse Reactions: Allergies Allergy/AdvReac Type Severity Reaction Status Date / Time naproxen AdvReac Unknown Nausea and Verified 04/16/24 05:12 Vomiting adhesive tape AdvReac Other Verified 04/16/24 05:12 <Korin Tilley MD - Last Filed: 04/16/24 18:44> [facility] Past Medical History Medical History: Medical History Bronchitis Constipation Depression Diverticulitis Elevated liver enzymes secondary to gallstone, LFTs returned to baseline. 05/03-05/08 admission. GERD (gastroesophageal reflux disease) Glaucoma History of stress test 2011 HLD (hyperlipidemia) Hyp
[2024-04-16 05:11] LABS: Basophils Percent Auto 0.5 % (0.2-1.2); Eosinophils Absolute Auto 0.2 K/mm3 (0-0.3); Eosinophils Percent Auto 3.8 % (0-4.4); Hematocrit 36.7 % (37.0-47.0); Hemoglobin 12.2 g/dL (12.0-15.0); Immature Granulocyte Absolute 0.02 K/mm3 (0.00-0.031); Immature Granulocyte Percent A 0.3 % (0-0.5); Lymphocytes Percent Auto 31.1 % (18.3-44.2); Mean Corpuscular HGB Conc 33.2 g/dl (32-36); Mean Corpuscular Hemoglobin 31.1 pg (26-34); Mean Corpuscular Volume 93.6 fl (80-100); Mean Platelet Volume 9.3 fl (7.4-10.4); Monocytes Absolute Auto 0.6 K/mm3 (0.1-0.6); Monocytes Percent Auto 9.7 % (2.6-8.5); Neutrophils Absolute Auto 3.2 K/mm3 (1.3-6.7); Neutrophils Percent Auto 54.6 % (45.5-73.1); Platelet Count Result 215 k/mm3 (150-375); Red Blood Count 3.92 M/mm3 (4.2-5.4); Red Cell Distribution Width 12.9 % (11.5-14.5); White Blood Count 5.8 K/mm3 (4.5-10.0)
[2024-04-16] MEDS: ASPIRIN 81 MG CHEWABLE TABLET 324 MG PO (05:13)
[2024-04-16 05:21] LABS: INR 0.9; Prothrombin Time 12.6 Seconds (11.1-14.7)
[2024-04-16 05:22] LABS: Alanine Aminotransferase 25 U/L (6-35); Albumin Level 4.2 g/dL (3.5-5.1); Alkaline Phosphatase 92 U/L (38-126); Anion Gap 10 mmol/L (4-12); Aspartate Amino Transferase 35 U/L (14-36); Bilirubin,Total 0.3 mg/dL (0.2-1.3); Blood Urea Nitrogen 35 mg/dL (7-17); Calcium 9.6 mg/dL (8.4-10.2); Carbon Dioxide 25 mmol/L (22-30); Chloride 102 mmol/L (98-107); Estimated CRCL calculation 41 ml/min; Estimated Glomerular Filt Rate 41; Glucose 110 mg/dL (65-110); Lipase 385 U/L (23-300); Partial Thromboplastin Time 26.8 Seconds (22.3-36.8); Sodium 137 mmol/L (137-145)
[2024-04-16 05:34] LABS: Troponin I < 0.012 ng/mL (0.000-0.034)
[2024-04-16] MEDS: SODIUM CHLORIDE 0.9% IV 1,000 ML 999 ML IV CONT ×2 (05:37→07:35)
[2024-04-16 06:10] LABS: NT Pro B Type Natriuretic Pept 141 pg/mL (19.9-100)
[2024-04-16 06:54] LABS: D Dimer 1.32 ug/mL (<0.48)
--- NOTE | 2024-04-16 07:42 | ECG_ITS ---
Test Date: 2024-04-16 07:46:18 Measurements Intervals [place] Rate: 63 P: 47 [place]: 179 QRS: -15 QRSD: 94 T: 26 QT: 436 QTc: 448 Interpretive Statements SINUS RHYTHM LOW QRS VOLTAGE IN PRECORDIAL LEADS [QRS DEFLECTION < 1.0 mV IN CHEST LEADS] POSSIBLE ANTERIOR MYOCARDIAL INFARCTION , PROBABLY OLD [30 ms Q WAVE IN V3/V4, OR R < 0.2 mV IN V4] INFERIOR MYOCARDIAL INFARCTION , PROBABLY OLD [40+ ms Q WAVE AND/OR ST/T ABNORMALITY IN II/aVF] Compared to ECG 04/16/2024 05:04:13 No significant changes Electronically Signed On 04-16-2024 09:58:43 CDT by Hoang Winston M.D.
[2024-04-16 08:00] LABS: Anion Gap 7 mmol/L (4-12); Blood Urea Nitrogen 33 mg/dL (7-17); Calcium 8.5 mg/dL (8.4-10.2); Carbon Dioxide 27 mmol/L (22-30); Chloride 101 mmol/L (98-107); Estimated CRCL calculation 45 ml/min; Estimated Glomerular Filt Rate 45; Glucose 96 mg/dL (65-110); Potassium 3.9 mmol/L (3.4-5.0); Sodium 135 mmol/L (137-145)
[2024-04-16 08:11] LABS: Troponin I < 0.012 ng/mL (0.000-0.034)
== END 2024-04-16 08:34 | disposition home or self-care (01) ==
PROVIDERS: Emergency Provider Student in an Organized Health Care Education/Training Program; PCP Nurse Practitioner Family
DX: N17.9 Acute kidney failure, unspecified (principal); R07.9 Chest pain, unspecified; R06.02 Shortness of breath; K21.9 Gastro-esophageal reflux disease without esophagitis; E03.9 Hypothyroidism, unspecified; M19.90 Unspecified osteoarthritis, unspecified site; R94.31 Abnormal electrocardiogram [ECG] [EKG]; H40.9 Unspecified glaucoma; E78.5 Hyperlipidemia, unspecified; D50.9 Iron deficiency anemia, unspecified; I34.1 Nonrheumatic mitral (valve) prolapse; F32.A Depression, unspecified; Z86.718 Personal history of other venous thrombosis and embolism; Z90.49 Acquired absence of other specified parts of digestive tract; Z79.899 Other long term (current) drug therapy
CPT/HCPCS: 36415; 71046; 71275; 80048; 80053; 83690; 83880; 84484; 85025; 85380; 85610; 85730; 93005; 96360; 99284; A9270; J7030; Q9967

== ENCOUNTER 2024-05-06 13:42 | Outpatient (CLI) | payer MEDICARE, SELFPAY ==
--- NOTE | ~2024-05-06 | MR_ITS ---
EXAMINATION: MR lumbar spine wo/w con DATE: 05/06/2024 14:36 INDICATION: Low back pain, unspecified. TECHNIQUE: Magnetic resonance imaging (MRI) of the lumbar spine was performed without and with 16 mL MultiHance intravenous contrast. COMPARISON: None FINDINGS: Alignment is normal. Vertebral body heights are normal. There is mildly decreased disc heig ht at L2-L3 and L3-L4 and severely decreased disc height at L4-L5. The distal spinal cord signal inte nsity is normal. The conus medullaris is at L1. The following disc levels are specifically discussed: L1-L2: The disc does not extend beyond the endplate margin. There is mild bilateral facet joint osteo arthritis. There is no neural foraminal stenosis. There is no central canal stenosis. L2-L3: The disc is bulging and has an annular fissure. There is mild bilateral facet joint osteoarthr itis. There is mild bilateral neural foraminal stenosis. There is mild central canal stenosis. L3-L4: The disc is bulging and has an annular fissure. There is mild bilateral facet joint osteoarthr itis. There is moderate right and mild left neural foraminal stenosis. There is mild central canal st enosis. L4-L5: The disc is bulging. There is mild right and moderate left facet joint osteoarthritis. There i s moderate bilateral neural foraminal stenosis. There is mild central canal stenosis. L5-S1: The disc is bulging. There is severe bilateral facet joint osteoarthritis. There is mild right and moderate left neural foraminal stenosis. There is mild central canal stenosis. IMPRESSION: 1. Severe lumbar spondylosis. Reviewed, dictated and finalized at location A.
== END 2024-05-06 13:43 | disposition home or self-care (01) ==
PROVIDERS: PCP Nurse Practitioner Family; Visit Provider Surgery
DX: M47.816 Spondylosis without myelopathy or radiculopathy, lumbar region (principal)
CPT/HCPCS: 72158; A9577

== ENCOUNTER 2024-05-08 22:08 | Inpatient (IN) | payer MEDICARE, SELFPAY ==
--- NOTE | ~2024-05-08 | US_ITS ---
EXAMINATION: US right upper quadrant DATE: 05/12/2024 14:26 INDICATION: Abnormal liver function tests. TECHNIQUE: Multiple grayscale and Doppler ultrasound images of the abdomen were obtained. COMPARISON: CT abdomen and pelvis 04/14/2024 FINDINGS: The visualized portions of the head, body, and tail of the pancreas are normal. The liver i s normal without focal lesion. There is normal flow in main portal vein. The gallbladder is absent. T he common duct is normal and measures 9 mm. IMPRESSION: 1. Normal right upper quadrant ultrasound status post cholecystectomy. Reviewed, dictated and finalized at location A.
--- NOTE | ~2024-05-08 | XR_ITS ---
EXAMINATION: XR foot LT 2V DATE: 05/08/2024 22:32 INDICATION: Left toe injury. TECHNIQUE: 2 views of left foot were obtained. COMPARISON: None. FINDINGS: There is an oblique fracture of the medial malleolus. The distal fracture fragment demonstr ates 4 mm lateral displacement. There is an oblique fracture of the distal fibula. The distal fractur e fragment demonstrates 4 mm lateral displacement and 4 mm posterior displacement. There is a fractur e of the posterior malleolus. Joint spaces are normal. There are enthesophytes at the posterior and p lantar aspects of calcaneal tuberosity. IMPRESSION: 1. Trimalleolar ankle fracture. Reviewed, dictated and finalized at location A.
--- NOTE | ~2024-05-08 | XR_ITS ---
XR surgery orthopedic DATE: 05/10/2024 09:29 INDICATION: ORIF trimalleolar fracture/lateral subluxation TECHNIQUE: 3 spot C-arm images of the ankle 28.7 seconds fluoroscopy time 0.2473 Gycm2 COMPARISON: 05/08/2024 left ankle FINDINGS: There are 2 screws extending longitudinally through the medial malleolus into the distal ti bial metaphysis, with anatomic position and alignment at the medial malleolar fracture. Lateral plate and multiple screws of distal fibular shaft and lateral malleolus, with virtually anato dada position and alignment at the lateral malleolar fracture. Posterior malleolar fracture appears near anatomic position. Ankle mortise appears intact. IMPRESSION: ORIF medial and lateral malleolar fractures; near-anatomic position of posterior malleola r fracture. Ankle mortise appears intact Reviewed, dictated and finalized at Location A. Reviewed, dictated and finalized at location A. IMPRESSION: ORIF medial and lateral malleolar fractures; near-anatomic position of posterior malleolar fracture. Ankle mortise appears intact
--- NOTE | ~2024-05-08 | XR_ITS ---
EXAMINATION: XR ankle LT 2V DATE: 05/08/2024 22:32 INDICATION: Left ankle deformity. Fall. TECHNIQUE: 2 views of left ankle were obtained. COMPARISON: None. FINDINGS: There is an oblique fracture of medial malleolus. The distal fracture fragment demonstrates 10 mm lateral displacement. There is a fracture of posterior malleolus. There is an oblique fracture of distal fibula. The distal fracture fragment demonstrates 4 mm posterior displacement. Joint space s are normal. There are enthesophytes at the posterior and plantar aspects of calcaneal tuberosity. IMPRESSION: 1. Trimalleolar ankle fracture. Reviewed, dictated and finalized at location A.
[2024-05-09] VITALS (18 sets, daily range): BP systolic 126–157; BP diastolic 68–97; PULSE 68–80; RESP 15–22; TEMP 36.6–36.9; O2SAT 90–100; BMI 29.0
--- NOTE | 2024-05-09 02:22 | ECG_ITS ---
Test Date: 2024-05-09 02:48:39 Measurements Intervals [place] Rate: 79 P: 58 [place]: 150 QRS: -13 QRSD: 93 T: 32 QT: 380 QTc: 436 Interpretive Statements SINUS RHYTHM BORDERLINE R WAVE PROGRESSION, ANTERIOR LEADS INFERIOR INFARCT, AGE INDETERMINATE BORDERLINE ST ABNORMALITY- HIGH LATERAL LEADS BASELINE ARTIFACT- II, III, AVL, AVF ABNORMAL ECG Compared to ECG 04/16/2024 07:46:18 No significant changes Electronically Signed On 05-09-2024 06:37:00 CDT by Catrachito Bose D.O.
--- NOTE | 2024-05-09 02:33 | ED.LOWEXIN ---
HPI - Extremity Injury (Lower) General Chief Complaint: Extremity Injury, Lower Stated Complaint: L ankle injury Time Seen by Provider: 05/09/24 01:25 History of Present Illness HPI Narrative: 68-year-old female presenting with left ankle injury. States that she was walking down some of her stairs which have carpet on them and she tripped landing on her left foot. States that she heard a loud pop and she fell down to her knees and lowered herself to the ground. She was unable to ambulate. Had immediate swelling of the left ankle. Did not strike her head or lose consciousness. No further injuries or complaints. Related Data Home Medications Medication Instructions Recorded Confirmed [place] 3 Fish Oil 1,000 mg PO DAILY 05/03/23 05/09/24 One-A-Day 50 Plus 1 tablet PO HS 05/03/23 05/09/24 Retaine MGD (PF) 1 drp EACH EYE QID 05/03/23 05/09/24 atorvastatin 10 mg tablet 10 mg PO HS 05/03/23 05/09/24 brimonidine 0.2 %-timolol 0.5 % 1 drp EACH EYE BID 05/03/23 05/09/24 eye drops (Combigan) cyclosporine 0.05 % eye drops in a 1 drp EACH EYE BID 05/03/23 05/09/24 dropperette (Restasis) meloxicam 15 mg tablet 15 mg PO DAILY 05/03/23 05/09/24 prednisolone acetate 1 % eye 1 drp EACH EYE PRN PRN Eye 05/03/23 05/09/24 drops,suspension Irritation travoprost 0.004 % eye drops 1 drp EACH EYE HS 05/03/23 05/09/24 (Travatan Z) Ocuvite Adult 50 Plus 1 tablet BYMOUTH DAILY 05/04/23 05/09/24 Tumeric 1 tablet BYMOUTH DAILY 11/05/23 05/09/24 doxycycline monohydrate 100 mg 100 mg PO DAILY 11/05/23 05/09/24 tablet ascorbate calcium (vitamin C) 500 500 mg PO HS 11/29/23 05/09/24 mg tablet cholecalciferol (vitamin D3) 50 50 mcg PO DAILY 01/13/24 05/09/24 mcg (2,000 unit) tablet lactobacillus combination no.8 3 3 cell PO DAILY 01/13/24 05/09/24 billion cell capsule varenicline 0.03 mg/spray nasal 1 spray intranasal BID 01/13/24 05/09/24 spray (Tyrvaya) Allergies Allergy/AdvReac Type Severity Reaction Status Date / Time naproxen AdvReac Unknown Nausea and Verified 05/07/24 10:00 Vomiting adhesive tape AdvReac Other Verified 05/07/24 10:00 Review of Systems Review of Systems: All systems reviewed & are unremarkable except as noted in HPI and below PMFSH Past Medical History Medical History Bronchitis Constipation Depression Diverticulitis Elevated liver enzymes secondary to gallstone, LFTs returned to baseline. 05/03-05/08 admission. GERD (gastroesophageal reflux disease) Glaucoma History of stress test 2011 HLD (hyperlipidemia) Hypothyroidism Iron deficiency anemia Mitral valve prolapse Nausea & vomiting Osteoarthritis Rectal abscess Rectal pressure Surgical History Surgical History H/O laminectomy History of back surgery 2006 History of breast augmentation History of section History of cholecystectomy 05/06/23 History of colectomy hand assisted laparoscopic sigmoid colectomy with mobilization of the splenic flexure 01/20/24 Family History Family History Mother Cholecystitis Carcinoma of colon Diabetes mellitus Thyroid disease Sibling , 2021 Cholecystitis Postoperative acute deep vein thrombosis (DVT) of lower extremity Pulmonary embolism cause of Father Facial basal cell cancer Grandparent Heart disease Cerebrovascular accident Other Acute myocardial infarction 40s-50s Social History Social History Social History: Currently lives at home with her . Full code. Surrogate decision maker - Meliton Velasco (). Smoking status: Never smoker Alcohol intake: current Alcohol use details: occasional Substance use: never Substance use type: does not use Do You Feel Safe in your Home?: Yes Lack of Transportation: No
[2024-05-09] MEDS: HYDROmorphone HCL INJ (*CRX) 1 MG/ML SYR IV PUSH ×3 (02:44→05:32)
[2024-05-09 02:52] LABS: Basophils Absolute Auto 0.1 K/mm3 (0.0-0.1); Eosinophils Absolute Auto 0.2 K/mm3 (0-0.3); Eosinophils Percent Auto 2.7 % (0-4.4); Hematocrit 38.6 % (37.0-47.0); Hemoglobin 12.7 g/dL (12.0-15.0); Immature Granulocyte Absolute 0.01 K/mm3 (0.00-0.031); Immature Granulocyte Percent A 0.1 % (0-0.5); Mean Corpuscular HGB Conc 32.9 g/dl (32-36); Mean Corpuscular Hemoglobin 31.3 pg (26-34); Mean Corpuscular Volume 95.1 fl (80-100); Mean Platelet Volume 9.4 fl (7.4-10.4); Monocytes Absolute Auto 0.5 K/mm3 (0.1-0.6); Monocytes Percent Auto 7.1 % (2.6-8.5); Neutrophils Absolute Auto 4.9 K/mm3 (1.3-6.7); Neutrophils Percent Auto 68.1 % (45.5-73.1); Platelet Count Result 226 k/mm3 (150-375); Red Blood Count 4.06 M/mm3 (4.2-5.4); Red Cell Distribution Width 13.1 % (11.5-14.5); White Blood Count 7.2 K/mm3 (4.5-10.0)
[2024-05-09 03:02] LABS: Anion Gap 11 mmol/L (4-12); Blood Urea Nitrogen 26 mg/dL (7-17); Calcium 9.9 mg/dL (8.4-10.2); Carbon Dioxide 27 mmol/L (22-30); Chloride 102 mmol/L (98-107); Estimated CRCL calculation 54 ml/min; Estimated Glomerular Filt Rate 55; Glucose 118 mg/dL (65-110); Potassium 4.3 mmol/L (3.4-5.0); Sodium 140 mmol/L (137-145)
--- NOTE | 2024-05-09 08:08 | PM.IMHP ---
H&P: HPI History of Present Illness Date/Time: 05/09/24 08:08 Chief Complaint: Fall left ankle pain Narrative: 68-year-old female presenting with left ankle injury. States that she was walking down some of her stairs which have carpet on them and she tripped landing on her left foot. States that she heard a loud pop and she fell down to her knees and lowered herself to the ground. She was unable to ambulate. Had immediate swelling of the left ankle. Did not strike her head or lose consciousness. No further injuries or complaints. In the ED vitals were stable. Laboratory evaluation was unremarkable. EKG showed normal sinus rhythm. X-ray of the ankle and foot showed trimalleolar ankle fracture. Splint has been placed. Orthopedic has been consulted. She is admitted for further treatment. Review of Systems Review of Systems: - CONSTITUTIONAL: Denies weight loss, fever and chills. - HEENT: Denies changes in vision and hearing - RESPIRATORY: Denies SOB and cough. - CV: Denies palpitations and CP. - GI: Denies abdominal pain, nausea, vomiting and diarrhea. - : Denies dysuria and urinary frequency. - MSK: Denies myalgia and reports left ankle pain - SKIN: Denies rash and pruritus. - NEUROLOGICAL: Denies headache and syncope. - PSYCHIATRIC: Denies recent changes in mood. Denies anxiety and depression. [facility] Past Medical History Medical History Bronchitis Constipation Depression Diverticulitis Elevated liver enzymes secondary to gallstone, LFTs returned to baseline. 05/03-05/08 admission. GERD (gastroesophageal reflux disease) Glaucoma History of stress test 2011 HLD (hyperlipidemia) Hypothyroidism Iron deficiency anemia Mitral valve prolapse Nausea & vomiting Osteoarthritis Rectal abscess Rectal pressure Surgical History Surgical History H/O laminectomy History of back surgery 2006 History of breast augmentation History of section History of cholecystectomy 05/06/23 History of colectomy hand assisted laparoscopic sigmoid colectomy with mobilization of the splenic flexure 01/20/24 Family History Family History Mother Cholecystitis Carcinoma of colon Diabetes mellitus Thyroid disease Sibling , 2021 Cholecystitis Postoperative acute deep vein thrombosis (DVT) of lower extremity Pulmonary embolism cause of Father Facial basal cell cancer Grandparent Heart disease Cerebrovascular accident Other Acute myocardial infarction 40s-50s Social History Social History Social History: Currently lives at home with her . Full code. Surrogate decision maker - Meliton Velasco (). Smoking status: Never smoker Alcohol intake: current Alcohol use details: occasional Substance use: never Substance use type: does not use Do You Feel Safe in your Home?: Yes Lack of Transportation: No Lack of Food: Never True Current Housing: I Have Housing Concerned About Future Housing: No Difficulty Paying Gas/Electric Bills: No Difficulty Paying for Meds: No Currently Unemployed: No Education: Associate Degree Difficulty w/ Childcare or Family Care: No Living arrangements: with family Occupation/Education: retired Gender identity (if verbalized by the patient): Female Spiritual care concerns: No Meds Home Medications and Allergies Home Medications Medication Instructions Recorded Confirmed Type [place] 3 Fish Oil 1,000 mg PO DAILY 05/03/23 05/09/24 History One-A-Day 50 Plus 1 tablet PO HS 05/03/23 05/09/24 History Retaine MGD (PF) 1 drp EACH EYE QID 05/03/23 05/09/24 History atorvastatin 10 mg tablet 10 mg PO 05/03/23 05/09/24 History brimonidine 0.2 %-timolol 0.5 % 1 dr
--- NOTE | 2024-05-09 08:11 | PCPTNOTE ---
Patient has ortho consult and is on bedrest. Will assess the patient after being seen by ortho as time allows.
[2024-05-09] MEDS: HYDROcodone/acetaminophen (*CRX) 10-325 MG TABLET 1 TAB PO (08:44)
[2024-05-09] MEDS: ARTIFICIAL TEARS OPHTH SOLN 15 ML BOTTLE 1 DROP EACH EYE ×4 (08:50→20:25)
[2024-05-09] MEDS: BRIMONIDINE TARTRATE 0.2% OP SOLN 5 ML BTL 1 DROP EACH EYE ×2 (08:51→20:24)
[2024-05-09] MEDS: TIMOLOL MALEATE 0.5% OP SOLN 5 ML BOTTLE 1 DROP EACH EYE ×2 (08:51→20:25)
[2024-05-09] MEDS: LEVOTHYROXINE SODIUM 75 MCG TABLET PO (08:58)
[2024-05-09] MEDS: cycloSPORINE 0.4 ML OPHTH SOLUTION 1 DROP EACH EYE ×2 (08:59→17:52)
--- NOTE | 2024-05-09 10:24 | PM.CNOR ---
Assessment and Plan Assessment and plan (1) Trimalleolar fracture of ankle, closed: Qualifiers: Encounter type: initial encounter Laterality: left Qualified Code(s): S82.852A - Displaced trimalleolar fracture of left lower leg, initial encounter for closed fracture Code(s): S82.853A - Displaced trimalleolar fracture of unspecified lower leg, initial encounter for closed fracture Status: Acute Plan Displaced, unstable left ankle trimalleolar fracture. Will benefit from ORIF. Plan on fixation of the lateral and medial malleoli, as the posterior fragment is less than 20%. Risks of surgery including wound healing complications, infection, hardware problems, need for reoperation including hardware removal, posttraumatic arthritis discussed. Proceed with ORIF left ankle trimalleolar fracture. We discussed the risks, benefits, and alternatives to surgery. Will use the Arthrex ankle fixation small fragment set. Surgery planned for tomorrow, 05/10/24 08:00. History of Present Illness HPI Consult date: 05/09/24 Chief complaint: Left Trimalleolar Fracture Narrative: 68-year-old female complains of exquisite left ankle pain. She tripped on the last step in her home. Admitted through the emergency department early this morning. She has significant steps to get into her house and is complaining of severe ankle pain. No prior ankle injury. She does have lumbar issues with the recent MRI and spine surgery consultation pending. She had a colon resection last year due to diverticulitis. No numbness, tingling, or other associated symptoms. Review of Systems Review of Systems: All systems reviewed & are unremarkable except as noted in HPI and below PMFSH Past Medical History Medical History Bronchitis Constipation Depression Diverticulitis Elevated liver enzymes secondary to gallstone, LFTs returned to baseline. 05/03-05/08 admission. GERD (gastroesophageal reflux disease) Glaucoma History of stress test 2011 HLD (hyperlipidemia) Hypothyroidism Iron deficiency anemia Mitral valve prolapse Nausea & vomiting Osteoarthritis Rectal abscess Rectal pressure Surgical History Surgical History H/O laminectomy History of back surgery 2006 History of breast augmentation History of section History of cholecystectomy 05/06/23 History of colectomy hand assisted laparoscopic sigmoid colectomy with mobilization of the splenic flexure 01/20/24 Family History Family History Mother Cholecystitis Carcinoma of colon Diabetes mellitus Thyroid disease Sibling , 2021 Cholecystitis Postoperative acute deep vein thrombosis (DVT) of lower extremity Pulmonary embolism cause of Father Facial basal cell cancer Grandparent Heart disease Cerebrovascular accident Other Acute myocardial infarction 40s-50s Social History Social History Social History: Currently lives at home with her . Full code. Surrogate decision maker - Meliton Velasco (). Smoking status: Never smoker Alcohol intake: current Alcohol use details: occasional Substance use: never Substance use type: does not use Do You Feel Safe in your Home?: Yes Lack of Transportation: No Lack of Food: Never True Current Housing: I Have Housing Concerned About Future Housing: No Difficulty Paying Gas/Electric Bills: No Difficulty Paying for Meds: No Currently Unemployed: No Education: Associate Degree Difficulty w/ Childcare or Family Care: No Living arrangements: with family Occupation/Education: retired Gender identity (if verbalized by the patient): Female Spiritual care concerns: No Meds Home Medications and Allergies Home Medications M
[2024-05-09] MEDS: HYDROmorphone HCL INJ (*CRX) 1 MG/ML SYR 0.5 MG IV PUSH ×2 (11:17→17:50)
[2024-05-09] MEDS: CHOLECALCIFEROL 1,000 UNITS TABLET 2000 UNITS PO (11:22)
[2024-05-09] MEDS: ACETAMINOPHEN 325 MG TABLET 650 MG PO ×3 (11:22→23:35)
[2024-05-09] MEDS: OMEGA 3 POLYUNSAT FATTY ACIDS 1 GM CAP PO (11:22)
[2024-05-09] MEDS: MELOXICAM 7.5 MG TABLET 15 MG PO (11:22)
[2024-05-09] MEDS: OPTI-GEN TAB 1 TABLET PO (11:23)
[2024-05-09] MEDS: ESCITALOPRAM OXALATE 10 MG TABLET PO (11:23)
--- NOTE | 2024-05-09 11:36 | PCOTNOTE ---
Attempted OT evaluation; per ortho consult pt. scheduled to have ORIF of left ankle. Will evaluate after surgery is complete.
--- NOTE | 2024-05-09 11:41 | PCPTNOTE ---
Patient to have ORIF tomorrow will discharge current orders and wait for Ortho orders with weightbearing status.
[2024-05-09] MEDS: oxyCODONE/ACETAMINOPHEN (*CRX) 10-325 MG TABLET 1 TAB PO (14:37)
[2024-05-09] MEDS: DOXYCYCLINE HYCLATE 100 MG TABLET PO (17:50)
[2024-05-09] MEDS: FERROUS SULFATE 325 MG TABLET DR PO (20:23)
[2024-05-09] MEDS: MULTIVITAMINS /C LUTEIN (CENTRUM SILVER) TABLET *BKC 1 TAB PO (20:23)
[2024-05-09] MEDS: ASCORBIC ACID 500 MG TABLET PO (20:23)
[2024-05-09] MEDS: ATORVASTATIN 10 MG TABLET PO (20:23)
[2024-05-09] MEDS: LATANOPROST 0.005% OP SOLN 2.5 ML BTL 1 DROP EACH EYE (20:25)
[2024-05-10] VITALS (15 sets, daily range): BP systolic 122–152; BP diastolic 56–88; PULSE 66–98; RESP 10–20; TEMP 36.3–36.9; O2SAT 94–100
[2024-05-10] MEDS: HYDROmorphone HCL INJ (*CRX) 1 MG/ML SYR IV PUSH (00:11)
[2024-05-10] MEDS: oxyCODONE/ACETAMINOPHEN (*CRX) 10-325 MG TABLET 1 TAB PO ×3 (01:22→20:48)
[2024-05-10] MEDS: ACETAMINOPHEN 325 MG TABLET 650 MG PO ×3 (07:00→17:08)
[2024-05-10] MEDS: LEVOTHYROXINE SODIUM 75 MCG TABLET PO (07:00)
[2024-05-10] MEDS: traMADol HCL (*CRX) 50 MG TABLET PO (07:00)
--- NOTE | 2024-05-10 08:02 | WPDHPUPDATE1 ---
History and Physical Update Update Date/Time: 05/10/24 08:02 History and Physical has been reviewed, including an updated exam of the patient. There are NO changes in the patient's condition. Risks, benefits, and alternatives have been discussed and questions answered. Patient agrees to proceed with procedure.
--- NOTE | 2024-05-10 08:12 | WPDANESEPPF ---
Anes - Initial Pre Proc Eval Procedure: Operation Date: 05/10/24 08:00 Proposed Procedures p ORIF Ankle Fracture(Left) - Talat Puentes MD Date/Time: 05/10/24 08:12 Surgeon: Rosalina Girard MD Pre Op Diagnosis: Left Trimalleolar Fracture Patient Data Age: 68 Gender: F Height: 1.7 m Weight: 84 kg Last Vital Signs Temp 36.7 C 05/10/24 06:00 Pulse 66 05/10/24 06:00 Resp 20 05/10/24 06:00 BP 124/58 L 05/10/24 06:00 Pulse Ox 96 05/10/24 06:00 O2 Del Method Room Air 05/09/24 20:00 FiO2 21 05/09/24 07:30 Allergies Allergy/AdvReac Type Severity Reaction Status Date / Time naproxen AdvReac Unknown Nausea and Verified 05/07/24 10:00 Vomiting adhesive tape AdvReac Other Verified 05/07/24 10:00 Home Medications Medication Instructions Recorded Confirmed Type [place] 3 Fish Oil 1,000 mg PO DAILY 05/03/23 05/09/24 History One-A-Day 50 Plus 1 tablet PO HS 05/03/23 05/09/24 History Retaine MGD (PF) 1 drp EACH EYE QID 05/03/23 05/09/24 History atorvastatin 10 mg tablet 10 mg PO HS 05/03/23 05/09/24 History brimonidine 0.2 %-timolol 0.5 % 1 drp EACH EYE BID 05/03/23 05/09/24 History eye drops (Combigan) cyclosporine 0.05 % eye drops in a 1 drp EACH EYE BID 05/03/23 05/09/24 History dropperette (Restasis) meloxicam 15 mg tablet 15 mg PO DAILY 05/03/23 05/09/24 History prednisolone acetate 1 % eye 1 drp EACH EYE PRN PRN Eye 05/03/23 05/09/24 History drops,suspension Irritation travoprost 0.004 % eye drops 1 drp EACH EYE HS 05/03/23 05/09/24 History (Travatan Z) Ocuvite Adult 50 Plus 1 tablet BYMOUTH DAILY 05/04/23 05/09/24 History Tumeric 1 tablet BYMOUTH DAILY 11/05/23 05/09/24 History doxycycline monohydrate 100 mg 100 mg PO DAILY 11/05/23 05/09/24 History tablet ascorbate calcium (vitamin C) 500 500 mg PO HS 11/29/23 05/09/24 History mg tablet cholecalciferol (vitamin D3) 50 50 mcg PO DAILY 01/13/24 05/09/24 History mcg (2,000 unit) tablet lactobacillus combination no.8 3 3 cell PO DAILY 01/13/24 05/09/24 History billion cell capsule varenicline 0.03 mg/spray nasal 1 spray intranasal BID 01/13/24 05/09/24 History spray (Tyrvaya) levothyroxine 75 mcg tablet 75 mcg PO DAILY #90 tabs 02/17/24 05/09/24 Rx escitalopram oxalate 10 mg tablet 10 mg PO DAILY #90 tabs 02/18/24 05/09/24 Rx ferrous sulfate 325 mg (65 mg 325 mg PO HS #90 tabs 02/18/24 05/09/24 Rx iron) tablet,delayed release Patient hx anesthesia problems: none Family hx anesthesia problems: none Results Review: All pre-operative results and documents have been reviewed as part of the pre-operative evaluation. [facility] Past Medical History Medical History Bronchitis Constipation Depression Diverticulitis Elevated liver enzymes secondary to gallstone, LFTs returned to baseline. 05/03-05/08 admission. GERD (gastroesophageal reflux disease) Glaucoma History of stress test 2011 HLD (hyperlipidemia) Hypothyroidism Iron deficiency anemia Mitral valve prolapse Nausea & vomiting Osteoarthritis Rectal abscess Rectal pressure Surgical History Surgical History H/O laminectomy History of back surgery 2006 History of breast augmentation History of section History of cholecystectomy 05/06/23 History of colectomy hand assisted laparoscopic sigmoid colectomy with mobilization of the splenic flexure 01/20/24 Family History Family History Mother Cholecystitis Carcinoma of colon Diabetes mellitus Thyroid disease Sibling , 2021 Cholecystitis Postoperative acute deep vein thrombosis (DVT) of lower extremity Pulmonary embolism cause of Father Facial basal cell cancer Grandparent Heart disease Cerebrovascular accident Other Acute myocardial infarction 40s-50s Social Histor
[2024-05-10] MEDS: BUPIVACAINE/EPINEPHRINE 0.5% 10 ML VIAL 30 ML INFILTRATE (08:16)
[2024-05-10] MEDS: ceFAZolin 2 GM/D5W 50 ML 2 GM/50 ML BAG IVPB (08:27)
[2024-05-10] MEDS: LACTATED RINGERS 1,000 ML 30 ML IV CONT (09:52)
--- NOTE | 2024-05-10 09:58 | W.PM.PROC2 ---
Procedure Note - Detailed Date of Procedure 05/10/24 Pre-op Diagnosis Left Trimalleolar Fracture Post-op Diagnosis Same Procedure Performed ORIF left ankle trimalleolar fracture with fixation of the medial and lateral malleoli. Surgeon Talat Puentes MD Anesthesia General Findings Good bone quality. Posterior malleolus was less than 20% and reduced nicely after reduction of the medial and lateral malleoli. Lateral fibular plating with an anterior to posterior lag screw. Two cannulated screws and the medial malleolus with anatomic reduction. Description of Procedure A general anesthetic was administered. The limb was prepped and draped in the usual sterile fashion with a well-padded tourniquet high on the thigh. A bump was placed under the hip. The limb was exsanguinated and the tourniquet inflated to 300 millimeters of mercury during the procedure. A longitudinal incision was created at the distal fibula. Careful dissection was carried down to bone. Perineal nerve branches were not encountered. The fracture was carefully exposed. Callus and debris was irrigated from the wound. The fracture was brought out to length. Reduction was accomplished with the reduction forceps. The anatomic plate fit very nicely. Fixation was performed with a combination of cortical and cancellous screws. The distal screws in the anatomic plate were locking. The medial malleolus was exposed with a longitudinal incision. The fracture was cleared of debris and irrigated. Anatomic reduction was obtained with the reduction tool. Biplanar fluoroscopy was used to assess the fracture reduction and guide placement of the K-wire. Two K-wires were placed parallel across the fracture site. The screw lengths were measured and drilled distally only. The long, partially threaded screws were placed, and the K-wires removed. Fluoroscopy was used throughout the procedure to confirm anatomic reduction and appropriate placement of the implants. The tourniquet was released. Meticulous hemostasis was obtained. Wound was closed in layers with 2-0 Vicryl suture 3-0 Monocryl suture and wally. A sterile dressing with well padded splint was applied. The patient was extubated and brought to the recovery room in stable condition. There were no complications. Implants Arthrex short anatomic distal fibular plate lateral. 44 mm x2 partially-threaded 4.0 mm cannulated screws. Estimated Blood Loss 10 Drains No Packing No Pathology None sent Complications No immediate complications Condition Stable Disposition PACU [facility] Surgery Charge Forward: Surgery Billing
[2024-05-10] MEDS: fentaNYL CITRATE INJ (*CRX) 100 MCG/2 ML VIAL 25 MCG IV PUSH ×2 (10:09→10:20)
[2024-05-10] MEDS: OPTI-GEN TAB 1 TABLET PO (12:24)
[2024-05-10] MEDS: ESCITALOPRAM OXALATE 10 MG TABLET PO (12:24)
[2024-05-10] MEDS: CHOLECALCIFEROL 1,000 UNITS TABLET 2000 UNITS PO (12:24)
[2024-05-10] MEDS: OMEGA 3 POLYUNSAT FATTY ACIDS 1 GM CAP PO (12:24)
[2024-05-10] MEDS: MELOXICAM 7.5 MG TABLET 15 MG PO (12:25)
[2024-05-10] MEDS: TIMOLOL MALEATE 0.5% OP SOLN 5 ML BOTTLE 1 DROP EACH EYE ×2 (12:30→20:37)
[2024-05-10] MEDS: ARTIFICIAL TEARS OPHTH SOLN 15 ML BOTTLE 1 DROP EACH EYE ×3 (12:30→20:37)
[2024-05-10] MEDS: BRIMONIDINE TARTRATE 0.2% OP SOLN 5 ML BTL 1 DROP EACH EYE ×2 (12:30→20:37)
[2024-05-10] MEDS: cycloSPORINE 0.4 ML OPHTH SOLUTION 1 DROP EACH EYE ×2 (12:31→17:08)
--- NOTE | 2024-05-10 13:18 | PM.IMPN ---
Progress Note: A&P Assessment and Plan (1) Trimalleolar fracture of ankle, closed: Qualifiers: Encounter type: initial encounter Laterality: left Qualified Code(s): S82.852A - Displaced trimalleolar fracture of left lower leg, initial encounter for closed fracture Code(s): S82.853A - Displaced trimalleolar fracture of unspecified lower leg, initial encounter for closed fracture Status: Acute (2) Hypothyroidism: Qualifiers: Hypothyroidism type: unspecified Qualified Code(s): E03.9 - Hypothyroidism, unspecified Code(s): E03.9 - Hypothyroidism, unspecified Status: Acute (3) HLD (hyperlipidemia): Qualifiers: Hyperlipidemia type: mixed hyperlipidemia Qualified Code(s): E78.2 - Mixed hyperlipidemia Code(s): E78.5 - Hyperlipidemia, unspecified Status: Acute (4) Low back pain: Code(s): M54.50 - Low back pain, unspecified Status: Acute Plan 68-year-old female presenting with left ankle injury. States that she was walking down some of her stairs which have carpet on them and she tripped landing on her left foot. States that she heard a loud pop and she fell down to her knees and lowered herself to the ground. She was unable to ambulate. Had immediate swelling of the left ankle. Did not strike her head or lose consciousness. No further injuries or complaints. In the ED vitals were stable. Laboratory evaluation was unremarkable. EKG showed normal sinus rhythm. X-ray of the ankle and foot showed trimalleolar ankle fracture. Splint has been placed. Orthopedic has been consulted. She is admitted for further treatment. Pain control with [place] p.r.n. and Dilaudid IV p.r.n.. orthopedics consulted. Status post or if left ankle trimalleolar fracture with fixation off medial and lateral malleoli 05/10/2024 Hyperlipidemia home medication Hypothyroidism home medication History of spinal stenosis and spinal surgery in the past recent MRI done which showed severe lumbar spondylosis DVT prophylaxis on aspirin b.i.d. Code status full code Subjective Date/time seen: 05/10/24 13:18 Interval history: underwent surgery today. Pain is controlled. No chest pain or shortness of breath. Review of Systems Review of Systems: All systems reviewed & are unremarkable except as noted in HPI and below Exam Narrative: GENERAL: Comfortable no acute distress, very pleasant cooperative HEAD: Normocephalic, atraumatic. EYES: PERRLA and EOMI. ENT: Grossly unremarkable NECK: Supple. CHEST: Clear to auscultation. No respiratory distress. HEART: Regular rate and rhythm EXTREMITIES: L ankle with dressing in place SKIN: Warm, dry, no rash. NEURO: No focal deficits. Alert and oriented x3. PSYCH: Normal mood and affect. Objective Data Vital Signs Vital Signs: Vital Signs - 24 hr 05/09/24 14:45 05/09/24 20:42 05/09/24 20:00 Temperature 97.9 F 98.0 F Pulse Rate 68 77 Respiratory Rate 16 22 H Blood Pressure 137/71 149/76 H Pulse Oximetry 98 94 Oxygen Delivery Room Air Oxygen Flow Rate 05/10/24 06:00 05/10/24 09:52 05/10/24 10:00 Temperature 98.1 F 98.4 F Pulse Rate 66 96 87 Respiratory Rate 20 12 10 L Blood Pressure 124/58 L 152/88 H 141/71 H Pulse Oximetry 96 100 100 Oxygen Delivery Simple Face Mask Simple Face Mask Oxygen Flow Rate 8 8 05/10/24 10:15 05/10/24 10:30 05/10/24 10:45 Temperature Pulse Rate 87 92 81 Respiratory Rate 12 18 16 Blood Pressure 140/68 126/76 127/57 L Pulse Oximetry 97 97 98 Oxygen Delivery Room Air Room Air Nasal Cannula Oxygen Flow Rate 2 05/10/24 11:00 Temperature Pulse Rate 82 Respiratory Rate 18 Blood Pressure 124/56 L Pulse Oximetry 94 Oxygen Delivery Room Air Oxygen Flow Rate Intake/Output Intake/Output: Intake & Output 05/07/24 05/08/24 05/09/24 05/10/24 23:59 23:59 23:59 23:59 Intake Total 618 Output Total 400 Balance 218 Meds/Results
[2024-05-10] MEDS: ceFAZolin 1 GM/NS 50 ML 1 GM/50 ML BAG IVPB (17:07)
[2024-05-10] MEDS: SENNA/DOCUSATE SODIUM TABLET 2 TAB PO (17:08)
[2024-05-10] MEDS: DOXYCYCLINE HYCLATE 100 MG TABLET PO (17:08)
[2024-05-10] MEDS: ATORVASTATIN 10 MG TABLET PO (20:36)
[2024-05-10] MEDS: ASCORBIC ACID 500 MG TABLET PO (20:36)
[2024-05-10] MEDS: MULTIVITAMINS /C LUTEIN (CENTRUM SILVER) TABLET *BKC 1 TAB PO (20:36)
[2024-05-10] MEDS: FERROUS SULFATE 325 MG TABLET DR PO (20:36)
[2024-05-10] MEDS: ASPIRIN 81 MG ENTERIC TABLET PO (20:36)
[2024-05-10] MEDS: LATANOPROST 0.005% OP SOLN 2.5 ML BTL 1 DROP EACH EYE (20:37)
[2024-05-11] MEDS: ACETAMINOPHEN 325 MG TABLET 650 MG PO ×4 (00:12→17:16)
[2024-05-11] MEDS: ceFAZolin 1 GM/NS 50 ML 1 GM/50 ML BAG IVPB ×2 (00:21→07:42)
[2024-05-11 00:47] VITALS: BP 122/86; PULSE 72; RESP 18; TEMP 36.8; O2SAT 98
[2024-05-11] MEDS: LEVOTHYROXINE SODIUM 75 MCG TABLET PO (03:40)
[2024-05-11] MEDS: oxyCODONE/ACETAMINOPHEN (*CRX) 10-325 MG TABLET 1 TAB PO ×3 (03:40→16:08)
[2024-05-11 08:00] VITALS: BP 138/68; PULSE 82; RESP 18; TEMP 36.2; O2SAT 100
[2024-05-11] MEDS: BRIMONIDINE TARTRATE 0.2% OP SOLN 5 ML BTL 1 DROP EACH EYE ×2 (08:10→21:05)
[2024-05-11] MEDS: ARTIFICIAL TEARS OPHTH SOLN 15 ML BOTTLE 1 DROP EACH EYE ×3 (08:10→17:16)
[2024-05-11] MEDS: cycloSPORINE 0.4 ML OPHTH SOLUTION 1 DROP EACH EYE ×2 (08:11→17:16)
[2024-05-11] MEDS: ASPIRIN 81 MG ENTERIC TABLET PO ×2 (08:12→21:12)
[2024-05-11] MEDS: CHOLECALCIFEROL 1,000 UNITS TABLET 2000 UNITS PO (08:12)
[2024-05-11] MEDS: ESCITALOPRAM OXALATE 10 MG TABLET PO (08:12)
[2024-05-11] MEDS: MELOXICAM 7.5 MG TABLET 15 MG PO (08:12)
[2024-05-11] MEDS: SENNA/DOCUSATE SODIUM TABLET 2 TAB PO ×2 (08:12→17:17)
[2024-05-11] MEDS: TIMOLOL MALEATE 0.5% OP SOLN 5 ML BOTTLE 1 DROP EACH EYE ×2 (08:13→20:50)
[2024-05-11] MEDS: OPTI-GEN TAB 1 TABLET PO (08:13)
[2024-05-11] MEDS: OMEGA 3 POLYUNSAT FATTY ACIDS 1 GM CAP PO (08:13)
[2024-05-11 08:50] LABS: Basophils Percent Auto 0.3 % (0.2-1.2); Hemoglobin 10.9 g/dL (12.0-15.0); Immature Granulocyte Absolute 0.03 K/mm3 (0.00-0.031); Immature Granulocyte Percent A 0.3 % (0-0.5); Lymphocytes Absolute Auto 0.85 K/mm3 (0.9-3.2); Lymphocytes Percent Auto 8.6 % (18.3-44.2); Mean Corpuscular HGB Conc 32.1 g/dl (32-36); Mean Corpuscular Hemoglobin 31.2 pg (26-34); Mean Corpuscular Volume 97.4 fl (80-100); Mean Platelet Volume 9.8 fl (7.4-10.4); Monocytes Absolute Auto 0.6 K/mm3 (0.1-0.6); Monocytes Percent Auto 6.5 % (2.6-8.5); Neutrophils Absolute Auto 8.4 K/mm3 (1.3-6.7); Neutrophils Percent Auto 84.3 % (45.5-73.1); Platelet Count Result 207 k/mm3 (150-375); Red Blood Count 3.49 M/mm3 (4.2-5.4); Red Cell Distribution Width 13.2 % (11.5-14.5); White Blood Count 9.9 K/mm3 (4.5-10.0)
[2024-05-11 09:08] LABS: Alanine Aminotransferase 279 U/L (6-35); Albumin Level 3.9 g/dL (3.5-5.1); Alkaline Phosphatase 149 U/L (38-126); Anion Gap 7 mmol/L (4-12); Aspartate Amino Transferase 235 U/L (14-36); Bilirubin,Total 0.3 mg/dL (0.2-1.3); Blood Urea Nitrogen 27 mg/dL (7-17); Carbon Dioxide 31 mmol/L (22-30); Chloride 97 mmol/L (98-107); Estimated CRCL calculation 54 ml/min; Estimated Glomerular Filt Rate 55; Glucose 112 mg/dL (65-110); Magnesium 2.2 mg/dL (1.6-2.3); Potassium 4.4 mmol/L (3.4-5.0); Sodium 135 mmol/L (137-145)
[2024-05-11 12:00] VITALS: BP 128/70; PULSE 79; RESP 19; TEMP 36.3; O2SAT 99
--- NOTE | 2024-05-11 12:00 | PM.PNORT ---
Progress Note: A&P Assessment and Plan (1) Trimalleolar fracture of ankle, closed: Qualifiers: Encounter type: initial encounter Laterality: left Qualified Code(s): S82.852A - Displaced trimalleolar fracture of left lower leg, initial encounter for closed fracture Code(s): S82.853A - Displaced trimalleolar fracture of unspecified lower leg, initial encounter for closed fracture Status: Acute Assessment and Plan: POD #1: ORIF left ankle trimalleolar fracture with fixation of the medial and lateral malleoli. Patient progressing well. Spoke with therapy. She is progressing well. Patient is concerned that she has to help take care of her . She is refusing home health. She states that her can help her get food and that she will be able to care for herself. Okay for discharge once patient is medically stable. Ortho instructions: D/C Home Xray in 2 weeks with follow up in office. Please call [facility] orthopaedics for apointment. Keep splint intact. Toe touch weight bearing with a walker. DVT prophylaxis: continue Aspirin 81 mg twice daily until next visit. Pain medication: Oxycodone Subjective Subjective Date/Time Seen: 05/11/24 12:00 Interval history: Patient resting comfortably. Complains of tightness in her foot. Notes pain. She has been up with therapy. No numbness. Review of Systems Review of Systems: All systems reviewed & are unremarkable except as noted in HPI and below Exam Narrative: 68 y/o female. Resting comfortably in bed. Splint intact. Loosened kelton wrap. Lower leg elevated. No distress. Distal neurovascularly intact. Wiggles toes. Objective Data Vital Signs Vital Signs: Vital Signs - 24 hr 05/10/24 12:47 05/10/24 13:30 05/10/24 14:02 Temperature 97.5 F L Pulse Rate 87 Respiratory Rate 20 Blood Pressure 140/71 Pulse Oximetry 95 Oxygen Delivery Room Air Room Air 05/10/24 14:00 05/10/24 17:00 05/10/24 20:47 Temperature 97.6 F 98.4 F 97.3 F L Pulse Rate 93 97 98 Respiratory Rate 19 16 20 Blood Pressure 127/59 L 134/64 123/66 Pulse Oximetry 95 94 95 Oxygen Delivery 05/10/24 20:00 05/11/24 00:47 05/11/24 08:00 Temperature 98.2 F 97.1 F L Pulse Rate 72 82 Respiratory Rate 18 18 Blood Pressure 122/86 138/68 Pulse Oximetry 95 98 100 Oxygen Delivery 05/11/24 08:00 Temperature Pulse Rate Respiratory Rate Blood Pressure Pulse Oximetry 100 Oxygen Delivery Room Air Intake/Output Intake/Output: Intake & Output 05/08/24 05/09/24 05/10/24 05/11/24 23:59 23:59 23:59 23:59 Intake Total 908 407 Output Total 400 Balance 508 407 Meds/Results Medications: Active Medications Generic Name Dose Route Start Last Admin Trade Name Freq PRN Reason Stop Dose Admin Acetaminophen 650 mg 05/09/24 12:00 05/11/24 11:26 Acetaminophen 325 Mg Tablet PO 650 mg Q6HR ALEX Administration Artificial Tears 1 drop 05/09/24 09:00 05/11/24 08:10 Artificial Tears Ophth Soln 15 Ml Bottle EACH EYE 1 drop QID ALEX Administration Ascorbic Acid 500 mg 05/09/24 21:00 05/10/24 20:36 Ascorbic Acid 500 Mg Tablet PO 500 mg HS ALEX Administration Aspirin 81 mg 05/10/24 21:00 05/11/24 08:12 Aspirin 81 Mg Enteric Tablet PO 81 mg Q12HR ALEX Administration Atorvastatin Calcium 10 mg 05/09/24 21:00 05/10/24 20:36 Atorvastatin 10 Mg Tablet PO 10 mg HS ALEX Administration Brimonidine Tartrate 1 drop 05/09/24 09:00 05/11/24 08:10 Brimonidine Tartrate 0.2% Op Soln 5 Ml Btl EACH EYE 1 drop Q12HR ALEX Administration Cyclosporine 1 drop 05/09/24 09:00 05/11/24 08:11 Cyclosporine 0.4 Ml Ophth Solution EACH EYE 1 drop BID ALEX Administration Doxycycline Hyclate 100 mg 05/09/24 18:00 05/10/24 17:08 Doxycycline Hyclate 100 Mg Tablet PO 100 mg QPM ALEX Administration Escitalopram Oxalate 10 mg 05/09/24 09:00 05/11/24 08:12 Es
--- NOTE | 2024-05-11 12:45 | PM.IMPN ---
Progress Note: A&P Assessment and Plan (1) Trimalleolar fracture of ankle, closed: Qualifiers: Encounter type: initial encounter Laterality: left Qualified Code(s): S82.852A - Displaced trimalleolar fracture of left lower leg, initial encounter for closed fracture Code(s): S82.853A - Displaced trimalleolar fracture of unspecified lower leg, initial encounter for closed fracture Status: Acute (2) Hypothyroidism: Qualifiers: Hypothyroidism type: unspecified Qualified Code(s): E03.9 - Hypothyroidism, unspecified Code(s): E03.9 - Hypothyroidism, unspecified Status: Acute (3) HLD (hyperlipidemia): Qualifiers: Hyperlipidemia type: mixed hyperlipidemia Qualified Code(s): E78.2 - Mixed hyperlipidemia Code(s): E78.5 - Hyperlipidemia, unspecified Status: Acute (4) Low back pain: Code(s): M54.50 - Low back pain, unspecified Status: Acute Plan 68-year-old female presenting with left ankle injury. States that she was walking down some of her stairs which have carpet on them and she tripped landing on her left foot. States that she heard a loud pop and she fell down to her knees and lowered herself to the ground. She was unable to ambulate. Had immediate swelling of the left ankle. Did not strike her head or lose consciousness. No further injuries or complaints. In the ED vitals were stable. Laboratory evaluation was unremarkable. EKG showed normal sinus rhythm. X-ray of the ankle and foot showed trimalleolar ankle fracture. Splint has been placed. Orthopedic has been consulted. She is admitted for further treatment. Pain control with [place] p.r.n. and Dilaudid IV p.r.n.. orthopedics consulted. Status post or if left ankle trimalleolar fracture with fixation off medial and lateral malleoli 05/10/2024 PT OT to see plan to DC home on oral pain medication and use of walker Hyperlipidemia home medication Hypothyroidism home medication History of spinal stenosis and spinal surgery in the past recent MRI done which showed severe lumbar spondylosis DVT prophylaxis on aspirin b.i.d. Code status full code Subjective Date/time seen: 05/11/24 12:45 Interval history: Pain in left foot. Her rash in her eye leads has gotten worse. No chest pain or shortness of breath Review of Systems Review of Systems: All systems reviewed & are unremarkable except as noted in HPI and below Exam Narrative: GENERAL: Comfortable no acute distress, very pleasant cooperative HEAD: Normocephalic, atraumatic. EYES: PERRLA and EOMI. ENT: Grossly unremarkable NECK: Supple. CHEST: Clear to auscultation. No respiratory distress. HEART: Regular rate and rhythm EXTREMITIES: L ankle with dressing in place SKIN: Warm, dry, no rash. NEURO: No focal deficits. Alert and oriented x3. PSYCH: Normal mood and affect. Objective Data Vital Signs Vital Signs: Vital Signs - 24 hr 05/10/24 12:47 05/10/24 13:30 05/10/24 14:02 Temperature 97.5 F L Pulse Rate 87 Respiratory Rate 20 Blood Pressure 140/71 Pulse Oximetry 95 Oxygen Delivery Room Air Room Air 05/10/24 14:00 05/10/24 17:00 05/10/24 20:47 Temperature 97.6 F 98.4 F 97.3 F L Pulse Rate 93 97 98 Respiratory Rate 19 16 20 Blood Pressure 127/59 L 134/64 123/66 Pulse Oximetry 95 94 95 Oxygen Delivery 05/10/24 20:00 05/11/24 00:47 05/11/24 08:00 Temperature 98.2 F 97.1 F L Pulse Rate 72 82 Respiratory Rate 18 18 Blood Pressure 122/86 138/68 Pulse Oximetry 95 98 100 Oxygen Delivery 05/11/24 08:00 05/11/24 12:00 Temperature 97.3 F L Pulse Rate 79 Respiratory Rate 19 Blood Pressure 128/70 Pulse Oximetry 100 99 Oxygen Delivery Room Air Intake/Output Intake/Output: Intake & Output 05/08/24 05/09/24 05/10/24 05/11/24 23:59 23:59 23:59 23:59 Intake Total 908 527 Output Total 400 Balance 508 527 Meds/Results Medications: Active Medication
[2024-05-11] MEDS: TRIAMCINOLONE ACET 0.1% CREAM 15 GM TUBE 1 APPLIC TOPICAL (14:57)
[2024-05-11] MEDS: traMADol HCL (*CRX) 50 MG TABLET PO (15:00)
[2024-05-11] MEDS: DOXYCYCLINE HYCLATE 100 MG TABLET PO (17:17)
[2024-05-11 20:10] VITALS: BP 129/69; PULSE 84; RESP 16; TEMP 37.3; O2SAT 99
[2024-05-11] MEDS: MULTIVITAMINS /C LUTEIN (CENTRUM SILVER) TABLET *BKC 1 TAB PO (21:12)
[2024-05-11] MEDS: ASCORBIC ACID 500 MG TABLET PO (21:12)
[2024-05-11] MEDS: ATORVASTATIN 10 MG TABLET PO (21:12)
[2024-05-11] MEDS: FERROUS SULFATE 325 MG TABLET DR PO (21:12)
[2024-05-11] MEDS: LATANOPROST 0.005% OP SOLN 2.5 ML BTL 1 DROP EACH EYE (21:14)
[2024-05-12] MEDS: ACETAMINOPHEN 325 MG TABLET 650 MG PO ×2 (00:18→06:25)
[2024-05-12] MEDS: oxyCODONE/ACETAMINOPHEN (*CRX) 10-325 MG TABLET 1 TAB PO ×4 (00:18→23:12)
[2024-05-12] MEDS: HYDROmorphone HCL INJ (*CRX) 1 MG/ML SYR IV PUSH (03:47)
[2024-05-12] MEDS: LEVOTHYROXINE SODIUM 75 MCG TABLET PO (04:10)
[2024-05-12 04:15] VITALS: BP 127/62; PULSE 85; RESP 16; TEMP 36.8; O2SAT 98
[2024-05-12] MEDS: TRIAMCINOLONE ACET 0.1% CREAM 15 GM TUBE 1 APPLIC TOPICAL ×2 (04:15→20:26)
[2024-05-12 07:16] LABS: Basophils Percent Auto 0.6 % (0.2-1.2); Eosinophils Absolute Auto 0.2 K/mm3 (0-0.3); Eosinophils Percent Auto 2.4 % (0-4.4); Hematocrit 31.7 % (37.0-47.0); Hemoglobin 10.2 g/dL (12.0-15.0); Immature Granulocyte Absolute 0.01 K/mm3 (0.00-0.031); Immature Granulocyte Percent A 0.1 % (0-0.5); Lymphocytes Absolute Auto 1.88 K/mm3 (0.9-3.2); Lymphocytes Percent Auto 26.3 % (18.3-44.2); Mean Corpuscular HGB Conc 32.2 g/dl (32-36); Mean Corpuscular Hemoglobin 31.4 pg (26-34); Mean Corpuscular Volume 97.5 fl (80-100); Mean Platelet Volume 9.8 fl (7.4-10.4); Monocytes Absolute Auto 0.7 K/mm3 (0.1-0.6); Monocytes Percent Auto 9.5 % (2.6-8.5); Neutrophils Absolute Auto 4.4 K/mm3 (1.3-6.7); Neutrophils Percent Auto 61.1 % (45.5-73.1); Platelet Count Result 190 k/mm3 (150-375); Red Blood Count 3.25 M/mm3 (4.2-5.4); Red Cell Distribution Width 13.7 % (11.5-14.5); White Blood Count 7.2 K/mm3 (4.5-10.0)
[2024-05-12 07:47] LABS: Alanine Aminotransferase 412 U/L (6-35); Albumin Level 3.8 g/dL (3.5-5.1); Alkaline Phosphatase 134 U/L (38-126); Anion Gap 7 mmol/L (4-12); Aspartate Amino Transferase 633 U/L (14-36); Bilirubin,Total 0.6 mg/dL (0.2-1.3); Blood Urea Nitrogen 29 mg/dL (7-17); Carbon Dioxide 30 mmol/L (22-30); Chloride 100 mmol/L (98-107); Estimated CRCL calculation 59 ml/min; Estimated Glomerular Filt Rate > 60; Glucose 90 mg/dL (65-110); Magnesium 2.1 mg/dL (1.6-2.3); Potassium 4.3 mmol/L (3.4-5.0); Sodium 137 mmol/L (137-145)
--- NOTE | 2024-05-12 08:09 | PM.PNORT ---
Progress Note: A&P Assessment and Plan (1) Trimalleolar fracture of ankle, closed: Qualifiers: Encounter type: initial encounter Laterality: left Qualified Code(s): S82.852A - Displaced trimalleolar fracture of left lower leg, initial encounter for closed fracture Code(s): S82.853A - Displaced trimalleolar fracture of unspecified lower leg, initial encounter for closed fracture Status: Acute Assessment and Plan: POD #2: ORIF left ankle trimalleolar fracture with fixation of the medial and lateral malleoli. No changes in condition from orthopedic standpoint. Patient progressing well. Patient apprehensive about returning home due to the stairs getting into her home. She has worked with formal physical therapy and have come up with a plan to get up the stairs. Okay for discharge once patient is medically stable. Ortho instructions: D/C Home Xray in 2 weeks with follow up in office. Please call [facility] orthopaedics for apointment. Keep splint intact. Toe touch weight bearing with a walker. DVT prophylaxis: continue Aspirin 81 mg twice daily until next visit. Pain medication: Oxycodone Subjective Subjective Date/Time Seen: 05/12/24 08:09 Interval history: Patient walking to the bathroom with a walker at the time of my visit. Patient is doing very well. She states pain is more controlled today. She is very nervous about returning home due to the stairs getting into her home. She is working with formal physical therapy today. Review of Systems Review of Systems: All systems reviewed & are unremarkable except as noted in HPI and below Exam Narrative: 68 y/o female. Resting comfortably in bed. Splint intact. Toe touch weight bearing with a walker. Ambulating well. No distress. Distal neurovascularly intact. Wiggles toes. Objective Data Vital Signs Vital Signs: Vital Signs - 24 hr 05/11/24 12:00 05/11/24 20:00 05/11/24 20:10 Temperature 97.3 F L 99.1 F Pulse Rate 79 84 Respiratory Rate 19 16 Blood Pressure 128/70 129/69 Pulse Oximetry 99 99 Oxygen Delivery Room Air 05/12/24 04:15 Temperature 98.2 F Pulse Rate 85 Respiratory Rate 16 Blood Pressure 127/62 Pulse Oximetry 98 Oxygen Delivery Intake/Output Intake/Output: Intake & Output 0905/10/24 05/11/24 05/12/24 23:59 23:59 23:59 23:59 Intake Total 908 1487 750 Output Total 400 Balance 508 1487 750 Meds/Results Medications: Active Medications Generic Name Dose Route Start Last Admin Trade Name Mathewq PRN Reason Stop Dose Admin Acetaminophen 650 mg 05/09/24 12:00 05/12/24 06:25 Acetaminophen 325 Mg Tablet PO 650 mg Q6HR ALEX Administration Artificial Tears 1 drop 05/09/24 09:00 05/11/24 21:18 Artificial Tears Ophth Soln 15 Ml Bottle EACH EYE Not Given QID ALEX Ascorbic Acid 500 mg 05/09/24 21:00 05/11/24 21:12 Ascorbic Acid 500 Mg Tablet PO 500 mg HS ALEX Administration Aspirin 81 mg 05/10/24 21:00 05/11/24 21:12 Aspirin 81 Mg Enteric Tablet PO 81 mg Q12HR ALEX Administration Atorvastatin Calcium 10 mg 05/09/24 21:00 05/11/24 21:12 Atorvastatin 10 Mg Tablet PO 10 mg HS ALEX Administration Brimonidine Tartrate 1 drop 05/09/24 09:00 05/11/24 21:05 Brimonidine Tartrate 0.2% Op Soln 5 Ml Btl EACH EYE 1 drop Q12HR ALEX Administration Cyclosporine 1 drop 05/09/24 09:00 05/11/24 17:16 Cyclosporine 0.4 Ml Ophth Solution EACH EYE 1 drop BID ALEX Administration Doxycycline Hyclate 100 mg 05/09/24 18:00 05/11/24 17:17 Doxycycline Hyclate 100 Mg Tablet PO 100 mg QPM ALEX Administration Escitalopram Oxalate 10 mg 05/09/24 09:00 05/11/24 08:12 Escitalopram Oxalate 10 Mg Tablet PO 10 mg DAILY ALEX Administration Fentanyl Citrate 25 mcg 05/10/24 08:14 05/10/24 10:20 Fentanyl Citrate Inj (*Crx) 100 Mcg/2 Ml Vial IV PUSH 25 mcg Q2M PRN Administration Pain Ferrous
[2024-05-12] MEDS: cycloSPORINE 0.4 ML OPHTH SOLUTION 1 DROP EACH EYE ×2 (08:37→17:26)
[2024-05-12] MEDS: OMEGA 3 POLYUNSAT FATTY ACIDS 1 GM CAP PO (08:37)
[2024-05-12] MEDS: ASPIRIN 81 MG ENTERIC TABLET PO ×2 (08:37→20:26)
[2024-05-12] MEDS: SENNA/DOCUSATE SODIUM TABLET 2 TAB PO ×2 (08:38→17:24)
[2024-05-12] MEDS: MELOXICAM 7.5 MG TABLET 15 MG PO (08:38)
[2024-05-12] MEDS: CHOLECALCIFEROL 1,000 UNITS TABLET 2000 UNITS PO (08:39)
[2024-05-12] MEDS: ESCITALOPRAM OXALATE 10 MG TABLET PO (08:39)
[2024-05-12] MEDS: OPTI-GEN TAB 1 TABLET PO (08:39)
[2024-05-12] MEDS: ARTIFICIAL TEARS OPHTH SOLN 15 ML BOTTLE 1 DROP EACH EYE ×3 (08:40→17:26)
[2024-05-12] MEDS: TIMOLOL MALEATE 0.5% OP SOLN 5 ML BOTTLE 1 DROP EACH EYE ×2 (08:40→20:20)
[2024-05-12] MEDS: BRIMONIDINE TARTRATE 0.2% OP SOLN 5 ML BTL 1 DROP EACH EYE ×2 (08:40→20:15)
[2024-05-12] MEDS: polyethylene glycoL 3350 17 GM POWD.PACK PO (08:42)
[2024-05-12 09:57] LABS: Acetaminophen < 10 ug/mL (10-30); Salicylate < 1.0 mg/dL (2-20)
[2024-05-12 11:23] LABS: Hepatitis B Surface Antigen Negative (Negative)
[2024-05-12 11:31] LABS: HAV RESULT Negative (Negative); Hepatitis B Core IgM Result Negative (Negative)
[2024-05-12 11:40] LABS: Hepatitis C Virus Antibody Negative (Negative)
--- NOTE | 2024-05-12 13:11 | PM.IMPN ---
Progress Note: A&P Assessment and Plan (1) Trimalleolar fracture of ankle, closed: Qualifiers: Encounter type: initial encounter Laterality: left Qualified Code(s): S82.852A - Displaced trimalleolar fracture of left lower leg, initial encounter for closed fracture Code(s): S82.853A - Displaced trimalleolar fracture of unspecified lower leg, initial encounter for closed fracture Status: Acute (2) Hypothyroidism: Qualifiers: Hypothyroidism type: unspecified Qualified Code(s): E03.9 - Hypothyroidism, unspecified Code(s): E03.9 - Hypothyroidism, unspecified Status: Acute (3) HLD (hyperlipidemia): Qualifiers: Hyperlipidemia type: mixed hyperlipidemia Qualified Code(s): E78.2 - Mixed hyperlipidemia Code(s): E78.5 - Hyperlipidemia, unspecified Status: Acute (4) Low back pain: Code(s): M54.50 - Low back pain, unspecified Status: Acute Plan 68-year-old female presenting with left ankle injury. States that she was walking down some of her stairs which have carpet on them and she tripped landing on her left foot. States that she heard a loud pop and she fell down to her knees and lowered herself to the ground. She was unable to ambulate. Had immediate swelling of the left ankle. Did not strike her head or lose consciousness. No further injuries or complaints. In the ED vitals were stable. Laboratory evaluation was unremarkable. EKG showed normal sinus rhythm. X-ray of the ankle and foot showed trimalleolar ankle fracture. Splint has been placed. Orthopedic has been consulted. She is admitted for further treatment. Pain control with [place] p.r.n. and Dilaudid IV p.r.n.. orthopedics consulted. Status post or if left ankle trimalleolar fracture with fixation off medial and lateral malleoli 05/10/2024 PT OT to see plan to DC home on oral pain medication and use of walker Elevated liver enzymes continues to worsen. Will get right upper quadrant ultrasound. Check Tylenol and hassle sided labs. Check hepatitis profile. Discontinue Acetaminophen. Monitor LFTs. Avoid hepatotoxic drugs Hyperlipidemia home medication Hypothyroidism home medication History of spinal stenosis and spinal surgery in the past recent MRI done which showed severe lumbar spondylosis DVT prophylaxis on aspirin b.i.d. Code status full code Subjective Date/time seen: 05/12/24 13:12 Interval history: No overnight events. Pain is controlled. Denies any abdominal pain nausea vomiting. Review of Systems Review of Systems: All systems reviewed & are unremarkable except as noted in HPI and below Exam Narrative: GENERAL: Comfortable no acute distress, very pleasant cooperative HEAD: Normocephalic, atraumatic. EYES: PERRLA and EOMI. ENT: Grossly unremarkable NECK: Supple. CHEST: Clear to auscultation. No respiratory distress. HEART: Regular rate and rhythm EXTREMITIES: L ankle with dressing in place SKIN: Warm, dry, no rash. NEURO: No focal deficits. Alert and oriented x3. PSYCH: Normal mood and affect. Objective Data Vital Signs Vital Signs: Vital Signs - 24 hr 05/11/24 20:00 05/11/24 20:10 05/12/24 04:15 Temperature 99.1 F 98.2 F Pulse Rate 84 85 Respiratory Rate 16 16 Blood Pressure 129/69 127/62 Pulse Oximetry 99 98 Oxygen Delivery Room Air Intake/Output Intake/Output: Intake & Output 05/09/24 05/10/24 05/11/24 05/12/24 23:59 23:59 23:59 23:59 Intake Total 908 1487 990 Output Total 400 Balance 508 1487 990 Meds/Results Medications: Active Medications Generic Name Dose Route Start Last Admin Trade Name Freq PRN Reason Stop Dose Admin Acetaminophen 650 mg 05/09/24 12:00 05/12/24 06:25 Acetaminophen 325 Mg Tablet PO 650 mg Q6HR ALEX Administration Artificial Tears 1 drop 05/09/24 09:00 05/12/24 08:40 Artificial Tears Ophth Soln 15 Ml Bottle EACH EYE 1 drop QID ALEX Administration Asc
[2024-05-12] MEDS: DOXYCYCLINE HYCLATE 100 MG TABLET PO (17:25)
[2024-05-12] MEDS: LATANOPROST 0.005% OP SOLN 2.5 ML BTL 1 DROP EACH EYE (20:25)
[2024-05-12] MEDS: ASCORBIC ACID 500 MG TABLET PO (20:26)
[2024-05-12] MEDS: FERROUS SULFATE 325 MG TABLET DR PO (20:26)
[2024-05-12] MEDS: MULTIVITAMINS /C LUTEIN (CENTRUM SILVER) TABLET *BKC 1 TAB PO (20:26)
[2024-05-12 21:25] VITALS: BP 106/54; PULSE 79; RESP 13; TEMP 36.6; O2SAT 97
[2024-05-13] MEDS: LEVOTHYROXINE SODIUM 75 MCG TABLET PO (04:53)
[2024-05-13 05:39] VITALS: BP 146/77; PULSE 82; RESP 20; TEMP 36.4; O2SAT 92
[2024-05-13 06:17] LABS: Basophils Percent Auto 0.5 % (0.2-1.2); Eosinophils Absolute Auto 0.3 K/mm3 (0-0.3); Eosinophils Percent Auto 4.6 % (0-4.4); Hematocrit 32.6 % (37.0-47.0); Hemoglobin 10.6 g/dL (12.0-15.0); Immature Granulocyte Absolute 0.01 K/mm3 (0.00-0.031); Immature Granulocyte Percent A 0.2 % (0-0.5); Lymphocytes Absolute Auto 1.69 K/mm3 (0.9-3.2); Lymphocytes Percent Auto 29.6 % (18.3-44.2); Mean Corpuscular HGB Conc 32.5 g/dl (32-36); Mean Corpuscular Hemoglobin 31.6 pg (26-34); Mean Corpuscular Volume 97.3 fl (80-100); Mean Platelet Volume 9.3 fl (7.4-10.4); Monocytes Absolute Auto 0.6 K/mm3 (0.1-0.6); Monocytes Percent Auto 10.5 % (2.6-8.5); Neutrophils Absolute Auto 3.1 K/mm3 (1.3-6.7); Neutrophils Percent Auto 54.6 % (45.5-73.1); Platelet Count Result 183 k/mm3 (150-375); Red Blood Count 3.35 M/mm3 (4.2-5.4); Red Cell Distribution Width 13.7 % (11.5-14.5); White Blood Count 5.7 K/mm3 (4.5-10.0)
[2024-05-13 06:35] LABS: Alanine Aminotransferase 316 U/L (6-35); Albumin Level 3.7 g/dL (3.5-5.1); Alkaline Phosphatase 143 U/L (38-126); Anion Gap 8 mmol/L (4-12); Aspartate Amino Transferase 245 U/L (14-36); Bilirubin,Total 0.3 mg/dL (0.2-1.3); Blood Urea Nitrogen 23 mg/dL (7-17); Calcium 9.2 mg/dL (8.4-10.2); Carbon Dioxide 28 mmol/L (22-30); Chloride 100 mmol/L (98-107); Estimated CRCL calculation 66 ml/min; Estimated Glomerular Filt Rate > 60; Glucose 99 mg/dL (65-110); Magnesium 1.9 mg/dL (1.6-2.3); Potassium 4.1 mmol/L (3.4-5.0); Sodium 136 mmol/L (137-145)
--- NOTE | 2024-05-13 08:35 | PM.PNORT ---
Progress Note: A&P Assessment and Plan (1) Trimalleolar fracture of ankle, closed: Qualifiers: Encounter type: initial encounter Laterality: left Qualified Code(s): S82.852A - Displaced trimalleolar fracture of left lower leg, initial encounter for closed fracture Code(s): S82.853A - Displaced trimalleolar fracture of unspecified lower leg, initial encounter for closed fracture Status: Acute Assessment and Plan: POD #3: ORIF left ankle trimalleolar fracture with fixation of the medial and lateral malleoli. No changes in condition from orthopedic standpoint. Patient progressing well. She is more confident in her ability to get up her stairs and take care of herself when she returns home. Okay for discharge once patient is medically stable. Ortho instructions: D/C Home Xray in 2 weeks with follow up in office. Please call [facility] orthopaedics for apointment. Keep splint intact. Toe touch weight bearing with a walker. DVT prophylaxis: continue Aspirin 81 mg twice daily until next visit. Pain medication: Oxycodone Subjective Subjective Date/Time Seen: 05/13/24 08:35 Interval history: Patient resting comfortably. Feeling more confident in her ability to care for herself at home today. Working well with therapy. She is pleased with her plan for getting up the stairs into her home. Review of Systems Review of Systems: All systems reviewed & are unremarkable except as noted in HPI and below Exam Narrative: 68 y/o female. Resting comfortably in bed. Splint intact. Elevating. Toe touch weight bearing with a walker. Ambulating well. No distress. Distal neurovascularly intact. Wiggles toes. Objective Data Vital Signs Vital Signs: Vital Signs - 24 hr 05/12/24 21:25 05/12/24 20:00 05/13/24 05:39 Temperature 97.9 F 97.5 F L Pulse Rate 79 82 Respiratory Rate 13 20 Blood Pressure 106/54 L 146/77 H Pulse Oximetry 97 92 Oxygen Delivery Room Air Intake/Output Intake/Output: Intake & Output 05/10/24 05/11/24 05/12/24 05/13/24 23:59 23:59 23:59 23:59 Intake Total 908 1487 2780 837 Output Total 400 Balance 508 1487 2780 837 Meds/Results Medications: Active Medications Generic Name Dose Route Start Last Admin Trade Name Anderson PRN Reason Stop Dose Admin Acetaminophen 650 mg 05/09/24 12:00 05/12/24 06:25 Acetaminophen 325 Mg Tablet PO 650 mg Q6HR ALEX Administration Artificial Tears 1 drop 05/09/24 09:00 05/12/24 20:26 Artificial Tears Ophth Soln 15 Ml Bottle EACH EYE Not Given QID ALEX Ascorbic Acid 500 mg 05/09/24 21:00 05/12/24 20:26 Ascorbic Acid 500 Mg Tablet PO 500 mg HS ALEX Administration Aspirin 81 mg 05/10/24 21:00 05/12/24 20:26 Aspirin 81 Mg Enteric Tablet PO 81 mg Q12HR ALEX Administration Atorvastatin Calcium 10 mg 05/09/24 21:00 05/11/24 21:12 Atorvastatin 10 Mg Tablet PO 10 mg HS ALEX Administration Brimonidine Tartrate 1 drop 05/09/24 09:00 05/12/24 20:15 Brimonidine Tartrate 0.2% Op Soln 5 Ml Btl EACH EYE 1 drop Q12HR ALEX Administration Cyclosporine 1 drop 05/09/24 09:00 05/12/24 17:26 Cyclosporine 0.4 Ml Ophth Solution EACH EYE 1 drop BID ALEX Administration Doxycycline Hyclate 100 mg 05/09/24 18:00 05/12/24 17:25 Doxycycline Hyclate 100 Mg Tablet PO 100 mg QPM ALEX Administration Escitalopram Oxalate 10 mg 05/09/24 09:00 05/12/24 08:39 Escitalopram Oxalate 10 Mg Tablet PO 10 mg DAILY ALEX Administration Fentanyl Citrate 25 mcg 05/10/24 08:14 05/10/24 10:20 Fentanyl Citrate Inj (*Crx) 100 Mcg/2 Ml Vial IV PUSH 25 mcg Q2M PRN Administration Pain Ferrous Sulfate 325 mg 05/09/24 21:00 05/12/24 20:26 Ferrous Sulfate [address] PO 325 mg HS ALEX Administration Fish Oil 1 gm 05/09/24 09:00 05/12/24 08:37 [place] 3 Polyunsat Fatty Acids 1 Gm Cap PO 1 gm QAM ALEX Administration Hydromor
[2024-05-13] MEDS: TIMOLOL MALEATE 0.5% OP SOLN 5 ML BOTTLE 1 DROP EACH EYE (08:36)
[2024-05-13] MEDS: BRIMONIDINE TARTRATE 0.2% OP SOLN 5 ML BTL 1 DROP EACH EYE (08:36)
[2024-05-13] MEDS: ARTIFICIAL TEARS OPHTH SOLN 15 ML BOTTLE 1 DROP EACH EYE ×2 (08:36→12:12)
[2024-05-13] MEDS: cycloSPORINE 0.4 ML OPHTH SOLUTION 1 DROP EACH EYE (08:36)
[2024-05-13] MEDS: SENNA/DOCUSATE SODIUM TABLET 2 TAB PO (08:37)
[2024-05-13] MEDS: ESCITALOPRAM OXALATE 10 MG TABLET PO (08:37)
[2024-05-13] MEDS: OPTI-GEN TAB 1 TABLET PO (08:37)
[2024-05-13] MEDS: CHOLECALCIFEROL 1,000 UNITS TABLET 2000 UNITS PO (08:38)
[2024-05-13] MEDS: OMEGA 3 POLYUNSAT FATTY ACIDS 1 GM CAP PO (08:38)
[2024-05-13] MEDS: ASPIRIN 81 MG ENTERIC TABLET PO (08:38)
[2024-05-13] MEDS: MELOXICAM 7.5 MG TABLET 15 MG PO (08:38)
[2024-05-13 13:53] VITALS: BP 144/70; PULSE 85; RESP 19; TEMP 36.9; O2SAT 99
[2024-05-13] MEDS: oxyCODONE/ACETAMINOPHEN (*CRX) 10-325 MG TABLET 1 TAB PO (14:56)
--- NOTE | 2024-05-13 15:30 | PM.DS ---
DS: Admitting Diagnosis Discharge Date 05/13/24 Admitting Diagnosis Left ankle pain DS: Discharge Diagnosis Discharge Diagnosis (1) Trimalleolar fracture of ankle, closed: Qualifiers: Encounter type: initial encounter Laterality: left Qualified Code(s): S82.852A - Displaced trimalleolar fracture of left lower leg, initial encounter for closed fracture Code(s): S82.853A - Displaced trimalleolar fracture of unspecified lower leg, initial encounter for closed fracture Status: Acute (2) Hypothyroidism: Qualifiers: Hypothyroidism type: unspecified Qualified Code(s): E03.9 - Hypothyroidism, unspecified Code(s): E03.9 - Hypothyroidism, unspecified Status: Acute (3) HLD (hyperlipidemia): Qualifiers: Hyperlipidemia type: mixed hyperlipidemia Qualified Code(s): E78.2 - Mixed hyperlipidemia Code(s): E78.5 - Hyperlipidemia, unspecified Status: Acute (4) Low back pain: Code(s): M54.50 - Low back pain, unspecified Status: Acute (5) Elevated LFTs: Code(s): R79.89 - Other specified abnormal findings of blood chemistry Status: Acute DS: Summary Hospital Course Reason for hospitalization: 68yo female with HLD, hypothyroidism and bronchitis here for left ankle pain after a fall. Please see H&P for details. Hospital Course: In the ED vitals were stable. Laboratory evaluation was unremarkable except for elevated LFTs. EKG showed normal sinus rhythm. X-ray of the ankle and foot showed trimalleolar ankle fracture. Splint has been placed. Orthopedic was consulted. She underwent ORIF left ankle trimalleolar fracture with fixation of the medial and lateral malleoli on 05/10/2024. She worked with PT/OT. AST, ALT and AP weer elevated on admission. Hepatitis panel negative. Acetaminophen level was negative. GEMMA from last year was elevated to 1:160. AST peaked at 633 and ALT at 412 before trending down. Right UQ ultrasound no acute findings. We discontinued Acetaminophen and Lipitor. She overall did well and was able to be discharged home on 05/13/24. She did not want home health due to family/home issues. Status at Discharge Cognitive/behavioral status at discharge: stable Time Spent with Patient Time attestation: Total time spent providing and/or coordinating discharge services: 32 minutes Time spent: Greater than 30 minutes Exam Narrative: AF 98.5 144/70 85 19 99% ra Gen - NARD Chest - CTA bilaterally, nml RR CV - RRR S1/S2 Abd - Soft, NT/ND, Positive BS Ext - left ankle/foot in soft cast with room around foot Neuro - normal sensation to the toes. Normal movement of the left toes. Psych - Nml mood and affect Skin - Warm and dry DS: Data Data Completed and Pending Labs on day of discharge: Labs from last 24 hours 05/13/24 06:02 WBC 5.7 RBC 3.35 L Hgb 10.6 L Hct 32.6 L MCV 97.3 MCH 31.6 MCHC 32.5 RDW 13.7 Plt Count 183 MPV 9.3 Immature Gran % (Auto) 0.2 Neut % (Auto) 54.6 Lymph % (Auto) 29.6 Andrews % (Auto) 10.5 H Eos % (Auto) 4.6 H Baso % (Auto) 0.5 Lymph # (Auto) 1.69 Andrews # (Auto) 0.6 Eos # (Auto) 0.3 Baso # (Auto) 0.0 Abs Immat Gran (auto) 0.01 Absolute Neuts (auto) 3.1 Absolute Nucleated RBC 0.000 Nucleated RBC % 0.0 Sodium 136 L Potassium 4.1 Chloride 100 Carbon Dioxide 28 Anion Gap 8 BUN 23 H Creatinine 0.80 Estim Creat Clear Calc 66 Estimated GFR > 60 Glucose 99 Calcium 9.2 Magnesium 1.9 Total Bilirubin 0.3 AST 245 H ALT 316 H Alkaline Phosphatase 143 H Total Protein 7.0 Albumin 3.7 Discharge Plan Discharge Attending physician on discharge: Bryn Tejada Consulting providers: Talat Puentes Discharging Clinician: Bryn Tejada Anticipated Discharge Date/Time: 05/13/24 15:41 Patient Disposition: Home, Self-Care Activity: other - see discharge instructions Diet: heart healthy Dischar
== END 2024-05-13 16:20 | disposition home or self-care (01) | DRG 494 ==
LOC: ANHED 05-09 05:26 → ANH3MEDSUR 05-09 05:27
PROVIDERS: Internal Medicine; Orthopaedic Surgery; Admitting Provider Family Medicine; Emergency Provider Emergency Medicine; PCP Nurse Practitioner Family; Visit Provider Internal Medicine
DX: S82.852A Displaced trimalleolar fracture of left lower leg, initial encounter for closed fracture (principal); I34.1 Nonrheumatic mitral (valve) prolapse; D50.9 Iron deficiency anemia, unspecified; E78.5 Hyperlipidemia, unspecified; E03.9 Hypothyroidism, unspecified; K21.9 Gastro-esophageal reflux disease without esophagitis; M19.90 Unspecified osteoarthritis, unspecified site; H40.9 Unspecified glaucoma; F32.A Depression, unspecified; W10.9XXA Fall (on) (from) unspecified stairs and steps, initial encounter; M47.816 Spondylosis without myelopathy or radiculopathy, lumbar region
CPT/HCPCS: 36415; 73600; 73620; 76705; 80048; 80053; 80074; 80307; 83735; 85025; 93005; 96374; 96376; 97110; 97116; 97161; 97165; 97530; 97535; 99199; 99285; A9270; C1713; C1769; G0378; J0690; J1170; J2405; J2704; J3010; J7120

== ENCOUNTER 2024-05-20 09:24 | Outpatient (CLI) | payer MEDICARE, SELFPAY ==
--- NOTE | ~2024-05-20 | XR_ITS ---
EXAMINATION: XR ankle LT 2V DATE: 05/20/2024 09:42 INDICATION: Trimalleolar left ankle fracture. Fall. TECHNIQUE: 2 views of left ankle were obtained. COMPARISON: Left ankle radiographs 05/10/2024 FINDINGS: There is a transverse fracture of medial malleolus in near-anatomic alignment with fixation with 2 lag screws. There is an oblique fracture of distal fibula in near-anatomic alignment with int ernal fixation with plate and multiple screws. There is a fracture of posterior malleolus in near-edwin tomic alignment. There is mild osteoarthritis of talonavicular joint. There are enthesophytes at the posterior and plantar aspects of calcaneal tuberosity. Ankle soft tissue swelling is noted. Skin stap les are noted. IMPRESSION: 1. Trimalleolar ankle fracture status post open reduction internal fixation. Reviewed, dictated and finalized at location A.
== END 2024-05-20 09:25 | disposition home or self-care (01) ==
LOC: ANHIMG 09:27
PROVIDERS: PCP Nurse Practitioner Family; Visit Provider Orthopaedic Surgery
DX: Z47.89 Encounter for other orthopedic aftercare (principal); M25.572 Pain in left ankle and joints of left foot; S82.852D Displaced trimalleolar fracture of left lower leg, subsequent encounter for closed fracture with routine healing; X58.XXXD Exposure to other specified factors, subsequent encounter
CPT/HCPCS: 73600

== ENCOUNTER 2024-06-24 11:38 | Outpatient (CLI) | payer MEDICARE, SELFPAY ==
--- NOTE | ~2024-06-24 | XR_ITS ---
XR ankle LT 2V 06/24/2024 11:56 Indication: Displaced trimalleolar fracture. Procedure: 2 views left ankle Comparison: 05/20/2024 Findings: There are healing/healed trimalleolar fractures status post internal fixation of lateral an d medial malleolar fractures with screws and fibular sideplate. Ankle mortise intact. There is anatom ic alignment. Prominent degenerative calcaneal enthesophyte. Impression: 1: Anatomic alignment of healing/healed trimalleolar fracture status post internal fixation. Reviewed, dictated and finalized at location B. Impression: 1: Anatomic alignment of healing/healed trimalleolar fracture status post inter nal fixation.
== END 2024-06-24 11:39 | disposition home or self-care (01) ==
PROVIDERS: PCP Nurse Practitioner Family; Visit Provider Physician Assistant Surgical
DX: S82.852D Displaced trimalleolar fracture of left lower leg, subsequent encounter for closed fracture with routine healing (principal); X58.XXXD Exposure to other specified factors, subsequent encounter
CPT/HCPCS: 73600

== ENCOUNTER 2025-02-03 14:23 | Outpatient (CLI) | payer MEDICARE, SELFPAY ==
--- NOTE | ~2025-02-03 | DEXA_ITS ---
Bone Density Report Name: CHRIS HOWARD Age: 69 Sex: Female Ethnicity: White Date of : 1955 Indication: postmenopausal; screening for osteoporosis; Referring Provider: JYOTI VERMA Study: Bone densitometry was performed. Exam Date: February 03, 2025 Accession number: [id number] Bone Density: Region BMD T-score Z-score Classification AP Spine(L1-L4) 1.067 0.2 2.2 Normal Femoral Neck (Left) 0.763 -0.8 0.9 Normal Total Hip (Left) 0.982 0.3 1.7 Normal Femoral Neck (Right) 0.929 0.7 2.4 Normal Total Hip (Right) 0.983 0.3 1.7 Normal Total Hip Mean 0.983 0.3 1.7 Normal World Health Organization criteria for BMD impression classify patients as: Normal (T-score at or above -1.0), Osteopenia (T-score between -1.0 and -2.5), or Osteoporosis (T-score at or below -2.5). 10-year Fracture Risk: FRAX not reported because: All T-scores for Spine Total, Hip Total, Femoral Neck at or above -1.0 Previous Exams: -- Region Exam Age BMD T-score BMD Change BMD Change Date g/cm2 vs Baseline vs Previous -- AP Spine (L1-L4) 02/03/2025 69 1.067 0.2 -1.1% 0.6% 04/13/2021 65 1.060 0.1 -1.7% -1.7% 02/11/2014 58 1.079 0.3 Total Hip(Left) 02/03/2025 69 0.982 0.3 -3.2%* 0.4% 04/13/2021 65 0.978 0.3 -3.6%* -0.5% 02/11/2014 58 0.983 0.3 -3.1%* -1.4% 02/22/2010 54 0.997 0.4 -1.8% -1.8% 01/28/2008 52 1.015 0.6 Total Hip(Right) 02/03/2025 69 0.983 0.3 -1.0% 4.8%* 04/13/2021 65 0.937 0.0 -5.5%* -3.2%* 02/11/2014 58 0.969 0.2 -2.4% -0.7% 02/22/2010 54 0.975 0.3 -1.8% -1.8% 01/28/2008 52 0.993 0.4 -- *Denotes significance at 95% confidence level, LSC for AP Spine = 0.022 g/cm2, LSC for Total Hip = 0.027 g/cm2 Clinical Information Provided by Patient: Has used the following medications: Vitamin D, Calcium Patient maximum height was 67.5 Menopause Age: 49 No regular weight bearing exercise Drinks caffeinated beverages Onset of menses at age 13 Number of children 3 Impression: The patient has normal bone mass. No significant bone loss was observed. Discussion: BONE DENSITY IS ABOVE THE MINIMUM DESIRABLE LEVEL AT ALL SKELETAL SITES TESTED. This patient?s bone mineral density is above the minimum desirable level (T-score -1.0 or better) at all sites measured. The patient should follow a healthful lifestyle (good nutrition with adequate calcium and vitamin D, and appropriate weight-bearing exercise). Follow-Up: Consider repeating this study in 5 years or sooner if there is some new clinical indication. Reported by: RADHA on 02/03/2025 2:42:00 PM. Reviewed, dictated and finalized at location A.
== END 2025-02-03 14:24 | disposition home or self-care (01) ==
LOC: MICIMG 14:24
PROVIDERS: PCP Nurse Practitioner Family; Visit Provider Nurse Practitioner Family
DX: Z78.0 Asymptomatic menopausal state (principal)
CPT/HCPCS: 77080